=== PATIENT | male | born 1955 | race Caucasian/White ===

== ENCOUNTER → 2022-03-25 07:00 | Outpatient (CLI) | payer MEDICARE, OTHER, SELFPAY ==
[2022-03-25 18:51] LABS: Hemoglobin A1C 8.5 % (4.0-6.0)
[2022-03-25 19:11] LABS: Prostate Specific Ag Screen 1.7 ng/ml (0.0-4.0)
== END ==
PROVIDERS: PCP Family Medicine; Visit Provider Family Medicine
DX: Z85.46 Personal history of malignant neoplasm of prostate (principal); E11.9 Type 2 diabetes mellitus without complications; Z79.84 Long term (current) use of oral hypoglycemic drugs; Z12.5 Encounter for screening for malignant neoplasm of prostate
CPT/HCPCS: 83036; G0103

== ENCOUNTER → 2022-05-29 21:40 | Outpatient (CLI) | payer MEDICARE, OTHER, SELFPAY ==
[2022-05-29 18:34] LABS: Prostate Specific Ag, Diagnost 0.711 ng/ml (0.0-4.0)
== END ==
PROVIDERS: PCP Family Medicine; Visit Provider Family Medicine
DX: C61 Malignant neoplasm of prostate (principal)
CPT/HCPCS: 84153

== ENCOUNTER → 2022-07-02 23:27 | Outpatient (CLI) | payer MEDICARE, OTHER, SELFPAY ==
[2022-07-02 17:11] LABS: Basophils # 0.1 K/mm3 (0-0.2); Basophils % 0.9 % (0.1-2.0); Eosinophils # 0.2 K/mm3 (0.0-0.4); Eosinophils % 2.8 % (0.1-12.0); Hemoglobin 16.5 g/dL (14.1-18.0); Lymphocytes # 1.7 K/mm3 (0.7-4.5); Mean Corpuscular HGB Conc 33.7 g/dL (31.8-35.4); Mean Corpuscular Hemoglobin 31.3 pg (27.0-31.2); Mean Corpuscular Volume 92.8 fl (80-94); Mean Platelet Volume 9.9 fl (7.4-10.4); Monocytes # 0.8 K/mm3 (0.1-1.0); Monocytes % 9.3 % (1.7-9.3); Neutrophils # 5.3 K/mm3 (1.8-7.8); Neutrophils % 66.1 % (37.0-80.0); Platelet Count 181 K/mm3 (142-424); Red Blood Count 5.28 M/mm3 (4.60-6.20); Red Cell Distribution Width 13.3 % (11.5-17.5); White Blood Count 8.1 K/mm3 (4.8-10.8)
[2022-07-02 17:12] LABS: Alanine Aminotransferase 39 U/L (12-78); Albumin Level 3.9 g/dl (3.5-5.0); Albumin/Globulin Ratio 1.6 (1.1-1.8); Alkaline Phosphatase 78 U/L (38-126); Anion Gap 13.4 mEq/L (5-15); Aspartate Amino Transferase 36 U/L (17-59); Blood Urea Nitrogen 23 mg/dl (9-20); Calcium 9.1 mg/dl (8.4-10.2); Carbon Dioxide 28 mmol/L (22.0-30.0); Chloride 96 mmol/L (98-107); Chol/HDL Ratio 6.4 (1-3.5); Cholesterol 179 mg/dl (140-200); Estimated Glomerular Filt Rate 67 ml/min (>60); GFR (African American) 81 ML/MIN (>60); Globulin 2.4 g/dL (1.3-3.2); Glucose 203 mg/dl (74-100); HDL Cholesterol 28 mg/dl (40-60); Potassium 4.4 mmoL/L (3.5-5.1); Sodium 133 mmol/L (136-145); Total Protein,Serum 6.3 g/dl (6.3-8.2); Triglycerides 279 mg/dl (30-150); VLDL Cholesterol 56 mg/dL (0-40)
[2022-07-02 17:29] LABS: Creatinine,Urine Random 114 mg/dL (Not Estab.); Hemoglobin A1C 8.7 % (4.0-6.0)
[2022-07-02 17:30] LABS: Microalbumin/Creatinine Ratio 9.8
[2022-07-02 17:35] LABS: Direct LDL Cholesterol 110.43 mg/dL (100-129)
[2022-07-02 17:43] LABS: Prostate Specific Ag, Diagnost 0.566 ng/ml (0.0-4.0); Thyroid Stimulating Hormone 1.91 uIU/mL (0.465-4.68)
== END ==
PROVIDERS: PCP Family Medicine; Visit Provider Family Medicine
DX: C61 Malignant neoplasm of prostate (principal); E11.9 Type 2 diabetes mellitus without complications; E78.5 Hyperlipidemia, unspecified; I10 Essential (primary) hypertension; K21.9 Gastro-esophageal reflux disease without esophagitis; Z79.4 Long term (current) use of insulin
CPT/HCPCS: 80053; 80061; 82043; 82570; 83036; 84153; 84443; 85025

== ENCOUNTER → 2022-09-04 19:12 | Outpatient (CLI) | payer MEDICARE, OTHER, SELFPAY ==
[2022-09-04 20:59] LABS: Prostate Specific Ag, Diagnost 0.281 ng/ml (0.0-4.0)
== END ==
PROVIDERS: PCP Urology; Visit Provider Urology
DX: C61 Malignant neoplasm of prostate (principal)
CPT/HCPCS: 84153

== ENCOUNTER → 2022-11-26 23:00 | Outpatient (CLI) | payer MEDICARE, OTHER, SELFPAY ==
[2022-11-26 17:30] LABS: Prostate Specific Ag, Diagnost 0.202 ng/ml (0.0-4.0)
[2022-11-26 19:12] LABS: Hemoglobin A1C 8.6 % (4.0-6.0)
== END ==
PROVIDERS: PCP Family Medicine; Visit Provider Family Medicine
DX: C61 Malignant neoplasm of prostate (principal); E11.9 Type 2 diabetes mellitus without complications; Z79.84 Long term (current) use of oral hypoglycemic drugs
CPT/HCPCS: 83036; 84153

== ENCOUNTER → 2023-02-15 21:42 | Outpatient (CLI) | payer MEDICARE, OTHER, SELFPAY ==
[2023-02-17 11:13] LABS: Prostate Specific Ag, Diagnost 0.095 ng/ml (0.0-4.0)
== END ==
PROVIDERS: PCP Urology; Visit Provider Urology
DX: C61 Malignant neoplasm of prostate (principal)
CPT/HCPCS: 84153

== ENCOUNTER 2023-06-21 17:52 | Outpatient (CLI) | payer MEDICARE, OTHER, SELFPAY ==
[2023-06-21 16:16] LABS: Basophils # 0.1 K/mm3 (0-0.2); Basophils % 0.9 % (0.1-2.0); Eosinophils # 0.2 K/mm3 (0.0-0.4); Eosinophils % 2.7 % (0.1-12.0); Hematocrit 49.6 % (42.0-52.0); Hemoglobin 15.9 g/dL (14.1-18.0); Lymphocytes # 1.7 K/mm3 (0.7-4.5); Lymphocytes % 24.1 % (10-50); Mean Corpuscular HGB Conc 32.1 g/dL (31.8-35.4); Mean Corpuscular Hemoglobin 32.1 pg (27.0-31.2); Mean Corpuscular Volume 100.2 fl (80-94); Mean Platelet Volume 9.8 fl (7.4-10.4); Monocytes # 0.6 K/mm3 (0.1-1.0); Neutrophils # 4.4 K/mm3 (1.8-7.8); Neutrophils % 64.3 % (37.0-80.0); Platelet Count 140 K/mm3 (142-424); Red Blood Count 4.96 M/mm3 (4.60-6.20); Red Cell Distribution Width 13.4 % (11.5-17.5); White Blood Count 6.9 K/mm3 (4.8-10.8)
[2023-06-21 16:58] LABS: Alanine Aminotransferase 32 U/L (12-78); Albumin Level 3.9 g/dl (3.5-5.0); Albumin/Globulin Ratio 1.6 (1.1-1.8); Alkaline Phosphatase 91 U/L (38-126); Anion Gap 9.7 mEq/L (5-15); Aspartate Amino Transferase 29 U/L (17-59); Bilirubin,Total 0.9 mg/dl (0.2-1.3); Blood Urea Nitrogen 27 mg/dl (9-20); Calcium 9.6 mg/dl (8.4-10.2); Carbon Dioxide 30 mmol/L (22.0-30.0); Chloride 101 mmol/L (98-107); Cholesterol 182 mg/dl (140-200); Estimated Glomerular Filt Rate 67 ml/min (>60); GFR (African American) 81 ML/MIN (>60); Globulin 2.5 g/dL (1.3-3.2); Glucose 243 mg/dl (74-100); HDL Cholesterol 26 mg/dl (40-60); Potassium 4.7 mmoL/L (3.5-5.1); Sodium 136 mmol/L (136-145); Total Protein,Serum 6.4 g/dl (6.3-8.2); Triglycerides 273 mg/dl (30-150); VLDL Cholesterol 55 mg/dL (0-40)
[2023-06-21 17:09] LABS: Direct LDL Cholesterol 104.92 mg/dL (100-129)
[2023-06-21 17:14] LABS: Microalbumin/Creatinine Ratio 9.2
[2023-06-21 17:19] LABS: Creatinine,Urine Random 98 mg/dL (Not Estab.)
[2023-06-21 17:28] LABS: Prostate Specific Ag, Diagnost 0.083 ng/ml (0.0-4.0)
[2023-06-21 17:51] LABS: Hemoglobin A1C 9.6 % (4.0-6.0)
== END 2023-06-21 23:59 ==
LOC: LAB.DROPOF 17:52
PROVIDERS: PCP Family Medicine; Visit Provider Family Medicine
DX: E11.9 Type 2 diabetes mellitus without complications (principal); I10 Essential (primary) hypertension; C61 Malignant neoplasm of prostate; Z79.4 Long term (current) use of insulin; Z79.84 Long term (current) use of oral hypoglycemic drugs
CPT/HCPCS: 80053; 80061; 82043; 82570; 83036; 84153; 85025

== ENCOUNTER 2023-08-29 21:20 | Inpatient (IN) | payer MEDICARE, OTHER, SELFPAY ==
--- NOTE | 2023-08-29 21:59 | [facility].EDGENADL ---
Discharge Plan Disposition Patient Disposition: Admitted Prescriptions Prescriptions: No Action (DME) Accu-Chek Ashly Plus test strp Strip See Rx Instructions .Route Qty: 100 5RF Rx Instructions: Use to check blood sugar BID times daily prn atorvastatin 40 mg tablet 40 mg PO DAILY Qty: 90 3RF bisoprolol fumarate 5 mg tablet 5 mg PO DAILY Qty: 90 3RF fenofibrate 160 mg tablet 160 mg PO DAILY Qty: 90 3RF lisinopril-hydrochlorothiazide 10-12.5 mg tablet See Rx Instructions .ROUTE .COMPLEX Qty: 90 3RF Dose Instruction: TAKE 1 TABLET EVERY DAY Rx Instructions: TAKE 1 TABLET EVERY DAY metformin 500 mg tablet 500 mg PO BID 90 Days Qty: 180 3RF omeprazole 20 mg capsule,delayed release(DR/EC) 20 mg PO DAILY 90 Days Qty: 90 3RF codeine-guaifenesin 10-100 mg/5 mL liquid 10 ml PO Q6H PRN (Reason: cough) Qty: 120 2RF (DME) pen needle, diabetic [BD Ultra-Fine Short Pen Needle] 31 gauge x 5/16 needle See Rx Instructions .Route Qty: 100 6RF Rx Instructions: As directed Novolin 70-30 FlexPen U-100 100 unit/mL (70-30) insulin pen 50 unit SQ BID 90 Days Qty: 90 3RF Rx Instructions: 60 units in the morning and 50 units QHS (DME) pen needle, diabetic [Droplet Pen Needle] 32 gauge x 5/32 needle See Rx Instructions .ROUTE .MEDSUPPLY Qty: 100 3RF Rx Instructions: As directed Referrals Follow up/Referrals: Saskia Vora APRN [Primary Care Provider] - See instructions Clinical Impressions Clinical Impression: Pulmonary embolism with acute cor pulmonale Qualifiers: Pulmonary embolism type: other Chronicity: acute Qualified Code(s): I26.09 - Other pulmonary embolism with acute cor pulmonale Discharge ED Provider: Andriy Ruiz General Adult HPI <DEBORA Joel - Last Filed: 08/29/23 22:54> General Chief complaint: Shortness of Breath/Dyspnea Stated complaint: SOA, cough Time Seen by Provider: 08/29/23 21:45 History of Present Illness HPI narrative: Patient presents with 30 days of progressive dyspnea and bilateral lower extremity swelling. Patient initially was diagnosed what was thought to be an upper respiratory tract infection prescribed antibiotics however his dyspnea on exertion did not improve. He was then diagnosed with bronchitis and prescribed another round of antibiotics however his dyspnea has continued to worsen. Patient is now reported that he is dyspneic even with light exertion and sometimes even at rest. Patient however denies chest pain fever chills hemoptysis hematochezia melena nausea vomit diarrhea or productive cough. Patient denies a history of known CHF however he does have risk factors including hyperlipidemia hypertension and insulin-dependent type 2 diabetes mellitus.. Related Data Previous Rx's Medication Instructions Recorded pen needle, diabetic 31 gauge x #100 ea 05/04/2208/25 (BD Ultra-Fine Short Pen Needle) blood sugar diagnostic (Accu-Chek #100 ea 07/02/22 Ashly Plus test strips) atorvastatin 40 mg tablet 40 mg PO DAILY #90 tabs 11/26/22 bisoprolol fumarate 5 mg tablet 5 mg PO DAILY #90 tabs 11/26/22 fenofibrate 160 mg tablet 160 mg PO DAILY #90 tabs 11/26/22 lisinopril 10 See Rx Instructions .Route 11/26/22 mg-hydrochlorothiazide 12.5 mg .COMPLEX #90 tabs tablet metformin 500 mg tablet 500 mg PO BID 90 days #180 tabs 11/26/22 omeprazole 20 mg capsule,delayed 20 mg PO DAILY 90 days #90 caps 11/26/22 release insulin NPH-regular 70-30 U-100 50 unit (0.5 mL) SQ BID 90 days 11/27/22 insulin 100 unit/mL subcutaneous #90 mL pen (Novolin 70-30 FlexPen U-100 Insulin) pen needle, diabetic 32 gauge x #100 ea 05/24/23 (Droplet Pen Needle) codeine 10 mg-guaifenesin 100 mg/5 10 ml PO Q6H PRN cough #120 mL 08/27/23 mL oral liquid Allergies Allergy/AdvReac Type Severity Reaction Status Date / Time acetaminophen [From Lortab] Allergy Verified 08/27/23 09:00 hydrocodone [From Lortab] Allergy Verified 08/27/23 09:00 [facility] <DEBORA Joel - Last Filed: 08/29/23 22:54> [facility] Disclaimer: The information contained in this section may have been updated after the patient was seen, as this information can be updated by other users. Medical History History of prostate cancer Cataract FH: cholecystectomy Prostate cancer Hyperlipidemia Hypertension Diabetes mellitus Surgical History H/O circumcision History of appendectomy H/O knee surgery Family History Mother Stroke Father Stroke Social History Smoking Status: Unknown if ever smoked second hand exposure: No alcohol intake: never current occupational status: retired Travel in the last 8 weeks: None household members: spouse housing: house marital status: <DEBORA Joel - Last Filed: 08/29/23 22:54> ROS Obtained: Yes Systems reviewed as appropriate & no additional complaints except as documented Physical Exam <DEBORA Joel - Last Filed: 08/29/23 22:54> General General appearance: alert and in no apparent distress Head Head exam: atraumatic and normal inspection Eye Eye exam: Present normal appearance, PERRL and EOMI ENT ENT exam: Present normal exam, normal oropharynx and mucous membranes moist Neck Neck exam: Present normal inspection and full ROM; Absent lymphadenopathy Chest Chest inspection: Present normal inspection and symmetric chest wall rise Respiratory Respiratory exam: Present normal lung sounds bilaterally and respiratory distress; Absent wheezes, stridor or accessory muscle use Cardiovascular Cardiovascular exam: Present regular rate, normal rhythm, normal heart sounds, +S1 and +S2 Abdominal Exam Abdominal exam: Present soft (Central obesity) and normal bowel sounds; Absent tenderness, guarding or rebound Extremities Exam Extremities exam: Present normal inspection, full ROM and edema (3+ bilateral pitting edema); Absent tenderness Back Exam Back exam: Present normal inspection and full ROM; Absent tenderness, CVA tenderness (R) or CVA tenderness (L) Neurological Exam Neurological exam: Present alert, oriented X3 and CN II-XII intact Psychiatric Psychiatric exam: Present normal affect and normal mood Skin Skin exam: Present warm, dry and normal color Medical Decision Making <DEBORA Joel - Last Filed: 08/29/23 22:54> Medical Records Medical records reviewed: Yes I reviewed the patient's medical records. Kuldip Inquiry Pt receiving controlled substance: No Vital Signs: 08/29/23 22:18 08/29/23 23:01 08/29/23 23:15 Temperature 98.2 F Temperature Source Oral Pulse Rate 98 H 98 H Pulse Rate [Right Brachial] 101 H Respiratory Rate 16 24 Blood Pressure 118/69 124/83 Blood Pressure [Right Arm] 124/81 Blood Pressure Mean 85 Blood Pressure Mean [Right Arm] 95 Blood Pressure Source [Right Arm] Automatic Cuff Blood Pressure Position [Right Arm] Sitting 02 Sat by Pulse Oximetry 93 L 91 L 91 L Oxygen Delivery Method Room Air 08/29/23 23:30 08/30/23 00:10 Temperature Temperature Source Pulse Rate 97 H 111 H Pulse Rate [Right Brachial] Respiratory Rate 23 Blood Pressure 98/72 L Blood Pressure [Right Arm] Blood Pressure Mean Blood Pressure Mean [Right Arm] Blood Pressure Source [Right Arm] Blood Pressure Position [Right Arm] 02 Sat by Pulse Oximetry 89 L 89 L Oxygen Delivery Method Lab Data Lab results reviewed: Yes I reviewed the patient's lab results. Lab Results 08/29/23 22:34: WBC 10.7, RBC 4.50 L, Hgb 16.0, Hct 43.2, MCV 96.0 H, MCH 35.5 H, MCHC 36.9 H, RDW 14.0, Plt Count 113 L, MPV 9.0, Neut % (Auto) 72.4, Lymph % (Auto) 18.0, Graves % (Auto) 7.3, Eos % (Auto) 1.6, Baso % (Auto) 0.7, Neut # (Auto) 7.7, Lymph # (Auto) 1.9, Graves # (Auto) 0.8, Eos # (Auto) 0.2, Baso # (Auto) 0.1, PT 11.8, INR 1.10, D-Dimer 6.43 H, Sodium 135 L, Potassium 4.1, Chloride 99, Carbon Dioxide 26, Anion Gap 14.1, BUN 26 H, Creatinine 1.20, Estimated Creat Clear 59, Estimated GFR 60, Est GFR ( Amer) 73, Glucose 372 H, Calcium 9.6, Magnesium 1.5 L, Total Bilirubin 0.7, AST 99 H, ALT 162 H, Alkaline Phosphatase 105, Troponin I 0.12 H, NT-Pro-B Natriuret Pep 4530 H, Total Protein 6.7, Albumin 3.9, Globulin 2.8, Albumin/Globulin Ratio 1.4 08/30/23 00:00: Urine Color Yellow, Urine Appearance Clear, Urine pH 5.5, Ur Specific Vina 1.015, Urine Protein Negative, Urine Glucose (UA) 3+, Urine Ketones Negative, Urine Blood Trace-i, Urine Nitrate Negative, Urine Bilirubin Negative, Urine Urobilinogen 0.2, Ur Leukocyte Esterase Negative, Urine RBC Occasional, Urine WBC None, Ur Squamous Epith Cells Occasional, Urine Bacteria None 08/29/23 22:34 08/29/23 22:34 Orders (Tests/Meds): ED MEDICATIONS Generic Name Dose Route Start Last Admin Trade Name Freq PRN Reason Stop Dose Admin Enoxaparin Sodium 135 mg 08/30/23 00:15 Enoxaparin 100mg/Ml Syringe 1 mg/kg (135 mg) 09/29/23 00:14 SQ Q12H SHAWN Nicotine 21 mg 08/30/23 00:20 Nicotine 21mg/24hr Patch TD 09/29/23 00:19 DAILYP PRN Nicotine Cravings Ondansetron HCl 4 mg 08/30/23 00:20 Ondansetron 4mg/2ml Vial IV 09/29/23 00:19 Q8HP PRN Nausea Pantoprazole Sodium 40 mg 08/30/23 09:00 Pantoprazole 40mg Tablet PO 09/29/23 08:59 DAILY SHAWN Sodium Chloride 10 ml 08/30/23 00:12 08/30/23 00:13 Sodium Chloride 0.9% 10ml Syr (Rad Only) IV 09/29/23 00:11 10 ml NEEDED PRN Administration Maintain IV Site Discontinued Medications Generic Name Dose Route Start Last Admin Trade Name Freq PRN Reason Stop Dose Admin Furosemide 40 mg 08/29/23 22:12 08/29/23 23:16 Furosemide 40mg/4ml Vial IV 08/29/23 22:13 40 mg ONCE ONE Administration Sodium Chloride 1,000 mls @ 75 mls/hr 08/30/23 00:30 Sod Chlor 0.9% 1000ml Bag IV 09/29/23 00:29 .[id number] SHAWN Iopamidol 70 ml 08/30/23 00:12 08/30/23 00:13 Iopamidol-370 (76%);100ml Bottle IV 08/30/23 00:13 70 ml ONCE ONE Administration Sodium Chloride 50 ml 08/30/23 00:12 08/30/23 00:13 0.9 % Sodium Chloride 50 Ml Vial IV 08/30/23 00:13 50 ml ONCE ONE Administration ORDERS Category Date Time Status CT angio chest PE protocol Stat Cat Scan 08/29/23 23:09 Completed Cardiology Consult [Consult to Cardiology] [CONS] Cons 08/30/23 00:20 Active Routine Consult to Cardiology [CONS] Routine Cons 08/30/23 00:21 Active Chest XR 2 view (NOT portable) [XR chest 2V] Stat Exams 08/29/23 22:12 Completed POCUS Point of Care (ER Only) Stat Exams 08/29/23 22:15 Completed BNP [NT Pro Brain Natriuretic Pep.] Stat Lab 08/29/23 22:34 Completed CBC w/Auto Diff [Complete Blood Count Auto Diff] Stat Lab 08/29/23 22:34 Completed CMP [Comprehensive Metabolic Panel] Stat Lab 08/29/23 22:34 Completed Complete Blood Count Auto Diff AMLAB Lab 08/30/23 06:00 Ordered Comprehensive Metabolic Panel AMLAB Lab 08/30/23 06:00 Ordered D-Dimer Stat Lab 08/29/23 22:34 Completed INR [Prothrombin Time INR] Stat Lab 08/29/23 22:34 Completed Magnesium AMLAB Lab 08/30/23 06:00 Ordered Magnesium Stat Lab 08/29/23 22:34 Completed Trop I [Troponin I] Stat Lab 08/29/23 22:34 Completed Troponin I Q3H Lab 08/30/23 01:30 Ordered Troponin I Q3H Lab 08/30/23 04:30 Ordered UA [Urinalysis and Microscopic] Stat Lab 08/30/23 00:00 Completed Medical Decision Narrative: In summary patient is a 68-year-old male who presents to the emergency department for evaluation of dyspnea. Patient is normotensive slightly elevated heart rate but afebrile satting at greater than 94% on room air currently upon arrival, and afebrile. Physical exam is remarkable for 3+ bilateral dependent edema but breath sounds are clear and equal bilaterally may be slightly diminished at the right base with no adventitious sounds. Differential diagnosis includes CHF versus anasarca versus venous insufficiency versus ACS etc. Initial workup will be conducted with hematologic labs 2 view x-ray of the chest urinalysis twelve-lead EKG. Initial interventions include Lasix 40 mg IV push initially pending lab workup. Initial workup pending at the time of handoff to Dr. Ruiz at 2300 hrs. <Carter Hall MD - Last Filed: 08/29/23 23:10> Vital Signs: 08/29/23 22:18 08/29/23 23:01 08/29/23 23:15 Temperature 98.2 F Temperature Source Oral Pulse Rate 98 H 98 H Pulse Rate [Right Brachial] 101 H Respiratory Rate 16 24 Blood Pressure 118/69 124/83 Blood Pressure [Right Arm] 124/81 Blood Pressure Mean 85 Blood Pressure Mean [Right Arm] 95 Blood Pressure Source [Right Arm] Automatic Cuff Blood Pressure Position [Right Arm] Sitting 02 Sat by Pulse Oximetry 93 L 91 L 91 L Oxygen Delivery Method Room Air 08/29/23 23:30 08/30/23 00:10 Temperature Temperature Source Pulse Rate 97 H 111 H Pulse Rate [Right Brachial] Respiratory Rate 23 Blood Pressure 98/72 L Blood Pressure [Right Arm] Blood Pressure Mean Blood Pressure Mean [Right Arm] Blood Pressure Source [Right Arm] Blood Pressure Position [Right Arm] 02 Sat by Pulse Oximetry 89 L 89 L Oxygen Delivery Method Lab Data Lab Results 08/29/23 22:34: WBC 10.7, RBC 4.50 L, Hgb 16.0, Hct 43.2, MCV 96.0 H, MCH 35.5 H, MCHC 36.9 H, RDW 14.0, Plt Count 113 L, MPV 9.0, Neut % (Auto) 72.4, Lymph % (Auto) 18.0, Graves % (Auto) 7.3, Eos % (Auto) 1.6, Baso % (Auto) 0.7, Neut # (Auto) 7.7, Lymph # (Auto) 1.9, Graves # (Auto) 0.8, Eos # (Auto) 0.2, Baso # (Auto) 0.1, PT 11.8, INR 1.10, D-Dimer 6.43 H, Sodium 135 L, Potassium 4.1, Chloride 99, Carbon Dioxide 26, Anion Gap 14.1, BUN 26 H, Creatinine 1.20, Estimated Creat Clear 59, Estimated GFR 60, Est GFR ( Amer) 73, Glucose 372 H, Calcium 9.6, Magnesium 1.5 L, Total Bilirubin 0.7, AST 99 H, ALT 162 H, Alkaline Phosphatase 105, Troponin I 0.12 H, NT-Pro-B Natriuret Pep 4530 H, Total Protein 6.7, Albumin 3.9, Globulin 2.8, Albumin/Globulin Ratio 1.4 08/30/23 00:00: Urine Color Yellow, Urine Appearance Clear, Urine pH 5.5, Ur Specific Vina 1.015, Urine Protein Negative, Urine Glucose (UA) 3+, Urine Ketones Negative, Urine Blood Trace-i, Urine Nitrate Negative, Urine Bilirubin Negative, Urine Urobilinogen 0.2, Ur Leukocyte Esterase Negative, Urine RBC Occasional, Urine WBC None, Ur Squamous Epith Cells Occasional, Urine Bacteria None Orders (Tests/Meds): ED MEDICATIONS Generic Name Dose Route Start Last Admin Trade Name Freq PRN Reason Stop Dose Admin Enoxaparin Sodium 135 mg 08/30/23 00:15 Enoxaparin 100mg/Ml Syringe 1 mg/kg (135 mg) 09/29/23 00:14 SQ Q12H SHAWN Nicotine 21 mg 08/30/23 00:20 Nicotine 21mg/24hr Patch TD 09/29/23 00:19 DAILYP PRN Nicotine Cravings Ondansetron HCl 4 mg 08/30/23 00:20 Ondansetron 4mg/2ml Vial IV 09/29/23 00:19 Q8HP PRN Nausea Pantoprazole Sodium 40 mg 08/30/23 09:00 Pantoprazole 40mg Tablet PO 09/29/23 08:59 DAILY SHAWN Sodium Chloride 10 ml 08/30/23 00:12 08/30/23 00:13 Sodium Chloride 0.9% 10ml Syr (Rad Only) IV 09/29/23 00:11 10 ml NEEDED PRN Administration Maintain IV Site Discontinued Medications Generic Name Dose Route Start Last Admin Trade Name Freq PRN Reason Stop Dose Admin Furosemide 40 mg 08/29/23 22:12 08/29/23 23:16 Furosemide 40mg/4ml Vial IV 08/29/23 22:13 40 mg ONCE ONE Administration Sodium Chloride 1,000 mls @ 75 mls/hr 08/30/23 00:30 Sod Chlor 0.9% 1000ml Bag IV 09/29/23 00:29 .[id number] SHAWN Iopamidol 70 ml 08/30/23 00:12 08/30/23 00:13 Iopamidol-370 (76%);100ml Bottle IV 08/30/23 00:13 70 ml ONCE ONE Administration Sodium Chloride 50 ml 08/30/23 00:12 08/30/23 00:13 0.9 % Sodium Chloride 50 Ml Vial IV 08/30/23 00:13 50 ml ONCE ONE Administration ORDERS Category Date Time Status CT angio chest PE protocol Stat Cat Scan 08/29/23 23:09 Completed Cardiology Consult [Consult to Cardiology] [CONS] Cons 08/30/23 00:20 Active Routine Consult to Cardiology [CONS] Routine Cons 08/30/23 00:21 Active Chest XR 2 view (NOT portable) [XR chest 2V] Stat Exams 08/29/23 22:12 Completed POCUS Point of Care (ER Only) Stat Exams 08/29/23 22:15 Completed BNP [NT Pro Brain Natriuretic Pep.] Stat Lab 08/29/23 22:34 Completed CBC w/Auto Diff [Complete Blood Count Auto Diff] Stat Lab 08/29/23 22:34 Completed CMP [Comprehensive Metabolic Panel] Stat Lab 08/29/23 22:34 Completed Complete Blood Count Auto Diff AMLAB Lab 08/30/23 06:00 Ordered Comprehensive Metabolic Panel AMLAB Lab 08/30/23 06:00 Ordered D-Dimer Stat Lab 08/29/23 22:34 Completed INR [Prothrombin Time INR] Stat Lab 08/29/23 22:34 Completed Magnesium AMLAB Lab 08/30/23 06:00 Ordered Magnesium Stat Lab 08/29/23 22:34 Completed Trop I [Troponin I] Stat Lab 08/29/23 22:34 Completed Troponin I Q3H Lab 08/30/23 01:30 Ordered Troponin I Q3H Lab 08/30/23 04:30 Ordered UA [Urinalysis and Microscopic] Stat Lab 08/30/23 00:00 Completed ECG Data Tracing #1: Independently interpreted by me, rate is 101, rhythm is regular, axis is borderline leftward deviated, no ST elevation in anatomical contiguous leads, diffuse T wave inversions. QTc 464 <Andriy Ruiz MD - Last Filed: 08/30/23 00:29> Vital Signs: 08/29/23 22:18 08/29/23 23:01 08/29/23 23:15 Temperature 98.2 F Temperature Source Oral Pulse Rate 98 H 98 H Pulse Rate [Right Brachial] 101 H Respiratory Rate 16 24 Blood Pressure 118/69 124/83 Blood Pressure [Right Arm] 124/81 Blood Pressure Mean 85 Blood Pressure Mean [Right Arm] 95 Blood Pressure Source [Right Arm] Automatic Cuff Blood Pressure Position [Right Arm] Sitting 02 Sat by Pulse Oximetry 93 L 91 L 91 L Oxygen Delivery Method Room Air 08/29/23 23:30 08/30/23 00:10 Temperature Temperature Source Pulse Rate 97 H 111 H Pulse Rate [Right Brachial] Respiratory Rate 23 Blood Pressure 98/72 L Blood Pressure [Right Arm] Blood Pressure Mean Blood Pressure Mean [Right Arm] Blood Pressure Source [Right Arm] Blood Pressure Position [Right Arm] 02 Sat by Pulse Oximetry 89 L 89 L Oxygen Delivery Method Lab Data Lab Results 08/29/23 22:34: WBC 10.7, RBC 4.50 L, Hgb 16.0, Hct 43.2, MCV 96.0 H, MCH 35.5 H, MCHC 36.9 H, RDW 14.0, Plt Count 113 L, MPV 9.0, Neut % (Auto) 72.4, Lymph % (Auto) 18.0, Graves % (Auto) 7.3, Eos % (Auto) 1.6, Baso % (Auto) 0.7, Neut # (Auto) 7.7, Lymph # (Auto) 1.9, Graves # (Auto) 0.8, Eos # (Auto) 0.2, Baso # (Auto) 0.1, PT 11.8, INR 1.10, D-Dimer 6.43 H, Sodium 135 L, Potassium 4.1, Chloride 99, Carbon Dioxide 26, Anion Gap 14.1, BUN 26 H, Creatinine 1.20, Estimated Creat Clear 59, Estimated GFR 60, Est GFR ( Amer) 73, Glucose 372 H, Calcium 9.6, Magnesium 1.5 L, Total Bilirubin 0.7, AST 99 H, ALT 162 H, Alkaline Phosphatase 105, Troponin I 0.12 H, NT-Pro-B Natriuret Pep 4530 H, Total Protein 6.7, Albumin 3.9, Globulin 2.8, Albumin/Globulin Ratio 1.4 08/30/23 00:00: Urine Color Yellow, Urine Appearance Clear, Urine pH 5.5, Ur Specific Vina 1.015, Urine Protein Negative, Urine Glucose (UA) 3+, Urine Ketones Negative, Urine Blood Trace-i, Urine Nitrate Negative, Urine Bilirubin Negative, Urine Urobilinogen 0.2, Ur Leukocyte Esterase Negative, Urine RBC Occasional, Urine WBC None, Ur Squamous Epith Cells Occasional, Urine Bacteria None Orders (Tests/Meds): ED MEDICATIONS Generic Name Dose Route Start Last Admin Trade Name Alexandra PRN Reason Stop Dose Admin Enoxaparin Sodium 135 mg 08/30/23 00:15 Enoxaparin 100mg/Ml Syringe 1 mg/kg (135 mg) 09/29/23 00:14 SQ Q12H SHAWN Nicotine 21 mg 08/30/23 00:20 Nicotine 21mg/24hr Patch TD 09/29/23 00:19 DAILYP PRN Nicotine Cravings Ondansetron HCl 4 mg 08/30/23 00:20 Ondansetron 4mg/2ml Vial IV 09/29/23 00:19 Q8HP PRN Nausea Pantoprazole Sodium 40 mg 08/30/23 09:00 Pantoprazole 40mg Tablet PO 09/29/23 08:59 DAILY SHAWN Sodium Chloride 10 ml 08/30/23 00:12 08/30/23 00:13 Sodium Chloride 0.9% 10ml Syr (Rad Only) IV 09/29/23 00:11 10 ml NEEDED PRN Administration Maintain IV Site Discontinued Medications Generic Name Dose Route Start Last Admin Trade Name Alexandra PRN Reason Stop Dose Admin Furosemide 40 mg 08/29/23 22:12 08/29/23 23:16 Furosemide 40mg/4ml Vial IV 08/29/23 22:13 40 mg ONCE ONE Administration Sodium Chloride 1,000 mls @ 75 mls/hr 08/30/23 00:30 Sod Chlor 0.9% 1000ml Bag IV 09/29/23 00:29 .[id number] SHAWN Iopamidol 70 ml 08/30/23 00:12 08/30/23 00:13 Iopamidol-370 (76%);100ml Bottle IV 08/30/23 00:13 70 ml ONCE ONE Administration Sodium Chloride 50 ml 08/30/23 00:12 08/30/23 00:13 0.9 % Sodium Chloride 50 Ml Vial IV 08/30/23 00:13 50 ml ONCE ONE Administration ORDERS Category Date Time Status CT angio chest PE protocol Stat Cat Scan 08/29/23 23:09 Completed Cardiology Consult [Consult to Cardiology] [CONS] Cons 08/30/23 00:20 Active Routine Consult to Cardiology [CONS] Routine Cons 08/30/23 00:21 Active Chest XR 2 view (NOT portable) [XR chest 2V] Stat Exams 08/29/23 22:12 Completed POCUS Point of Care (ER Only) Stat Exams 08/29/23 22:15 Completed BNP [NT Pro Brain Natriuretic Pep.] Stat Lab 08/29/23 22:34 Completed CBC w/Auto Diff [Complete Blood Count Auto Diff] Stat Lab 08/29/23 22:34 Completed CMP [Comprehensive Metabolic Panel] Stat Lab 08/29/23 22:34 Completed Complete Blood Count Auto Diff AMLAB Lab 08/30/23 06:00 Ordered Comprehensive Metabolic Panel AMLAB Lab 08/30/23 06:00 Ordered D-Dimer Stat Lab 08/29/23 22:34 Completed INR [Prothrombin Time INR] Stat Lab 08/29/23 22:34 Completed Magnesium AMLAB Lab 08/30/23 06:00 Ordered Magnesium Stat Lab 08/29/23 22:34 Completed Trop I [Troponin I] Stat Lab 08/29/23 22:34 Completed Troponin I Q3H Lab 08/30/23 01:30 Ordered Troponin I Q3H Lab 08/30/23 04:30 Ordered UA [Urinalysis and Microscopic] Stat Lab 08/30/23 00:00 Completed HEART Score History (anamnesis): Slightly suspicious ECG: Non-specific disturbance Age: >65 years Risk factors: 3 or more risk factors Troponin: > 3x normal limit HEART Score: 7 Medical Decision Narrative: In summary patient is a 68-year-old male who presents to the emergency department for evaluation of dyspnea. Patient is normotensive slightly elevated heart rate but afebrile satting at greater than 94% on room air currently upon arrival, and afebrile. Physical exam is remarkable for 3+ bilateral dependent edema but breath sounds are clear and equal bilaterally may be slightly diminished at the right base with no adventitious sounds. Differential diagnosis includes CHF versus anasarca versus venous insufficiency versus ACS etc. Initial workup will be conducted with hematologic labs 2 view x-ray of the chest urinalysis twelve-lead EKG. Initial interventions include Lasix 40 mg IV push initially pending lab workup. Initial workup pending at the time of handoff to Dr. Ruiz at 2300 hrs. Joseph MERCADO: I assumed care of the patient at the time of handoff from the prior provider. On reassessment patient remains hemodynamically stable. D-dimer returns markedly elevated. Initial troponin elevated at 0.12. CT PE ordered and independently interpreted by me which shows extensive right-sided and some left-sided pulmonary embolism including the right upper right middle and right lower lobe segmental PE. CT also shows considerable right heart strain. Patient was initiated on 1 mg/kg of Lovenox. Interactive discussion was had with cardiology on-call who recommends admission and reevaluation in the morning for possible thrombectomy. Interactive discussion was had with the hospitalist on-call for admission. I was consulted by the KATLYN, and we discussed the complexity of the problems being addressed. I approved the treatment and management plan for this patient?s care in the Emergency Department, thus performing a substantive portion of the medical decision making. Andriy Ruiz MD Critical Care <DEBORA Joel - Last Filed: 08/29/23 22:54> Critical Care Time Critical Care Time: No <Andriy Ruiz MD - Last Filed: 08/30/23 00:29> Critical Care Time Critical Care Time: Yes Attestation: On 08/29/23, the high probability of a clinically significant, sudden or life threatening deterioration of the following system(s) cardiac required my full and direct attention, intervention and personal management. The time I documented below is in addition to time spent performing reported procedures but includes the following listed in this critical care notation. Total Time Total Critical Care Time: 40
--- NOTE | 2023-08-29 22:12 | XR_ITS ---
PROCEDURE INFORMATION: Exam: XR Chest Exam date and time: 08/29/2023 10:13 PM Age: 68 years old Clinical indication: Dyspnea; Additional info: Dyspnea on exertion TECHNIQUE: Imaging protocol: Radiologic exam of the chest. Views: 2 views. COMPARISON: No relevant prior studies available. FINDINGS: Lungs: There are multifocal parenchymal opacities which could reflect infection or edema. Pleural spaces: No large effusion or pneumothorax. Heart/Mediastinum: No evidence of mediastinal widening or cardiac silhouette enlargement; the mediastinum and heart appear within normal limits for contour and size. Bones/joints: No evidence of acute osseous abnormalities within the visualized portions of the thoracic spine and ribs. Osseous structures appear appropriate for patient age. IMPRESSION: There are multifocal parenchymal opacities which could reflect infection or edema.
[2023-08-29 22:18] VITALS: BP 124/81; PULSE 101; RESP 16; TEMP 36.8; O2SAT 93; BMI 43.4
[2023-08-29 22:47] LABS: Basophils # 0.1 K/mm3 (0-0.2); Basophils % 0.7 % (0.1-2.0); Eosinophils # 0.2 K/mm3 (0.0-0.4); Eosinophils % 1.6 % (0.1-12.0); Hematocrit 43.2 % (42.0-52.0); Lymphocytes # 1.9 K/mm3 (0.7-4.5); Mean Corpuscular HGB Conc 36.9 g/dL (31.8-35.4); Mean Corpuscular Hemoglobin 35.5 pg (27.0-31.2); Monocytes # 0.8 K/mm3 (0.1-1.0); Monocytes % 7.3 % (1.7-9.3); Neutrophils # 7.7 K/mm3 (1.8-7.8); Neutrophils % 72.4 % (37.0-80.0); Platelet Count 113 K/mm3 (142-424); White Blood Count 10.7 K/mm3 (4.8-10.8)
[2023-08-29 22:53] LABS: Prothrombin Time 11.8 seconds (10.1-12.5)
[2023-08-29 22:54] LABS: Alanine Aminotransferase 162 U/L (12-78); Albumin Level 3.9 g/dl (3.5-5.0); Albumin/Globulin Ratio 1.4 (1.1-1.8); Alkaline Phosphatase 105 U/L (38-126); Anion Gap 14.1 mEq/L (5-15); Aspartate Amino Transferase 99 U/L (17-59); Bilirubin,Total 0.7 mg/dl (0.2-1.3); Blood Urea Nitrogen 26 mg/dl (9-20); Calcium 9.6 mg/dl (8.4-10.2); Carbon Dioxide 26 mmol/L (22.0-30.0); Chloride 99 mmol/L (98-107); Creatinine Clearance Estimated 59 mL/min (50-200); Estimated Glomerular Filt Rate 60 ml/min (>60); GFR (African American) 73 ML/MIN (>60); Globulin 2.8 g/dL (1.3-3.2); Glucose 372 mg/dl (74-100); Magnesium 1.5 mg/dl (1.6-2.3); Potassium 4.1 mmoL/L (3.5-5.1); Sodium 135 mmol/L (136-145); Total Protein,Serum 6.7 g/dl (6.3-8.2)
[2023-08-29 23:01] VITALS: BP 118/69; PULSE 98; O2SAT 91
[2023-08-29 23:03] LABS: D-Dimer 6.43 ug/mL (0.0-0.5)
[2023-08-29 23:06] LABS: NT Pro Brain Natriuretic Pep. 4530 pg/mL (0-125); Troponin I 0.12 ng/ml (0.00-0.034)
--- NOTE | 2023-08-29 23:09 | CT_ITS ---
PROCEDURE INFORMATION: Exam: CTA Chest With Contrast Exam date and time: 08/29/2023 11:59 PM Age: 68 years old Clinical indication: Shortness of breath; Additional info: SOA, positive dimer TECHNIQUE: Imaging protocol: Computed tomographic angiography of the chest with contrast. Exam focused on the arteries. 3D rendering (Not supervised by radiologist): MIP and/or 3D reconstructed images were created by the technologist. Radiation optimization: All CT scans at this facility use at least one of these dose optimization techniques: automated exposure control; mA and/or kV adjustment per patient size (includes targeted exams where dose is matched to clinical indication); or iterative reconstruction. Contrast material: ISOUVE 370; Contrast volume: 70 ml; Contrast route: INTRAVENOUS (IV); COMPARISON: CR XR CHEST 2V 08/29/2023 10:13 PM FINDINGS: Pulmonary arteries: There are extensive bilateral pulmonary emboli including lobar right upper, middle, and lower lobe pulmonary emboli in segmental left upper lobe pulmonary emboli. Aorta: Unremarkable. No aortic aneurysm. No aortic dissection. Lungs: Extensive areas of ground-glass may reflect air trapping or inflammation. Pleural spaces: Unremarkable. No pneumothorax. No pleural effusion. Heart: The heart is enlarged. Heart RV/LV ratio: RV to LV ratio is mildly increased at 1.3. Coronary arteries: There is mild coronary atherosclerotic disease/calcification although evaluation is limited secondary to the non gated nature of the study. Lymph nodes: There are mildly prominent mediastinal lymph nodes which are nonenlarged. Gallbladder and bile ducts: The patient is status post cholecystectomy. Bones/joints: Unremarkable. No acute fracture. Soft tissues: There is bilateral gynecomastia. IMPRESSION: Extensive bilateral pulmonary emboli with elevated RV to LV ratio, correlate for right heart strain.
[2023-08-29 23:15] VITALS: BP 124/83; PULSE 98; RESP 24; O2SAT 91
[2023-08-29] MEDS: FUROSEMIDE 40MG/4ML VIAL 40 MG IV (23:16)
[2023-08-29 23:30] VITALS: BP 98/72; PULSE 97; RESP 23; O2SAT 89
[2023-08-30] VITALS (38 sets, daily range): BP systolic 96–168; BP diastolic 52–95; PULSE 70–111; RESP 14–24; TEMP 36.6–37.1; O2SAT 89–100
[2023-08-30 00:07] LABS: Microscopic, Urine URINE MICROSCOPIC (MICROSCOPIC)
[2023-08-30 00:09] LABS: Appearance,Urine CLEAR (Clear); Bilirubin,Urine Negative (Negative); Blood, Urine TRACE-I (Negative); Color,Urine YELLOW (Yellow); Glucose,Urine (UA) 3+ (Negative); Ketones,Urine Negative (Negative); Leukocyte Esterase,Urine Negative (Negative); Nitrate,Urine Negative (Negative); PH,Urine 5.5 (5.0-8.5); Protein,Urine Negative (Negative); Specific Gravity, Urine 1.015 (1.005-1.030); Urobilinogen,Urine 0.2 EU/dl (0.2)
--- NOTE | 2023-08-30 00:10 | PC.NURSE ---
paged dr ravi for dr nguyễn
[2023-08-30] MEDS: IOPAMIDOL-370 (76%);100ML BOTTLE 70 ML IV (00:13)
[2023-08-30] MEDS: SODIUM CHLORIDE 0.9% 10ML SYR (RAD ONLY) 10 ML IV (00:13)
[2023-08-30] MEDS: 0.9 % SODIUM CHLORIDE 50 ML VIAL IV (00:13)
--- NOTE | 2023-08-30 00:16 | PC.NURSE ---
500 ml of urine out per bhupendra tech
[2023-08-30 00:19] LABS: RBC,Urine Occasional #/hpf (0-3); Squamous Epithelial Cell,Urine Occasional #/hpf (0-5)
--- NOTE | 2023-08-30 00:24 | EXP.HP ---
History of Present Illness *Admission Date: 08/30/23 *Reason for visit:: SOB and cough *History of present illness: This is a 68 Yo M PMHx of IDDM, HTN, HLD, CHF presented to ED for evaluation of 30 days of progressive dyspnea and bilateral lower extremity swelling. Patient initially went to PCP and was diagnosed with an upper respiratory tract infection prescribed antibiotics however his dyspnea on exertion did not improve and continued to worsen. Patient is now reported that he is dyspneic even with light exertion and sometimes even at rest. Patient however denies chest pain fever chills hemoptysis hematochezia melena nausea vomit diarrhea or productive cough. Admitted for treatment and management. [facility] Disclaimer: The information contained in this section may have been updated after the patient was seen, as this information can be updated by other users. Medical History (Updated 08/30/23 @ 06:49 by Reji Chun APRN) History of prostate cancer Cataract FH: cholecystectomy Prostate cancer Hyperlipidemia Hypertension Diabetes mellitus Surgical History H/O circumcision History of appendectomy H/O knee surgery Family History Mother Stroke Father Stroke Social History Smoking Status: Unknown if ever smoked second hand exposure: No alcohol intake: never current occupational status: retired Travel in the last 8 weeks: None household members: spouse housing: house marital status: Review of Systems Review of Systems Review of systems:: pertinent systems reviewed and negative unless documented below Meds Home Medications and Allergies Home Medications Medication Instructions Recorded Confirmed Type pen needle, diabetic 31 gauge x #100 ea 05/04/22 08/27/23 Rx 5/16 (BD Ultra-Fine Short Pen Needle) blood sugar diagnostic (Accu-Chek #100 ea 07/02/22 08/27/23 Rx Ashly Plus test strips) atorvastatin 40 mg tablet 40 mg PO DAILY #90 tabs 11/26/22 08/27/23 Rx bisoprolol fumarate 5 mg tablet 5 mg PO DAILY #90 tabs 11/26/22 08/27/23 Rx fenofibrate 160 mg tablet 160 mg PO DAILY #90 tabs 11/26/22 08/27/23 Rx lisinopril 10 See Rx Instructions .Route 11/26/22 08/27/23 Rx mg-hydrochlorothiazide 12.5 mg .COMPLEX #90 tabs tablet metformin 500 mg tablet 500 mg PO BID 90 days #180 tabs 11/26/22 08/27/23 Rx omeprazole 20 mg capsule,delayed 20 mg PO DAILY 90 days #90 caps 11/26/22 08/27/23 Rx release insulin NPH-regular 70-30 U-100 50 unit (0.5 mL) SQ BID 90 days 11/27/22 08/27/23 Rx insulin 100 unit/mL subcutaneous #90 mL pen (Novolin 70-30 FlexPen U-100 Insulin) pen needle, diabetic 32 gauge x #100 ea 05/24/23 08/27/23 Rx / (Droplet Pen Needle) codeine 10 mg-guaifenesin 100 mg/5 10 ml PO Q6H PRN cough #120 mL 08/27/23 08/27/23 Rx mL oral liquid New Prescriptions to Start Prescriptions: Allergies Allergy/AdvReac Type Severity Reaction Status Date / Time acetaminophen [From Lortab] Allergy Verified 08/27/23 09:00 hydrocodone [From Lortab] Allergy Verified 08/27/23 09:00 Exam Data for Last 24 hours Vital signs and Labs for Last 24 Hours: Temp Pulse Resp BP Pulse Ox O2 Del Method 98.2 F 111 H 23 98/72 L 89 L Room Air 08/29/23 22:18 08/30/23 00:10 08/29/23 23:30 08/29/23 23:30 08/30/23 00:10 08/29/23 22:18 Laboratory Results - last 24 hr 08/29/23 22:34: WBC 10.7, RBC 4.50 L, Hgb 16.0, Hct 43.2, MCV 96.0 H, MCH 35.5 H, MCHC 36.9 H, RDW 14.0, Plt Count 113 L, MPV 9.0, Neut % (Auto) 72.4, Lymph % (Auto) 18.0, [place] % (Auto) 7.3, Eos % (Auto) 1.6, Baso % (Auto) 0.7, Neut # (Auto) 7.7, Lymph # (Auto) 1.9, [place] # (Auto) 0.8, Eos # (Auto) 0.2, Baso # (Auto) 0.1, PT 11.8, INR 1.10, D-Dimer 6.43 H, Sodium 135 L, Potassium 4.1, Chloride 99, Carbon Dioxide 26, Anion Gap 14.1, BUN 26 H, Creatinine 1.20, Estimated Creat Clear 59, Estimated GFR 60, Est GFR ( Amer) 73, Glucose 372 H, Calcium 9.6, Magnesium 1.5 L, Total Bilirubin 0.7, AST 99 H, ALT 162 H, Alkaline Phosphatase 105, Troponin I 0.12 H, NT-Pro-B Natriuret Pep 4530 H, Total Protein 6.7, Albumin 3.9, Globulin 2.8, Albumin/Globulin Ratio 1.4 08/30/23 00:00: Urine Color Yellow, Urine Appearance Clear, Urine pH 5.5, Ur Specific [place] 1.015, Urine Protein Negative, Urine Glucose (UA) 3+, Urine Ketones Negative, Urine Blood Trace-i, Urine Nitrate Negative, Urine Bilirubin Negative, Urine Urobilinogen 0.2, Ur Leukocyte Esterase Negative, Urine RBC Occasional, Urine WBC None, Ur Squamous Epith Cells Occasional, Urine Bacteria None I & O for Last 24 hours: Intake & Output 08/27/23 08/28/23 08/29/23 08/30/23 23:59 23:59 23:59 23:59 Output Total 1000 / 1000 Balance -1000 / -1000 Weight 133.356 kg Constitutional Constitutional: mild distress, morbidly obese and chronically ill appearing *Routine HEENT Exam Head: Present normocephalic Eye: Present EOMI and PERRL ENT: Present mucous membranes moist *Routine Neck Exam Neck: Present supple; Absent lymphadenopathy *Routine Respiratory Exam Respiratory: Present CTA bilaterally, distant breath sounds and diminished air movement; Absent respiratory distress *Routine Cardiovascular Exam Cardiovascular: Present RRR *Routine Abdominal Exam Abdominal: Present soft and normoactive bowel sounds; Absent tenderness *Routine Rectal Exam Rectal:: deferred *Routine Genitalia Exam Genitalia:: deferred *Routine Extremities Exam Extremities: Absent cyanosis, clubbing or edema *Routine Skin Exam Skin: Present warm; Absent rash *Routine Neurological Exam Neurological: Present alert and oriented X3 Assessment and Plan *Assessment and plan (1) Pulmonary embolism with acute cor pulmonale: Status: Acute Qualifiers: Chronicity: acute Pulmonary embolism type: other Qualified Code(s): I26.09 - Other pulmonary embolism with acute cor pulmonale Category: Medical Code(s): I26.09 - Other pulmonary embolism with acute cor pulmonale (2) Hypertension: Status: Acute Qualifiers: Hypertension type: unspecified Qualified Code(s): I10 - Essential (primary) hypertension Category: Medical Code(s): I10 - Essential (primary) hypertension (3) DM2 (diabetes mellitus, type 2): Status: Acute Qualifiers: Diabetes mellitus terminal system operator insulin use: with correction use Diabetes mellitus complication status: with other specified complication Qualified Code(s): E11.69 - Type 2 diabetes mellitus with other specified complication; Z79.4 - terminal press operator (current) use of insulin Category: Medical Code(s): E11.9 - Type 2 diabetes mellitus without complications (4) Hyperlipidemia: Status: Acute Qualifiers: Hyperlipidemia type: unspecified Qualified Code(s): E78.5 - Hyperlipidemia, unspecified Category: Medical Code(s): E78.5 - Hyperlipidemia, unspecified (5) GERD (gastroesophageal reflux disease): Status: Acute Qualifiers: Esophagitis presence: esophagitis presence not specified Qualified Code(s): K21.9 - Gastro-esophageal reflux disease without esophagitis Category: Medical Code(s): K21.9 - Gastro-esophageal reflux disease without esophagitis Plan 68 Yo M PMHx of IDDM, HTN, HLD, CHF presented to ED for evaluation of 30 days of progressive dyspnea and bilateral lower extremity swelling. Patient is normotensive slightly elevated heart rate but afebrile satting at greater than 94% on room air currently upon arrival, Physical exam is remarkable for 3+ bilateral dependent edema. Breath sounds are clear and equal bilaterally may be slightly diminished at the right base with no adventitious sounds. D-dimer returns markedly elevated. Initial troponin elevated at 0.12. CT PE showed extensive right-sided and some left-sided pulmonary embolism including the right upper right middle and right lower lobe segmental PE with considerable right heart strain. Patient was initiated on 1 mg/kg of Lovenox. Interactive discussion was had with cardiology on-call who recommends admission and reevaluation in the morning for possible thrombectoInitial interventions include Lasix 40 mg IV push. Medicine agreed for admission. Plan as follow: - Acute PE with cor pulmonale: admit patient for medical services. hemodinamically stable. on 2L NC Cardiology consult started on full dose lovenox IVP lasix given. further diuresis optimization deferred to cardiology monitor for low sat. and VS per unit on continues cardiac monitoring strict i/Os repeat ;lab -IDDM with hyperglycemi. suspected no well controlled resume home insulin on SSL accucheck -HTN/HLD nursing to resume home meds Hold BP meds if hypotensive. on Protonix for GERD full code
[2023-08-30] MEDS: ENOXAPARIN 100MG/ML SYRINGE 135 MG SQ (00:28)
--- NOTE | 2023-08-30 00:45 | PC.NURSE ---
BOARDING IN ED AT THIS TIME. OBTAINED BED FROM 2ND FLOOR FOR EVENING FOR PATIENT. VSS.
[2023-08-30 02:20] LABS: Troponin I 0.12 ng/ml (0.00-0.034)
--- NOTE | 2023-08-30 03:01 | PC.NURSE ---
rounded on pt and pt voices no needs
--- NOTE | 2023-08-30 04:13 | PC.NURSE ---
rounded on pt at this time. Pt asleep in bed. VS BP-99/65, HR-85 O2-94% on 2L NC, RR20
--- NOTE | 2023-08-30 05:50 | PC.NURSE ---
rounded on patient, patient sleeping call light within reach
[2023-08-30] MEDS: humaLOG 100 UNITS/ML 3ML VIAL (SSI) SQ ×2 (06:01→20:33)
--- NOTE | 2023-08-30 06:13 | PC.NURSE ---
bed available on 2nd floor. report called to juani haas rn
[2023-08-30 07:29] LABS: Basophils # 0.1 K/mm3 (0-0.2); Basophils % 0.7 % (0.1-2.0); Eosinophils # 0.1 K/mm3 (0.0-0.4); Eosinophils % 1.6 % (0.1-12.0); Hematocrit 47.3 % (42.0-52.0); Hemoglobin 15.7 g/dL (14.1-18.0); Lymphocytes # 2.1 K/mm3 (0.7-4.5); Lymphocytes % 23.9 % (10-50); Mean Corpuscular HGB Conc 33.1 g/dL (31.8-35.4); Mean Corpuscular Hemoglobin 31.4 pg (27.0-31.2); Mean Corpuscular Volume 94.7 fl (80-94); Mean Platelet Volume 9.3 fl (7.4-10.4); Monocytes # 0.8 K/mm3 (0.1-1.0); Monocytes % 9.2 % (1.7-9.3); Neutrophils # 5.6 K/mm3 (1.8-7.8); Neutrophils % 64.6 % (37.0-80.0); Platelet Count 132 K/mm3 (142-424); White Blood Count 8.6 K/mm3 (4.8-10.8)
[2023-08-30 07:40] LABS: Alanine Aminotransferase 134 U/L (12-78); Albumin Level 3.7 g/dl (3.5-5.0); Albumin/Globulin Ratio 1.3 (1.1-1.8); Alkaline Phosphatase 92 U/L (38-126); Aspartate Amino Transferase 59 U/L (17-59); Bilirubin,Total 0.9 mg/dl (0.2-1.3); Calcium 9.5 mg/dl (8.4-10.2); Chloride 100 mmol/L (98-107); Globulin 2.9 g/dL (1.3-3.2); Glucose 257 mg/dl (74-100); Magnesium 1.5 mg/dl (1.6-2.3); Potassium 3.9 mmoL/L (3.5-5.1); Sodium 137 mmol/L (136-145); Total Protein,Serum 6.6 g/dl (6.3-8.2)
[2023-08-30 07:41] LABS: Anion Gap 12.9 mEq/L (5-15); Blood Urea Nitrogen 23 mg/dl (9-20); Carbon Dioxide 28 mmol/L (22.0-30.0); Creatinine Clearance Estimated 64 mL/min (50-200); Estimated Glomerular Filt Rate 67 ml/min (>60); GFR (African American) 81 ML/MIN (>60)
--- NOTE | 2023-08-30 07:47 | CA_ITS ---
APPROVED REPORT EXAM: Comprehensive 2D, Doppler, and color-flow Echocardiogram Chute Loader: Ayah Stark RDCS Ht: 5 ft 9 in Wt: 294lbs BSA: 2.43 BP: 98/72 mmHg Indications: KIESHA PE,PEPPER,MARLYS,HTN,HLP,DM M-Mode Dimensions RVDd 3.48 cm (0.9-2.6) LA Diam 2.47 cm (1.9-4.0) LVDd 4.53 cm (3.5-5.7) LVDs 3.65 cm (3.5-5.7) IVSd 1.08 cm (0.6-1.1) PWd 1.08 cm (0.6-1.1) EF (Teich) 40.00% FS 19.40% EDV (Teich) 93.90 mL TAPSE 1.79 (<1.7) ESV (Teich) 56.30 mL LV Diastology E Decel Time 250 (160-240 msec) E/A Ratio 0.6 Mitral Valve MV E Max Daryn. 50.0 (40-130 cm/s) MV A Velocity 79.0 (40-130 cm/s) E/A Ratio 0.64 MV PHT 73.0 ms Left Ventricle The left ventricle is normal size. The left ventricular systolic function is normal. The left ventricular ejection fraction is within the normal range. There is increased LV wall thickness. There is normal LV segmental wall motion. The left ventricular diastolic function is normal. LVEF is 60%. Right Ventricle The right ventricle is severely dilated. Right ventricular systolic function is moderately to severely reduced. Atria The left atrium size is normal. Right atrium is moderately dilated. There is no Doppler evidence of interatrial shunt. Aortic Valve The aortic valve is mildly thickened. There is no aortic valvular stenosis. Trace aortic regurgitation. Mitral Valve The mitral valve leaflets are mildly thickened. No evidence of mitral valve stenosis. Trace mitral regurgitation. Tricuspid Valve The tricuspid valve leaflets are thin and pliable. Trace tricuspid regurgitation. RVSP is 27 mmHg + RA pressure. Pulmonic Valve The pulmonary valve is grossly normal in structure. Trace pulmonic regurgitation. Great Vessels The aortic root is normal in size. The ascending aorta is not well-visualized. The IVC is not well-visualized. Pericardium There is no pericardial effusion. Other Information Study Quality: Fair Conclusion Normal LV systolic function. Severely dilated RV with moderate to severe reduction in RV function. No significant valvular stenosis or regurgitation. RVSP is 27 mmHg + RA pressure. Electronically signed by : Esha Remy MD 08/30/2023 13:06:18
--- OUTSIDE RECORDS SUMMARY | 2023-08-30 07:53 | XMS_ITS ---
Author Name Dorian Lizarraga Address [address] [place] [id number] Organization Unknown Address [address] [place] [id number] ALLERGIES AND ADVERSE REACTIONS No information ASSESSMENT No information CHIEF COMPLAINT No information MEDICATIONS No information OBJECTIVE DATA No information PHYSICAL EXAMINATION No information TREATMENT PLAN Planned Care Start Date Provider Encounter for Check-up [phone] [facility] PROBLEMS No information RESULTS No information REVIEW OF SYSTEMS No information SUBJECTIVE DATA No information VITAL SIGNS No information
[2023-08-30] MEDS: PANTOPRAZOLE 40MG TABLET 40 MG PO (09:34)
--- NOTE | 2023-08-30 10:18 | PC.NURSE ---
c/o sweating, notified nurse
--- NOTE | 2023-08-30 10:48 | EXP.CARD.CON ---
History of Present Illness History of Present Illness Consult date: 08/30/23 Requesting physician: Lul Huynh Consult reason: shortness of breath Chief complaint: Pulmonary emboli Additional Medical History:: 1. Obesity 2. Hypertension 3. Hyperlipidemia 4. History of prostate cancer status post radiation therapy 6. Diabetes mellitus, treated for at least 10 years 7. Bilateral pulmonary emboli, 08/2023 History of present illness: This is a 68 Yo M PMHx of IDDM, HTN, HLD, CHF presented to ED for evaluation of 30 days of progressive dyspnea and bilateral lower extremity swelling. Patient initially went to PCP and was diagnosed with an upper respiratory tract infection prescribed antibiotics however his dyspnea on exertion did not improve and continued to worsen. Patient is now reported that he is dyspneic even with light exertion and sometimes even at rest. Patient however denies chest pain fever chills hemoptysis hematochezia melena nausea vomit diarrhea or productive cough. Admitted for treatment and management. The above per Reji Chun APRN for the hospitalist service. Events as noted above confirmed with the patient. No recent history of trauma or prolonged inactivity. He does have a history of prostate cancer that was treated with radiation therapy in the last 2 years. CTA of the chest this admission shows an RV/LV index of 1.3 with echocardiogram showing evidence of RV strain with reduced RV function. Patient has received Lovenox overnight. He continues to have exertional shortness of breath up to the time of admission. [facility] Disclaimer: The information contained in this section may have been updated after the patient was seen, as this information can be updated by other users. Medical History (Updated 08/30/23 @ 06:49 by Reji Chun APRN) History of prostate cancer Cataract FH: cholecystectomy Prostate cancer Hyperlipidemia Hypertension Diabetes mellitus Surgical History H/O circumcision History of appendectomy H/O knee surgery Family History Mother Stroke Father Stroke Social History (Updated 08/30/23 @ 06:53 by Ligia Swenson RN) Smoking Status: Unknown if ever smoked second hand exposure: No alcohol intake: never current occupational status: retired Travel in the last 8 weeks: None household members: spouse housing: house marital status: Review of Systems Review of Systems Review of systems:: pertinent systems reviewed and negative unless documented below *Cardiovascular Cardiovascular: Denies chest pain, Reports dyspnea and Reports dyspnea on exertion *Respiratory Respiratory: Reports cough, Reports dyspnea and Reports dyspnea on exertion Exam Data for Last 24 hours Vital signs and Labs for Last 24 Hours: Temp Pulse Resp BP Pulse Ox O2 Del Method O2 Flow Rate 98.8 F 90 22 117/81 91 L Room Air 2 08/30/23 07:45 08/30/23 07:45 08/30/23 07:45 08/30/23 07:45 08/30/23 07:45 08/30/23 07:45 08/30/23 06:36 Laboratory Results - last 24 hr 08/29/23 22:34: WBC 10.7, RBC 4.50 L, Hgb 16.0, Hct 43.2, MCV 96.0 H, MCH 35.5 H, MCHC 36.9 H, RDW 14.0, Plt Count 113 L, MPV 9.0, Neut % (Auto) 72.4, Lymph % (Auto) 18.0, [place] % (Auto) 7.3, Eos % (Auto) 1.6, Baso % (Auto) 0.7, Neut # (Auto) 7.7, Lymph # (Auto) 1.9, [place] # (Auto) 0.8, Eos # (Auto) 0.2, Baso # (Auto) 0.1, PT 11.8, INR 1.10, D-Dimer 6.43 H, Sodium 135 L, Potassium 4.1, Chloride 99, Carbon Dioxide 26, Anion Gap 14.1, BUN 26 H, Creatinine 1.20, Estimated Creat Clear 59, Estimated GFR 60, Est GFR ( Amer) 73, Glucose 372 H, Calcium 9.6, Magnesium 1.5 L, Total Bilirubin 0.7, AST 99 H, ALT 162 H, Alkaline Phosphatase 105, Troponin I 0.12 H, NT-Pro-B Natriuret Pep 4530 H, Total Protein 6.7, Albumin 3.9, Globulin 2.8, Albumin/Globulin Ratio 1.4 08/30/23 00:00: Urine Color Yellow, Urine Appearance Clear, Urine pH 5.5, Ur Specific [place] 1.015, Urine Protein Negative, Urine Glucose (UA) 3+, Urine Ketones Negative, Urine Blood Trace-i, Urine Nitrate Negative, Urine Bilirubin Negative, Urine Urobilinogen 0.2, Ur Leukocyte Esterase Negative, Urine RBC Occasional, Urine WBC None, Ur Squamous Epith Cells Occasional, Urine Bacteria None 08/30/23 00:50: Troponin I 0.12 H 08/30/23 07:06: WBC 8.6, RBC 5.00, Hgb 15.7, Hct 47.3, MCV 94.7 H, MCH 31.4 H, MCHC 33.1, RDW 14.0, Plt Count 132 L, MPV 9.3, Neut % (Auto) 64.6, Lymph % (Auto) 23.9, [place] % (Auto) 9.2, Eos % (Auto) 1.6, Baso % (Auto) 0.7, Neut # (Auto) 5.6, Lymph # (Auto) 2.1, [place] # (Auto) 0.8, Eos # (Auto) 0.1, Baso # (Auto) 0.1, Sodium 137, Potassium 3.9, Chloride 100, Carbon Dioxide 28, Anion Gap 12.9, BUN 23 H, Creatinine 1.10, Estimated Creat Clear 64, Estimated GFR 67, Est GFR ( Amer) 81, Glucose 257 H D, Calcium 9.5, Magnesium 1.5 L, Total Bilirubin 0.9, AST 59 D, ALT 134 H, Alkaline Phosphatase 92, Total Protein 6.6, Albumin 3.7, Globulin 2.9, Albumin/Globulin Ratio 1.3 I & O for Last 24 hours: Intake & Output 08/27/23 08/28/23 08/29/23 08/30/23 11:59 11:59 11:59 11:59 Intake Total 0 / 0 Output Total 2650 / 2650 Balance -2650 / -2650 Weight 294 lb Constitutional Constitutional: no acute distress *Routine Respiratory Exam Respiratory: Present diminished air movement; Absent wheezes *Routine Cardiovascular Exam Cardiovascular: Present RRR and murmur; Absent gallop or rubs *Routine Extremities Exam Extremities: Present edema *Routine Neurological Exam Neurological: Present alert, oriented X3 and CN II-XII intact Meds Home Medications and Allergies Home Medications Medication Instructions Recorded Confirmed Type pen needle, diabetic 31 gauge x #100 ea 05/04/22 08/30/23 Rx 5/16 (BD Ultra-Fine Short Pen Needle) blood sugar diagnostic (Accu-Chek #100 ea 07/02/22 08/30/23 Rx Ashly Plus test strips) atorvastatin 40 mg tablet 40 mg PO DAILY #90 tabs 11/26/22 08/30/23 Rx bisoprolol fumarate 5 mg tablet 5 mg PO DAILY #90 tabs 11/26/22 08/30/23 Rx fenofibrate 160 mg tablet 160 mg PO DAILY #90 tabs 11/26/22 08/30/23 Rx metformin 500 mg tablet 500 mg PO BID 90 days #180 tabs 11/26/22 08/30/23 Rx omeprazole 20 mg capsule,delayed 20 mg PO DAILY 90 days #90 caps 11/26/22 08/30/23 Rx release pen needle, diabetic 32 gauge x #100 ea 05/24/23 08/30/23 Rx (Droplet Pen Needle) codeine 10 mg-guaifenesin 100 mg/5 10 ml PO Q6HP PRN Cough 08/30/23 08/30/23 History mL oral liquid insulin NPH-regular 70-30 U-100 50 unit SQ BID 08/30/23 08/30/23 History insulin 100 unit/mL subcutaneous pen (Novolin 70-30 FlexPen U-100 Insulin) lisinopril 10 1 tab PO DAILY 08/30/23 08/30/23 History mg-hydrochlorothiazide 12.5 mg tablet New Prescriptions to Start Prescriptions: Allergies Allergy/AdvReac Type Severity Reaction Status Date / Time acetaminophen [From Lortab] Allergy Verified 08/27/23 09:00 hydrocodone [From Lortab] Allergy Verified 08/27/23 09:00 Assessment and Plan *Assessment and plan (1) Pulmonary embolism with acute cor pulmonale: Status: Acute Qualifiers: Chronicity: acute Pulmonary embolism type: other Qualified Code(s): I26.09 - Other pulmonary embolism with acute cor pulmonale Category: Medical Code(s): I26.09 - Other pulmonary embolism with acute cor pulmonale (2) DM2 (diabetes mellitus, type 2): Status: Acute Qualifiers: Diabetes mellitus complication status: with other specified complication Diabetes mellitus [facility] insulin use: with medical terminologist use Qualified Code(s): E11.69 - Type 2 diabetes mellitus with other specified complication; Z79.4 - FDC (current) use of insulin Category: Medical Code(s): E11.9 - Type 2 diabetes mellitus without complications (3) Hypertension: Status: Acute Qualifiers: Hypertension type: unspecified Qualified Code(s): I10 - Essential (primary) hypertension Category: Medical Code(s): I10 - Essential (primary) hypertension (4) Hyperlipidemia: Status: Acute Qualifiers: Hyperlipidemia type: unspecified Qualified Code(s): E78.5 - Hyperlipidemia, unspecified Category: Medical Code(s): E78.5 - Hyperlipidemia, unspecified (5) History of prostate cancer: Status: Acute Category: Medical Code(s): Z85.46 - Personal history of malignant neoplasm of prostate Plan 1. Bilateral pulmonary emboli -On Lovenox -Due to RV strain and reduced RV function along with significant symptoms, recommend pulmonary embolectomy 2. Diabetes mellitus -Hemoglobin A1c 9.6 3. Elevated troponins likely secondary to RV strain from pulmonary embolus 4. Hyperlipidemia 5. Hypertension 6. History of prostate cancer status post radiation therapy Right heart catheterization with pulmonary embolectomy today Consider outpatient Heme/Onc evaluation with history of prostate cancer.
--- NOTE | 2023-08-30 10:52 | IR_ITS ---
APPROVED REPORT Patient Location: Inpatient Paradichlorobenzene Tender: JIM Camargo RT (R) PROCEDURES Right femoral vein access Catheter placed in the right main pulmonary artery Right main pulmonary artery selective angiogram Catheter placement in the left main pulmonary artery Left main pulmonary artery selective angiogram Mechanical thrombectomy to the right main pulmonary artery, right upper, right middle lobe, and right lower lobe segmental branches Right heart catheterization INDICATION Submassive pulmonary embolism, Acute right heart failure Informed consent was obtained prior to the procedure. COMPLICATIONS NONE Estimated Blood Loss: LESS THAN 10 ML TECHNIQUE 1% lidocaine used anesthetize right groin the right femoral vein was accessed via the center technique and a 6 Setswana sheath was placed in right femoral vein. This was upsized to an 811 and then 16 femoral sheath. An angled pigtail catheter was used to cannulate the right main pulmonary artery and selective angiography was performed. This demonstrated large distal thrombus burden. The same catheter was placed into the left pulmonary artery and repeat angiography was performed. This demonstrated clot distally in the left lower lobe. At this point therapeutic heparin was administered and the flash 2.0 catheter was advanced into the right main pulmonary artery with large thrombus being extracted. The catheter was placed into the lower middle and superior segmental branches also aspirating large thrombus. Initial pulmonary artery systolic pressure measured at 55 mmHg. After achieving excellent angiographic results repeat angiography was performed the apparatus was removed the sheath was removed and hemostasis was achieved using manual pressure and the stitching patient was transferred to postop putting in stable condition ANGIOGRAPHIC RESULTS Main pulmonary artery widely patent Distal right pulmonary artery is heavily thrombosed with extensive thrombus in the upper middle and lower lobe segmental branches Left pulmonary artery is proximally patent with thrombus identified in the lower distal segmental branch IMPRESSION Bilateral pulmonary emboli as described above Successful mechanical thrombectomy to the right upper middle and lower segmental branches removing large thrombus burden PLAN 1. Continue Lovenox for now and then convert to Xarelto 15 mg twice daily for 3 weeks then 20 mg a day thereafter 2. Workup for etiology of PE 3. Supportive care Electronically signed by : Andrey Owens MD 08/31/2023 13:36:05
--- NOTE | 2023-08-30 11:04 | HMH.PHAINT1 ---
Pharmacy Intervention Comments: MEDICATION RECONCILIATION COMPLETED ON PATIENT USING EXTERNAL FILL HISTORY FROM PHARMACY AND LIST FROM PCP OFFICE. -LINDSAY MACIAS, BRITTNEYD
[2023-08-30 12:05] LABS: Troponin I 0.11 ng/ml (0.00-0.034)
[2023-08-30] MEDS: diphenhydrAMINE 50MG/ML VIAL 50 MG IV (13:37)
[2023-08-30] MEDS: LIDOCAINE 1% 10ML MDV 20 ML IJ (13:38)
[2023-08-30] MEDS: MIDAZOLAM HCL 1MG/1ML 5ML VIAL 1 MG IV (13:42)
[2023-08-30] MEDS: FENTANYL 100MCG/2ML VIAL 25 MCG IV (13:43)
[2023-08-30] MEDS: HEPARIN 1,000 UNITS/ML 10ML VIAL (CATH LAB) 10000 UNIT IV (13:56)
--- NOTE | 2023-08-30 13:57 | PC.NURSE ---
1313: pt off floor to clinical laboratory manager for scheduled heart cath and embolectomy
--- NOTE | 2023-08-30 15:24 | PC.NURSE ---
Report received from Charlie DHILLON in feed mill lab technician. Pt had emboli removed from right lung with a 16f venous sheath. There is a z stitch in place that can be removed at 5pm. Vital signs are as follows 134/83, hr 80, 97% o2 on 2L NC, NSR on tele.
[2023-08-30] MEDS: IOPAMIDOL-370 (76%);100ML BOTTLE 250 ML IV (15:44)
--- NOTE | 2023-08-30 17:27 | PC.NURSE ---
Pt returned from his heart cath and embolectomy at 1540 this afternoon. Upon arrival his groin site was noted to be actively bleeding. Pressure was applied to the right groin by Kj DHILLON, linen room houseperson for 15min. The site was redressed and a sandbag applied. All subsequent frequent checks have been unremarkable. Site remains cdi with sandbag in place. Pt arrived with a z stitch and this is to be removed at 1800. He is currently lying flat in bed. Vital signs remain stable as charted.
[2023-08-30] MEDS: RIVAROXABAN 15MG TABLET 15 MG PO (18:03)
--- NOTE | 2023-08-30 18:03 | P.PN_ITS ---
Subjective *Date: 08/30/23 *Time: 18:03 Interval history: patient is seen at bedside, cydneyd CP,SOB, N/V Exam Data for Last 24 hours Vital signs and Labs for Last 24 Hours: Temp Pulse Resp BP Pulse Ox O2 Del Method O2 Flow Rate 97.9 F 88 18 118/78 97 Nasal Cannula 2 08/30/23 15:55 08/30/23 17:25 08/30/23 17:25 08/30/23 17:25 08/30/23 17:25 08/30/23 17:25 08/30/23 17:25 Laboratory Results - last 24 hr 08/29/23 22:34: WBC 10.7, RBC 4.50 L, Hgb 16.0, Hct 43.2, MCV 96.0 H, MCH 35.5 H , MCHC 36.9 H, RDW 14.0, Plt Count 113 L, MPV 9.0, Neut % (Auto) 72.4, Lymph % (Auto) 18.0, [place] % (Auto) 7.3, Eos % (Auto) 1.6, Baso % (Auto) 0.7, Neut # (Auto) 7.7, Lymph # (Auto) 1.9, [place] # (Auto) 0.8, Eos # (Auto) 0.2, Baso # (Auto) 0.1, PT 11.8, INR 1.10, D-Dimer 6.43 H, Sodium 135 L, Potassium 4.1, Chloride 99, Carbon Dioxide 26, Anion Gap 14.1, BUN 26 H, Creatinine 1.20, Estimated Creat Clear 59, Estimated GFR 60, Est GFR ( Amer) 73, Glucose 372 H, Calcium 9.6, Magnesium 1.5 L, Total Bilirubin 0.7, AST 99 H, ALT 162 H, Alkaline Phosphatase 105, Troponin I 0.12 H, NT-Pro-B Natriuret Pep 4530 H, Total Protein 6.7, Albumin 3.9, Globulin 2.8, Albumin/Globulin Ratio 1.4 08/30/23 00:00: Urine Color Yellow, Urine Appearance Clear, Urine pH 5.5, Ur Specific [place] 1.015, Urine Protein Negative, Urine Glucose (UA) 3+, Urine Ketones Negative, Urine Blood Trace-i, Urine Nitrate Negative, Urine Bilirubin Negative, Urine Urobilinogen 0.2, Ur Leukocyte Esterase Negative, Urine RBC Occasional, Urine WBC None, Ur Squamous Epith Cells Occasional, Urine Bacteria None 08/30/23 00:50: Troponin I 0.12 H 08/30/23 07:06: WBC 8.6, RBC 5.00, Hgb 15.7, Hct 47.3, MCV 94.7 H, MCH 31.4 H, MCHC 33.1, RDW 14.0, Plt Count 132 L, MPV 9.3, Neut % (Auto) 64.6, Lymph % (Auto) 23.9, [place] % (Auto) 9.2, Eos % (Auto) 1.6, Baso % (Auto) 0.7, Neut # (Auto) 5.6, Lymph # (Auto) 2.1, [place] # (Auto) 0.8, Eos # (Auto) 0.1, Baso # (Auto) 0.1, Sodium 137, Potassium 3.9, Chloride 100, Carbon Dioxide 28, Anion Gap 12.9, BUN 23 H, Creatinine 1.10, Estimated Creat Clear 64, Estimated GFR 67, Est GFR ( Amer) 81, Glucose 257 H D, Calcium 9.5, Magnesium 1.5 L, Total Bilirubin 0.9, AST 59 D, ALT 134 H, Alkaline Phosphatase 92, Troponin I 0.11 H, Total Protein 6.6, Albumin 3.7, Globulin 2.9, Albumin/Globulin Ratio 1.3 I & O for Last 24 hours: Intake & Output 08/27/23 08/28/23 08/29/23 08/30/23 23:59 23:59 23:59 23:59 Intake Total 0 / 0 Output Total 3450 / 3450 Balance -3450 / -3450 Weight 133.356 kg Constitutional Constitutional: no acute distress *Routine HEENT Exam Head: Present normocephalic Eye: Present EOMI and PERRL ENT: Present mucous membranes moist *Routine Neck Exam Neck: Present supple; Absent lymphadenopathy *Routine Respiratory Exam Respiratory: Present CTA bilaterally *Routine Cardiovascular Exam Cardiovascular: Present RRR *Routine Abdominal Exam Abdominal: Present soft and normoactive bowel sounds; Absent tenderness *Routine Extremities Exam Extremities: Absent cyanosis, clubbing or edema *Routine Skin Exam Skin: Present warm; Absent rash *Routine Neurological Exam Neurological: Present alert and oriented X3 Assessment and Plan *Assessment and plan (1) Pulmonary embolism with acute cor pulmonale: Status: Acute Qualifiers: Chronicity: acute Pulmonary embolism type: other Qualified Code(s): I26.09 - Other pulmonary embolism with acute cor pulmonale Category: Medical Code(s): I26.09 - Other pulmonary embolism with acute cor pulmonale (2) Hypertension: Status: Acute Qualifiers: Hypertension type: unspecified Qualified Code(s): I10 - Essential (primary) hypertension Category: Medical Code(s): I10 - Essential (primary) hypertension (3) DM2 (diabetes mellitus, type 2): Status: Acute Qualifiers: Diabetes mellitus assisted insulin use: with assisted use Diabetes mellitus complication status: with other specified complication Qualified Code(s): E11.69 - Type 2 diabetes mellitus with other specified complication; Z79.4 - bed bug exterminator (current) use of insulin Category: Medical Code(s): E11.9 - Type 2 diabetes mellitus without complications (4) Hyperlipidemia: Status: Acute Qualifiers: Hyperlipidemia type: unspecified Qualified Code(s): E78.5 - Hyperlipidemia, unspecified Category: Medical Code(s): E78.5 - Hyperlipidemia, unspecified (5) GERD (gastroesophageal reflux disease): Status: Acute Qualifiers: Esophagitis presence: esophagitis presence not specified Qualified Code(s): K21.9 - Gastro-esophageal reflux disease without esophagitis Category: Medical Code(s): K21.9 - Gastro-esophageal reflux disease without esophagitis Plan 68 Yo M PMHx of IDDM, HTN, HLD, CHF presented to ED for evaluation of 30 days of progressive dyspnea and bilateral lower extremity swelling. Patient is normotensive slightly elevated heart rate but afebrile satting at greater than 94% on room air currently upon arrival, Physical exam is remarkable for 3+ bilateral dependent edema. Breath sounds are clear and equal bilaterally may be slightly diminished at the right base with no adventitious sounds. D-dimer returns markedly elevated. Initial troponin elevated at 0.12. CT PE showed extensive right-sided and some left-sided pulmonary embolism including the right upper right middle and right lower lobe segmental PE with considerable right heart strain. Patient was initiated on 1 mg/kg of Lovenox. Interactive discussion was had with cardiology on-call who recommends admission and reevaluation in the morning for possible thrombectoInitial interventions include Lasix 40 mg IV push. Medicine agreed for admission. Plan as follow: - Acute PE with cor pulmonale: started on full dose lovenox plan for pulmonary embolectomy, per cardiology likely tomorrow -IDDM with hyperglycemi. suspected no well controlled resume home insulin on SSL accucheck -HTN/HLD nursing to resume home meds Hold BP meds if hypotensive. on Protonix for GERD full code likely DC 1-2 days pending cardiology work up, will benefit from oncology f/u as OP given history of prostate cancer
--- NOTE | 2023-08-30 18:57 | PC.NURSE ---
18:00- Z stitch removed. No oozing noted. Small pencil eraser amount of blood noted to old dressing. New dressing with 4x4 and tegaderm applied. Sand bag reapplied. 18:15- Site remains cdi 18:30- Site remains cdi
[2023-08-30 20:15] LABS: POC Glucose,Bedside 244 (70-110)
[2023-08-31] VITALS (10 sets, daily range): BP systolic 99–124; BP diastolic 65–87; PULSE 84–100; RESP 16–21; TEMP 36.8–37.2; O2SAT 91–98; BMI 42.0
--- NOTE | 2023-08-31 04:48 | PC.NURSE ---
DENIES PAIN/SOA. O2 AT 2LNC. VITAL SIGNS STABLE. AFEBRILE. DRSG TO RIGHT GROIN C/D/I. NO SIGN OF BLEEDING AT CARDIAC CATH SITE. NSR ON TELEMETRY.
[2023-08-31 05:47] LABS: POC Glucose,Bedside 270 (70-110)
[2023-08-31] MEDS: humaLOG 100 UNITS/ML 3ML VIAL (SSI) SQ ×4 (05:49→21:02)
[2023-08-31 07:25] LABS: Eosinophils # 0.2 K/mm3 (0.0-0.4); Lymphocytes # 1.6 K/mm3 (0.7-4.5)
[2023-08-31 07:36] LABS: Basophils # 0.1 K/mm3 (0-0.2); Basophils % 0.5 % (0.1-2.0); Eosinophils % 1.9 % (0.1-12.0); Hematocrit 43.2 % (42.0-52.0); Lymphocytes % 19.1 % (10-50); Mean Corpuscular HGB Conc 32.2 g/dL (31.8-35.4); Mean Corpuscular Volume 96.3 fl (80-94); Mean Platelet Volume 9.3 fl (7.4-10.4); Monocytes # 0.8 K/mm3 (0.1-1.0); Monocytes % 8.9 % (1.7-9.3); Neutrophils # 5.9 K/mm3 (1.8-7.8); Neutrophils % 69.6 % (37.0-80.0); Platelet Count 131 K/mm3 (142-424); Red Blood Count 4.49 M/mm3 (4.60-6.20); Red Cell Distribution Width 14.2 % (11.5-17.5); White Blood Count 8.4 K/mm3 (4.8-10.8)
[2023-08-31 07:37] LABS: Hemoglobin 13.9 g/dL (14.1-18.0)
[2023-08-31 07:41] LABS: Alanine Aminotransferase 84 U/L (12-78); Albumin Level 3.3 g/dl (3.5-5.0); Albumin/Globulin Ratio 1.3 (1.1-1.8); Alkaline Phosphatase 70 U/L (38-126); Anion Gap 12.4 mEq/L (5-15); Aspartate Amino Transferase 37 U/L (17-59); Blood Urea Nitrogen 20 mg/dl (9-20); Calcium 9.1 mg/dl (8.4-10.2); Carbon Dioxide 29 mmol/L (22.0-30.0); Chloride 98 mmol/L (98-107); Creatinine Clearance Estimated 62 mL/min (50-200); Estimated Glomerular Filt Rate 67 ml/min (>60); GFR (African American) 81 ML/MIN (>60); Globulin 2.6 g/dL (1.3-3.2); Glucose 286 mg/dl (74-100); Magnesium 1.7 mg/dl (1.6-2.3); Potassium 4.4 mmoL/L (3.5-5.1); Sodium 135 mmol/L (136-145); Total Protein,Serum 5.9 g/dl (6.3-8.2)
--- NOTE | 2023-08-31 08:00 | CA_ITS ---
FINAL REPORT TECHNIQUE: Bilateral lower extremity venous duplex was performed with augmentation and compression. CLINICAL HISTORY: PE, chronic Leg swelling, pt had a pulmonary embolectomy COMPARISON: None FINDINGS: Proper flow is seen throughout the deep venous systems bilaterally from the popliteal veins through the superficial femoral vein. The right lower extremity common femoral vein was not imaged secondary to bandaging from a heart cath performed 08/30/2023. There is thrombus present in the left leg below the knee in superficial varicosities. There is no evidence of deep venous thrombosis. IMPRESSION: No evidence of deep venous thrombosis. Common femoral vein on the right was not imaged secondary to a recent heart cath as described. There are small venous varicosities in the left lower extremity below the knee that are noncompressible, consistent with superficial venous thrombosis. Reviewed, Interpreted and Dictated by Nikolay Ashley MD Transcribed by Alma Piper Authenticated and [facility]
--- NOTE | 2023-08-31 08:42 | P.PN_ITS ---
Subjective Subjective Date: 08/31/23 Time: 08:43 Principal diagnosis: PE Interval history: 68-year-old white male in bed in no acute distress. Still with exertional shortness of breath just walking across the room. He is still on oxygen by nasal cannula 2 L/min with O2 saturation in the 94% range. Exam Data for Last 24 hours Vital signs and Labs for Last 24 Hours: Temp Pulse Resp BP Pulse Ox O2 Del Method O2 Flow Rate 98.2 F 100 H 16 111/81 94 L Nasal Cannula 2 08/31/23 04:00 08/31/23 08:00 08/31/23 04:00 08/31/23 04:00 08/31/23 04:00 08/31/23 06:28 08/31/23 06:28 Laboratory Results - last 24 hr 08/30/23 07:06: Troponin I 0.11 H 08/30/23 20:04: POC Glucose 244 H 08/31/23 05:35: POC Glucose 270 H 08/31/23 07:00: WBC 8.4, RBC 4.49 L, Hgb 13.9 L D, Hct 43.2, MCV 96.3 H, MCH 31.0, MCHC 32.2, RDW 14.2, Plt Count 131 L, MPV 9.3, Neut % (Auto) 69.6, Lymph % (Auto) 19.1, [place] % (Auto) 8.9, Eos % (Auto) 1.9, Baso % (Auto) 0.5, Neut # (Auto) 5.9, Lymph # (Auto) 1.6, [place] # (Auto) 0.8, Eos # (Auto) 0.2, Baso # (Auto) 0.1, Sodium 135 L, Potassium 4.4, Chloride 98, Carbon Dioxide 29, Anion Gap 12.4, BUN 20, Creatinine 1.10, Estimated Creat Clear 62, Estimated GFR 67, Est GFR ( Amer) 81, Glucose 286 H, Calcium 9.1, Magnesium 1.7 D, Total Bilirubin 1.0, AST 37 D, ALT 84 H D, Alkaline Phosphatase 70, Total Protein 5.9 L, Albumin 3.3 L D, Globulin 2.6, Albumin/Globulin Ratio 1.3 I & O for Last 24 hours: Intake & Output 08/28/23 08/29/23 08/30/23 05/21/24 11:59 11:59 11:59 11:59 Intake Total 0 / 0 460 / 460 Output Total 2650 / 2650 802 / 802 Balance -2650 / -2650 -342 / -342 Weight 294 lb 284 lb Constitutional Constitutional: no acute distress *Routine Respiratory Exam Respiratory: Present CTA bilaterally *Routine Cardiovascular Exam Cardiovascular: Present RRR *Routine Extremities Exam Extremities: Present edema *Routine Neurological Exam Neurological: Present alert, oriented X3 and CN II-XII intact Progress Note: A&P Assessment and plan (1) Pulmonary embolism with acute cor pulmonale: Status: Acute (2) Hypertension: Status: Acute (3) DM2 (diabetes mellitus, type 2): Status: Acute (4) Hyperlipidemia: Status: Acute (5) GERD (gastroesophageal reflux disease): Status: Acute Assessment and Plan Assessment and Plan for All Diagnoses:: 1. Bilateral pulmonary emboli -On Xarelto 15 mg twice daily -Status post pulmonary embolectomy yesterday 2. Diabetes mellitus -Hemoglobin A1c 9.6 3. Elevated troponins likely secondary to RV strain from pulmonary embolus -Echo LVEF 60% with severe RV dilatation and moderately to severely reduced EF. 4. Hyperlipidemia -LDL 105, 06/21/2023 -Resume atorvastatin but increase to 80 mg daily 5. Hypertension -Resume bisoprolol and lisinopril but at reduced doses as vitals allow. 6. History of prostate cancer status post radiation therapy 7. Borderline tachycardia related to PE Recommend additional 24 hours in the hospital with limited echocardiogram in the morning to assess RV function. Continue to try to wean down supplemental oxygen as able. Resume blood pressure medicines but at reduced doses due to tachycardia and reduced RV function. One time dose of IV lasix 20 mg to help with elevated RVSP.
[2023-08-31] MEDS: BISOPROLOL 5MG TABLET 2.5 MG PO (09:18)
[2023-08-31] MEDS: LISINOPRIL 2.5MG TABLET 2.5 MG PO (09:19)
[2023-08-31] MEDS: RIVAROXABAN 15MG TABLET 15 MG PO ×2 (09:19→16:13)
[2023-08-31] MEDS: PANTOPRAZOLE 40MG TABLET 40 MG PO (09:19)
[2023-08-31 10:27] LABS: POC Glucose,Bedside 369 (70-110)
[2023-08-31] MEDS: FUROSEMIDE 20 MG/2 ML VIAL IV (10:34)
--- NOTE | 2023-08-31 15:35 | PC.NURSE ---
Pt. is 90-93% on 2L nc, 20g L ac sl, up stand by assist, right groin dressing c/d/i, pt. to be d/c tomorrow.
[2023-08-31 16:13] LABS: POC Glucose,Bedside 333 (70-110)
--- NOTE | 2023-08-31 19:56 | EXP.ACUTE.PN ---
Subjective *Date: 08/31/23 *Time: 19:56 Interval history: Patient somewhat better, on 2 L nasal cannula oxygen. Doppler obtained today showing superficial DVT. White cell count normal 8.4, hemoglobin stable. Platelets at 130. Diuresing well. Cardiology assisting with care. Denies any chest pain. No nausea or vomiting. States shortness of breath is worse with exertion. grey tender in right groin from insertion site during thrombectomy. No active bleeding however. Medical Exam Vital signs and Labs for Last 24 Hours: Vital Signs Temp Pulse Pulse Resp BP Pulse Ox O2 Del Method 08/31/23 17:33 Nasal Cannula 08/31/23 16:00 90 08/31/23 16:00 Nasal Cannula 08/31/23 15:52 98.7 F 88 21 110/66 96 Nasal Cannula 08/31/23 13:46 Nasal Cannula 08/31/23 12:27 100 H 08/31/23 12:05 Nasal Cannula 08/31/23 12:00 98.9 F 84 18 124/71 94 L Room Air 08/31/23 08:00 98.6 F 95 H 18 120/82 97 Room Air 08/31/23 08:00 Nasal Cannula 08/31/23 08:00 100 H 08/31/23 06:28 Nasal Cannula 08/31/23 05:00 Nasal Cannula 08/31/23 04:00 98.2 F 88 16 111/81 94 L 08/31/23 04:00 88 08/31/23 03:00 Nasal Cannula 08/31/23 01:00 Nasal Cannula 08/31/23 00:00 98.3 F 96 H 18 108/87 L 96 08/31/23 00:00 94 H 08/30/23 22:46 Nasal Cannula 08/30/23 22:25 97.8 F 93 H 18 100/68 L 100 Nasal Cannula 08/30/23 21:25 98.8 F 102 H 18 116/68 94 L Nasal Cannula 08/30/23 21:00 Nasal Cannula 08/30/23 20:25 97.8 F 102 H 18 131/72 95 Nasal Cannula 08/30/23 20:00 94 L Nasal Cannula 08/30/23 20:00 100 H O2 Flow Rate 08/31/23 17:33 2 08/31/23 16:00 08/31/23 16:00 2 08/31/23 15:52 08/31/23 13:46 2 08/31/23 12:27 08/31/23 12:05 2 08/31/23 12:00 08/31/23 08:00 08/31/23 08:00 4 08/31/23 08:00 08/31/23 06:28 2 08/31/23 05:00 2 08/31/23 04:00 08/31/23 04:00 08/31/23 03:00 2 08/31/23 01:00 2 08/31/23 00:00 08/31/23 00:00 08/30/23 22:46 2 08/30/23 22:25 2 08/30/23 21:25 2 08/30/23 21:00 2 08/30/23 20:25 2 08/30/23 20:00 2 08/30/23 20:00 Intake and Output 08/31/23 08/31/23 08/31/23 07:59 15:59 23:59 Intake Total 900 / 1140 240 / 1140 Output Total 0 / 0 0 / 0 Balance 0 / 1140 900 / 1140 240 / 1140 Intake: Intake, Oral Amount 900 / 1140 240 / 1140 Output: Output, Urine Amount 0 / 0 0 / 0 Other: Number of Unmeasured Voids 1 1 Number of Bowel Movements 1 1 Weight 128.82 kg Patient Weight 08/31/23 23:59 Weight 128.82 kg Laboratory Results - last 24 hr 08/30/23 20:04: POC Glucose 244 H 08/31/23 05:35: POC Glucose 270 H 08/31/23 07:00: WBC 8.4, RBC 4.49 L, Hgb 13.9 L D, Hct 43.2, MCV 96.3 H, MCH 31.0, MCHC 32.2, RDW 14.2, Plt Count 131 L, MPV 9.3, Neut % (Auto) 69.6, Lymph % (Auto) 19.1, [place] % (Auto) 8.9, Eos % (Auto) 1.9, Baso % (Auto) 0.5, Neut # (Auto) 5.9, Lymph # (Auto) 1.6, [place] # (Auto) 0.8, Eos # (Auto) 0.2, Baso # (Auto) 0.1, Sodium 135 L, Potassium 4.4, Chloride 98, Carbon Dioxide 29, Anion Gap 12.4, BUN 20, Creatinine 1.10, Estimated Creat Clear 62, Estimated GFR 67, Est GFR ( Amer) 81, Glucose 286 H, Calcium 9.1, Magnesium 1.7 D, Total Bilirubin 1.0, AST 37 D, ALT 84 H D, Alkaline Phosphatase 70, Total Protein 5.9 L, Albumin 3.3 L D, Globulin 2.6, Albumin/Globulin Ratio 1.3 08/31/23 10:19: POC Glucose 369 H* 08/31/23 16:06: POC Glucose 333 H* I & O for Labs for Last 24 Hours: Intake & Output 08/28/23 08/29/23 08/30/23 08/31/23 23:59 23:59 23:59 23:59 Intake Total 460 / 460 1140 / 1140 Output Total 3452 / 3452 0 / 0 Balance -2992 / -2992 1140 / 1140 Weight 133.356 kg 128.82 kg Constitutional: Present mild distress, morbidly obese and cooperative Head: Present atraumatic and normocephalic ENT: Present normal exam Respiratory: Present normal respiratory effort; Absent rhonchi, wheezes or crackles Cardiac: Present Reg Rate and Rhythm GI: Present normal bowel sounds; Absent tenderness Comment:: Right groin with hematoma, no palpable thrill. Mild tenderness to palpation. Extremities: Present normal inspection and full ROM Skin: Present intact; Absent erythema Neuro: Present Grossly Intact, alert, awake, oriented x 3 and moves all extremities Assessment and Plan *Assessment and plan (1) Pulmonary embolism with acute cor pulmonale: Status: Acute Qualifiers: Chronicity: acute Pulmonary embolism type: other Qualified Code(s): I26.09 - Other pulmonary embolism with acute cor pulmonale Category: Medical Code(s): I26.09 - Other pulmonary embolism with acute cor pulmonale (2) Hypertension: Status: Acute Qualifiers: Hypertension type: unspecified Qualified Code(s): I10 - Essential (primary) hypertension Category: Medical Code(s): I10 - Essential (primary) hypertension (3) DM2 (diabetes mellitus, type 2): Status: Acute Qualifiers: Diabetes mellitus computer terminal operator insulin use: with computer terminal operator use Diabetes mellitus complication status: with other specified complication Qualified Code(s): E11.69 - Type 2 diabetes mellitus with other specified complication; Z79.4 - intermediate (current) use of insulin Category: Medical Code(s): E11.9 - Type 2 diabetes mellitus without complications (4) Hyperlipidemia: Status: Acute Qualifiers: Hyperlipidemia type: unspecified Qualified Code(s): E78.5 - Hyperlipidemia, unspecified Category: Medical Code(s): E78.5 - Hyperlipidemia, unspecified (5) GERD (gastroesophageal reflux disease): Status: Acute Qualifiers: Esophagitis presence: esophagitis presence not specified Qualified Code(s): K21.9 - Gastro-esophageal reflux disease without esophagitis Category: Medical Code(s): K21.9 - Gastro-esophageal reflux disease without esophagitis Plan 68 Yo M PMHx of IDDM, HTN, HLD, CHF presented to ED for evaluation of 30 days of progressive dyspnea and bilateral lower extremity swelling. Patient is normotensive slightly elevated heart rate but afebrile satting at greater than 94% on room air currently upon arrival, Physical exam is remarkable for 3+ bilateral dependent edema. Breath sounds are clear and equal bilaterally may be slightly diminished at the right base with no adventitious sounds. D-dimer returns markedly elevated. Initial troponin elevated at 0.12. CT PE showed extensive right-sided and some left-sided pulmonary embolism including the right upper right middle and right lower lobe segmental PE with considerable right heart strain. Patient was initiated on 1 mg/kg of Lovenox. Patient was taken for thrombectomy. Cardiology continues to follow along. Showing improvement. Will monitor overnight with repeat echo in the morning. Problems addressed as follows: Acute PE with cor pulmonale Bilateral PE - showing clinical improvement. Transitioned to Xarelto 15 mg twice daily yesterday. Tolerating well. -Status post embolectomy yesterday. -Continue supplemental oxygen, goal sats greater than 90%. -Repeat echo pending for the morning due to right heart strain on initial echo. Diabetes: A1c 9.6. Continue sliding scale insulin with fingersticks ACHS Hyperlipidemia: Continue Lipitor 80 mg daily Hypertension: Resume bisoprolol and lisinopril Class III obesity complicates all aspects of his care History of prostate cancer status post radiation therapy -Recommend referral to hematology/oncology (Dr. Bland) after discharge for further workup of coagulopathy as well as evaluation and further management of his prostate cancer on Protonix for GERD full code Diabetic diet
[2023-08-31 20:32] LABS: POC Glucose,Bedside 336 (70-110)
[2023-08-31] MEDS: ATORVASTATIN 40MG TABLET 80 MG PO (21:03)
[2023-09-01] VITALS: BP 122/64; PULSE 86; PULSE 90; RESP 18; TEMP 37.1; O2SAT 95
[2023-09-01 04:00] VITALS: BP 113/57; PULSE 79; PULSE 84; RESP 18; TEMP 36.8; O2SAT 94; BMI 43.0
[2023-09-01 05:49] LABS: POC Glucose,Bedside 264 (70-110)
[2023-09-01] MEDS: humaLOG 100 UNITS/ML 3ML VIAL (SSI) SQ ×2 (06:26→10:49)
--- NOTE | 2023-09-01 07:00 | CA_ITS ---
APPROVED REPORT EXAM: Comprehensive 2D, Doppler, and color-flow Echocardiogram Early Childhood Associate: Fatou Blily CRT Ht: 5 ft 8 in Wt: 284lbs BSA: 2.37 BP: 131/72 mmHg Indications: PE, Shortness of Breath, Diabetes, Hyperlipidemia, Hypertension/HDD M-Mode Dimensions RVDd 3.58 cm (0.9-2.6) LVDd 4.02 cm (3.5-5.7) LVDs 2.50 cm (3.5-5.7) IVSd 1.69 cm (0.6-1.1) PWd 1.17 cm (0.6-1.1) EF (Teich) 68.50% FS 37.80% EDV (Teich) 70.80 mL ESV (Teich) 22.30 mL Tricuspid Valve TR P. Velocity 229.00 cm/s RAP Estimate 10.00 mmHg RVSP 31.00 mmHg Other Information Study Quality: Fair Conclusion This is a limited TTE to evaluate for RV size and function following embolectomy. Limited windows were obtained. The right ventricle appears moderately dilated with moderate reduction in RV function. RVSP is 20 mmHg + RA pressure. Compared to prior study from 08/30/2023, the RV is less dilated, but overall function appears unchanged. The RVSP is now improved. Electronically signed by : Esha Remy MD 09/01/2023 12:14:10
[2023-09-01 07:41] LABS: Basophils # 0.1 K/mm3 (0-0.2); Basophils % 0.6 % (0.1-2.0); Eosinophils # 0.3 K/mm3 (0.0-0.4); Eosinophils % 3.3 % (0.1-12.0); Hematocrit 37.5 % (42.0-52.0); Lymphocytes # 1.5 K/mm3 (0.7-4.5); Lymphocytes % 19.5 % (10-50); Mean Corpuscular HGB Conc 33.2 g/dL (31.8-35.4); Mean Corpuscular Hemoglobin 31.5 pg (27.0-31.2); Mean Corpuscular Volume 94.7 fl (80-94); Mean Platelet Volume 9.3 fl (7.4-10.4); Monocytes # 0.6 K/mm3 (0.1-1.0); Monocytes % 8.2 % (1.7-9.3); Neutrophils # 5.2 K/mm3 (1.8-7.8); Neutrophils % 68.4 % (37.0-80.0); Platelet Count 133 K/mm3 (142-424); Red Blood Count 3.96 M/mm3 (4.60-6.20); Red Cell Distribution Width 14.1 % (11.5-17.5); White Blood Count 7.7 K/mm3 (4.8-10.8)
[2023-09-01 07:47] LABS: Alanine Aminotransferase 54 U/L (12-78); Albumin Level 3.2 g/dl (3.5-5.0); Albumin/Globulin Ratio 1.2 (1.1-1.8); Alkaline Phosphatase 72 U/L (38-126); Anion Gap 8.8 mEq/L (5-15); Aspartate Amino Transferase 29 U/L (17-59); Bilirubin,Total 0.8 mg/dl (0.2-1.3); Blood Urea Nitrogen 19 mg/dl (9-20); Calcium 8.8 mg/dl (8.4-10.2); Carbon Dioxide 30 mmol/L (22.0-30.0); Chloride 97 mmol/L (98-107); Creatinine Clearance Estimated 68 mL/min (50-200); Estimated Glomerular Filt Rate 84 ml/min (>60); GFR (African American) 102 ML/MIN (>60); Globulin 2.6 g/dL (1.3-3.2); Glucose 267 mg/dl (74-100); Potassium 3.8 mmoL/L (3.5-5.1); Sodium 132 mmol/L (136-145); Total Protein,Serum 5.8 g/dl (6.3-8.2)
[2023-09-01 07:54] LABS: Magnesium 1.7 mg/dl (1.6-2.3)
--- NOTE | 2023-09-01 07:57 | P.DS_ITS ---
General Admission date:: 08/30/23 Discharge date: 09/01/23 HPI HPI HPI: This is a 68 Yo M PMHx of IDDM, HTN, HLD, CHF presented to ED for evaluation of 30 days of progressive dyspnea and bilateral lower extremity swelling. Patient initially went to PCP and was diagnosed with an upper respiratory tract infection prescribed antibiotics however his dyspnea on exertion did not improve and continued to worsen. Patient is now reported that he is dyspneic even with light exertion and sometimes even at rest. Patient however denies chest pain fever chills hemoptysis hematochezia melena nausea vomit diarrhea or productive cough. Admitted for treatment and management. Hospital Course Hospital Course Hospital Course: 68 Yo M PMHx of IDDM, HTN, HLD, CHF presented to ED for evaluation of 30 days of progressive dyspnea and bilateral lower extremity swelling. Patient is normotensive slightly elevated heart rate but afebrile satting at greater than 94% on room air currently upon arrival, Physical exam is remarkable for 3+ bilateral dependent edema. Breath sounds are clear and equal bilaterally may be slightly diminished at the right base with no adventitious sounds. D-dimer returns markedly elevated. Initial troponin elevated at 0.12. CT PE showed extensive right-sided and some left-sided pulmonary embolism including the right upper right middle and right lower lobe segmental PE with considerable right heart strain. Patient was initiated on 1 mg/kg of Lovenox. Patient was taken f or thrombectomy. Cardiology continues to follow along. Showing improvement. Will monitor overnight with repeat echo in the morning. Problems addressed as follows: Acute PE with cor pulmonale Bilateral PE - showing clinical improvement. Transitioned to Xarelto 15 mg twice daily yesterday. Tolerating well. -Status post embolectomy yesterday. -Continue supplemental oxygen, goal sats greater than 90%. -Repeat echo pending for the morning due to right heart strain on initial echo. 1. Bilateral pulmonary emboli -On Xarelto 15 mg twice daily -Status post pulmonary embolectomy 2. Diabetes mellitus -Hemoglobin A1c 9.6 3. Elevated troponins likely secondary to RV strain from pulmonary embolus -Echo LVEF 60% with severe RV dilatation and moderately to severely reduced EF. -Limited echo today pending 4. Hyperlipidemia -LDL 105, 06/21/2023 -Resume atorvastatin but increase to 80 mg daily 5. Hypertension -Resume bisoprolol and lisinopril but at reduced doses as vitals allow. 6. History of prostate cancer status post radiation therapy 7. Borderline tachycardia related to PE Stable from a cardiac standpoint for discharge home. Home medication recommendations: Lisinopril 2.5 mg daily Bisoprolol 2.5 mg daily Atorvastatin 80 mg daily Lasix 20 mg daily Xarelto 15 mg twice daily with meals for 21 days then changed to 20 mg daily with meal Protonix 40 mg daily Fenofibrate 160 mg daily Diabetes: A1c 9.3. Treated with sliding scale insulin during admission. Recommend resuming his 70/30 combo twice daily upon discharge increase morning dose to 60 units, evening dose of 50 units. Continue metformin for abnormal grams twice daily. Needs close follow-up for further adjustment. Hyperlipidemia: Continue Lipitor 80 mg daily Hypertension: Resume bisoprolol and lisinopril Class III obesity complicates all aspects of his care History of prostate cancer status post radiation therapy -Recommend referral to hematology/oncology (Dr. Bland) after discharge for further workup of coagulopathy as well as evaluation and further management of his prostate cancer Exam Data for Last 24 hours Vital signs and Labs for Last 24 Hours: Temp Pulse Resp BP Pulse Ox O2 Del Method O2 Flow Rate 98.2 F 84 18 113/57 L 94 L Room Air 2 09/01/23 04:00 09/01/23 04:00 09/01/23 04:00 09/01/23 04:00 09/01/23 04:00 09/01/23 07:00 09/01/23 04:00 Laboratory Results - last 24 hr 08/31/23 10:19: POC Glucose 369 H* 08/31/23 16:06: POC Glucose 333 H* 08/31/23 20:18: POC Glucose 336 H* 09/01/23 05:39: POC Glucose 264 H 09/01/23 06:30: Sodium 132 L, Potassium 3.8, Chloride 97 L, Carbon Dioxide 30, Anion Gap 8.8, BUN 19, Creatinine 0.90, Estimated Creat Clear 68, Estimated GFR 84, Est GFR ( Amer) 102 D, Glucose 267 H, Calcium 8.8, Magnesium 1.7, Total Bilirubin 0.8, AST 29, ALT 54 D, Alkaline Phosphatase 72, Total Protein 5.8 L, Albumin 3.2 L, Globulin 2.6, Albumin/Globulin Ratio 1.2 I & O for Last 24 hours: Intake & Output 08/29/23 08/30/23 08/31/23 09/01/23 23:59 23:59 23:59 23:59 Intake Total 460 / 460 1140 / 1140 Output Total 3452 / 3452 0 / 0 Balance -2992 / -2992 1140 / 1140 Weight 133.356 kg 128.82 kg 131.723 kg Results Data Completed and Pending Labs on day of discharge: Labs from last 24 hours 09/01/23 09/01/23 08/31/23 06:30 05:39 20:18 Sodium 132 L Potassium 3.8 Chloride 97 L Carbon Dioxide 30 Anion Gap 8.8 BUN 19 Creatinine 0.90 Estimated Creat Clear 68 Estimated GFR 84 Est GFR ( Amer) 102 D Glucose 267 H POC Glucose 264 H 336 H* Calcium 8.8 Magnesium 1.7 Total Bilirubin 0.8 AST 29 ALT 54 D Alkaline Phosphatase 72 Total Protein 5.8 L Albumin 3.2 L Globulin 2.6 Albumin/Globulin Ratio 1.2 08/31/23 08/31/23 16:06 10:19 Sodium Potassium Chloride Carbon Dioxide Anion Gap BUN Creatinine Estimated Creat Clear Estimated GFR Est GFR ( Amer) Glucose POC Glucose 333 H* 369 H* Calcium Magnesium Total Bilirubin AST ALT Alkaline Phosphatase Total Protein Albumin Globulin Albumin/Globulin Ratio DS: Diagnosis Discharge Diagnosis (1) Pulmonary embolism with acute cor pulmonale: Status: Acute Code(s): I26.09 - Other pulmonary embolism with acute cor pulmonale Qualifiers: Chronicity: acute Pulmonary embolism type: other Qualified Code(s): I26.09 - Other pulmonary embolism with acute cor pulmonale (2) Hypertension: Status: Acute Code(s): I10 - Essential (primary) hypertension Qualifiers: Hypertension type: unspecified Qualified Code(s): I10 - Essential (primary) hypertension (3) DM2 (diabetes mellitus, type 2): Status: Acute Code(s): E11.9 - Type 2 diabetes mellitus without complications Qualifiers: Diabetes mellitus complication status: with other specified complication 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: with ad terminal makeup operator use Qualified Code(s): E11.69 - Type 2 diabetes mellitus with other specified complication; 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 (4) Hyperlipidemia: Status: Acute Code(s): E78.5 - Hyperlipidemia, unspecified Qualifiers: Hyperlipidemia type: unspecified Qualified Code(s): E78.5 - Hyperlipidemia, unspecified (5) GERD (gastroesophageal reflux disease): Status: Acute Code(s): K21.9 - Gastro-esophageal reflux disease without esophagitis Qualifiers: Esophagitis presence: esophagitis presence not specified Qualified Code(s): K21.9 - Gastro-esophageal reflux disease without esophagitis Meds Home Medications and Allergies Home Medications Medication Instructions Recorded Confirmed Type pen needle, diabetic 31 gauge x #100 ea 05/04/22 08/30/23 Rx 5/16 (BD Ultra-Fine Short Pen Needle) blood sugar diagnostic (Accu-Chek #100 ea 07/02/22 08/30/23 Rx Ashly Plus test strips) fenofibrate 160 mg tablet 160 mg PO DAILY #90 tabs 11/26/22 08/30/23 Rx metformin 500 mg tablet 500 mg PO BID 90 days #180 tabs 11/26/22 08/30/23 Rx omeprazole 20 mg capsule,delayed 20 mg PO DAILY 90 days #90 caps 11/26/22 08/30/23 Rx release pen needle, diabetic 32 gauge x #100 ea 05/24/23 08/30/23 Rx 5/32 (Droplet Pen Needle) codeine 10 mg-guaifenesin 100 mg/5 10 ml PO Q6HP PRN Cough 08/30/23 08/30/23 History mL oral liquid atorvastatin 80 mg tablet 80 mg PO DAILY 30 days #30 tabs 09/01/23 Rx bisoprolol fumarate 5 mg tablet 2.5 mg (1/2 x 5 mg) PO DAILY #90 09/01/23 08/30/23 Rx tabs furosemide 20 mg tablet (Lasix) 20 mg PO DAILY #30 tabs 09/01/23 Rx insulin NPH-regular 70-30 U-100 See Rx Instructions .Route 09/01/23 08/30/23 Rx insulin 100 unit/mL subcutaneous .COMPLEX #15 mL pen (Novolin 70-30 FlexPen U-100 Insulin) lisinopril 2.5 mg tablet 2.5 mg PO DAILY 30 days #30 tabs 09/01/23 Rx nicotine 21 mg/24 hr daily 21 mg transdermal DAILYP PRN 09/01/23 Rx transdermal patch Nicotine Cravings 30 days #30 ea pantoprazole 40 mg tablet,delayed 40 mg PO DAILY 30 days #30 tabs 09/01/23 Rx release rivaroxaban 15 mg tablet (Xarelto) 15 mg PO BIDWMEAL 19 days #38 tabs 09/01/23 Rx rivaroxaban 20 mg tablet (Xarelto) 20 mg PO DAILY #30 tabs 09/01/23 Rx New Prescriptions to Start Prescriptions: atorvastatin Memo,Balbir furosemide [Lasix] Memo,Balbir lisinopril Memo,Balbir nicotine Memo,Balbir pantoprazole Memo,Balbir rivaroxaban [Xarelto] Memo,Balbir rivaroxaban [Xarelto] Memo,Balbir Allergies Allergy/AdvReac Type Severity Reaction Status Date / Time acetaminophen [From Lortab] Allergy Verified 08/27/23 09:00 hydrocodone [From Lortab] Allergy Verified 08/27/23 09:00 Discharge Plan Disposition Patient Disposition: Home, Self-Care Condition: Fair Discharge Order Discharge Orders: Discharge Order (Routine); Ordered 09/01/23 Ordered By: Balbir Hampton Follow up Plan Follow up with: Saskia Vora APRN [Primary Care Provider] - 09/07/23 9:30 am Porfirio Bland MD [Staff Physician] - 09/02/23 2:00 pm Gaudencio Remy MD [Staff Physician] - 09/08/23 10:30 am Prescriptions/Medication Reconciliation: New atorvastatin 80 mg tablet 80 mg PO DAILY 30 Days Qty: 30 0RF nicotine 21 mg/24 hr Patch 24 Hour 21 mg transdermal DAILYP PRN (Reason: Nicotine Cravings) 30 Days Qty: 30 0RF lisinopril 2.5 mg Tablet 2.5 mg PO DAILY 30 Days Qty: 30 0RF Xarelto 15 mg Tablet 15 mg PO BIDWMEAL 19 Days Qty: 38 0RF Xarelto 20 mg tablet 20 mg PO DAILY Qty: 30 1RF Rx Instructions: must administer with evening meal pantoprazole 40 mg Tablet,Delayed Release (Dr/Ec) 40 mg PO DAILY 30 Days Qty: 30 0RF furosemide [Lasix] 20 mg tablet 20 mg PO DAILY Qty: 30 0RF Continued (DME) Accu-Chek Ashly Plus test strp Strip See Rx Instructions .Route Qty: 100 5RF Rx Instructions: Use to check blood sugar BID times daily prn fenofibrate 160 mg tablet 160 mg PO DAILY Qty: 90 3RF metformin 500 mg tablet 500 mg PO BID 90 Days Qty: 180 3RF omeprazole 20 mg capsule,delayed release(DR/EC) 20 mg PO DAILY 90 Days Qty: 90 3RF (DME) pen needle, diabetic [BD Ultra-Fine Short Pen Needle] 31 gauge x 5/16 needle See Rx Instructions .Route Qty: 100 6RF Rx Instructions: As directed (DME) pen needle, diabetic [Droplet Pen Needle] 32 gauge x 5/32 needle See Rx Instructions .ROUTE .MEDSUPPLY Qty: 100 3RF Rx Instructions: As directed codeine-guaifenesin 10-100 mg/5 mL liquid 10 ml PO Q6HP PRN (Reason: Cough) Patient Comments: 10 mL orally every 6 hours As Needed for cough Changed bisoprolol fumarate 5 mg tablet 2.5 mg PO DAILY Qty: 90 3RF Novolin 70-30 FlexPen U-100 100 unit/mL (70-30) insulin pen See Rx Instructions .ROUTE .COMPLEX Qty: 15 0RF Rx Instructions: 70 units with morning dose, 60 units with evening dose. Discontinued atorvastatin 40 mg tablet 40 mg PO DAILY Qty: 90 3RF lisinopril-hydrochlorothiazide 10-12.5 mg tablet 1 tab PO DAILY Problem Reconciliation Problems Reviewed?: Yes Patient Discharge Instructions ACTIVITY: Continue current activity DIET: diabetic diet Patient Instructions: DI for Pulmonary Embolism, DI for Cardiac Catheterization, DI for Surgical Site Infection Providers Primary Care Provider: Saskia Vora Admit Provider: Lul Huynh Attending Provider: Lul Huynh
[2023-09-01 08:00] VITALS: BP 127/77; PULSE 89; PULSE 90; RESP 18; TEMP 37; O2SAT 94
[2023-09-01] MEDS: BISOPROLOL 5MG TABLET 2.5 MG PO (08:28)
[2023-09-01] MEDS: RIVAROXABAN 15MG TABLET 15 MG PO (08:28)
[2023-09-01] MEDS: LISINOPRIL 2.5MG TABLET 2.5 MG PO (08:28)
[2023-09-01] MEDS: PANTOPRAZOLE 40MG TABLET 40 MG PO (08:28)
[2023-09-01 08:37] LABS: Hemoglobin 12.4 g/dL (14.1-18.0)
--- NOTE | 2023-09-01 09:07 | EXP.CARD.PN ---
Subjective Subjective Date: 09/01/23 Time: 09:08 Principal diagnosis: PE Interval history: 68-year-old white male sitting in bedside chair in no acute distress. Patient was able to ambulate in the hallway yesterday without oxygen. No evidence of bleeding on anticoagulation. Exam Data for Last 24 hours Vital signs and Labs for Last 24 Hours: Temp Pulse Resp BP Pulse Ox O2 Del Method O2 Flow Rate 98.2 F 84 18 113/57 L 94 L Room Air 2 09/01/23 04:00 09/01/23 04:00 09/01/23 04:00 09/01/23 04:00 09/01/23 04:00 09/01/23 07:00 09/01/23 04:00 Laboratory Results - last 24 hr 08/31/23 10:19: POC Glucose 369 H* 08/31/23 16:06: POC Glucose 333 H* 08/31/23 20:18: POC Glucose 336 H* 09/01/23 05:39: POC Glucose 264 H 09/01/23 06:30: WBC 7.7, RBC 3.96 L, Hgb 12.4 L D, Hct 37.5 L, MCV 94.7 H, MCH 31.5 H, MCHC 33.2, RDW 14.1, Plt Count 133 L, MPV 9.3, Neut % (Auto) 68.4, Lymph % (Auto) 19.5, [place] % (Auto) 8.2, Eos % (Auto) 3.3, Baso % (Auto) 0.6, Neut # (Auto) 5.2, Lymph # (Auto) 1.5, [place] # (Auto) 0.6, Eos # (Auto) 0.3, Baso # (Auto) 0.1, Sodium 132 L, Potassium 3.8, Chloride 97 L, Carbon Dioxide 30, Anion Gap 8.8, BUN 19, Creatinine 0.90, Estimated Creat Clear 68, Estimated GFR 84, Est GFR ( Amer) 102 D, Glucose 267 H, Calcium 8.8, Magnesium 1.7, Total Bilirubin 0.8, AST 29, ALT 54 D, Alkaline Phosphatase 72, Total Protein 5.8 L, Albumin 3.2 L, Globulin 2.6, Albumin/Globulin Ratio 1.2 I & O for Last 24 hours: Intake & Output 0508/30/23 08/31/23 09/01/23 11:59 11:59 11:59 11:59 Intake Total 0 / 0 820 / 820 780 / 780 Output Total 2650 / 2650 802 / 802 0 / 0 Balance -2650 / -2650 780 / 780 Weight 294 lb 284 lb 290 lb 6.4 oz Constitutional Constitutional: no acute distress *Routine Respiratory Exam Respiratory: Present CTA bilaterally *Routine Cardiovascular Exam Cardiovascular: Present RRR Progress Note: A&P Assessment and plan (1) Pulmonary embolism with acute cor pulmonale: Status: Acute (2) Hypertension: Status: Acute (3) DM2 (diabetes mellitus, type 2): Status: Acute (4) Hyperlipidemia: Status: Acute (5) GERD (gastroesophageal reflux disease): Status: Acute Assessment and Plan Assessment and Plan for All Diagnoses:: 1. Bilateral pulmonary emboli -On Xarelto 15 mg twice daily -Status post pulmonary embolectomy 2. Diabetes mellitus -Hemoglobin A1c 9.6 3. Elevated troponins likely secondary to RV strain from pulmonary embolus -Echo LVEF 60% with severe RV dilatation and moderately to severely reduced EF. -Limited echo today pending 4. Hyperlipidemia -LDL 105, 06/21/2023 -Resume atorvastatin but increase to 80 mg daily 5. Hypertension -Resume bisoprolol and lisinopril but at reduced doses as vitals allow. 6. History of prostate cancer status post radiation therapy 7. Borderline tachycardia related to PE Stable from a cardiac standpoint for discharge home. Home medication recommendations: Lisinopril 2.5 mg daily Bisoprolol 2.5 mg daily Atorvastatin 80 mg daily Lasix 20 mg daily Xarelto 15 mg twice daily with meals for 21 days then changed to 20 mg daily with meal Protonix 40 mg daily Fenofibrate 160 mg daily Follow-up in our office in 1 week. Plan to refer to hematology oncology for further evaluation of etiology of PE in light of patient's history of prostate cancer and no identifiable etiology for PE.
[2023-09-01 10:49] LABS: POC Glucose,Bedside 307 (70-110)
[2023-09-01 11:18] LABS: Hemoglobin A1C 9.3 % (4.0-6.0)
[2023-09-01 11:49] VITALS: BP 112/71; PULSE 79; RESP 18; TEMP 36.8; O2SAT 91
[2023-09-01 12:00] VITALS: PULSE 90
== END 2023-09-01 12:58 | disposition home or self-care (01) | DRG 164 ==
LOC: ER 08-30 00:25 → 2ND 08-30 07:52
PROVIDERS: Internal Medicine; Internal Medicine Adolescent Medicine; Nurse Practitioner Family; Physician Assistant; Admitting Provider Internal Medicine; Emergency Provider Emergency Medicine; PCP Nurse Practitioner Family; Visit Provider Internal Medicine
PROC: 02CQ3ZZ Extirpation of Matter from Right Pulmonary Artery, Percutaneous Approach (ICD-10-PCS; principal; 2023-08-30 12:15)
DX: I26.09 Other pulmonary embolism with acute cor pulmonale (principal); Z68.41 Body mass index [BMI] 40.0-44.9, adult; Z85.46 Personal history of malignant neoplasm of prostate; E78.5 Hyperlipidemia, unspecified; E11.65 Type 2 diabetes mellitus with hyperglycemia; I11.0 Hypertensive heart disease with heart failure; E66.9 Obesity, unspecified; Z79.4 Long term (current) use of insulin; Z79.84 Long term (current) use of oral hypoglycemic drugs; I50.810 Right heart failure, unspecified
CPT/HCPCS: 36415; 37184; 71046; 71275; 80053; 81001; 82962; 83036; 83735; 83880; 84484; 85025; 85378; 85610; 93005; 93306; 93308; 93451; 93970; 99152; 99153; 99291; C1757; C1769; C1894; J1644; Q9967

== ENCOUNTER 2023-09-02 14:48 | Outpatient (CLI) | payer MEDICARE, OTHER, SELFPAY ==
[2023-09-04 12:50] LABS: Immunoglobulin G, Qn 850 mg/dL (603-1613); Immunoglobulin M, Qn 54 mg/dL (20-172)
== END 2023-09-02 23:59 | disposition home or self-care (01) ==
LOC: LAB 14:51
PROVIDERS: PCP Family Medicine; Visit Provider Internal Medicine Medical Oncology
DX: C61 Malignant neoplasm of prostate (principal); I26.99 Other pulmonary embolism without acute cor pulmonale
CPT/HCPCS: 36415; 81240; 81241; 82784; 85301; 86146

== ENCOUNTER 2023-09-02 19:06 | Emergency (ER) | payer MEDICARE, OTHER, SELFPAY ==
[2023-09-02] VITALS (7 sets, daily range): BP systolic 126–145; BP diastolic 72–88; PULSE 85–99; RESP 18–22; TEMP 36.4; O2SAT 94–98; BMI 43.0
--- NOTE | 2023-09-02 19:19 | ECG_ITS ---
APPROVED REPORT Exam: Resting ECG HR:97 bpm ECG Measurements Heart Rate 97 AXES AZ 169 P 67 QRSd 98 QRS -15 QT 375 T 113 QTc [address] DEVIATION AND MODERATE T-WAVE ABNORMALITY, CONSIDER ANTEROLATERAL ISCHEMIA [-0.1+ mV T-WAVE IN V3-V6] ABNORMAL ECG UNCONFIRMED REPORT Electronically signed by : Balbir Neil, 09/02/2023 23:05:09
--- NOTE | 2023-09-02 20:24 | CT_ITS ---
PROCEDURE INFORMATION: Exam: CTA Chest With Contrast Exam date and time: 09/02/2023 8:53 PM Age: 68 years old Clinical indication: Shortness of breath; Additional info: Worsening SOB diaphoresis, recent submassive pte TECHNIQUE: Imaging protocol: Computed tomographic angiography of the chest with contrast. Exam focused on the arteries. 3D rendering (Not supervised by radiologist): MIP and/or 3D reconstructed images were created by the technologist. Radiation optimization: All CT scans at this facility use at least one of these dose optimization techniques: automated exposure control; mA and/or kV adjustment per patient size (includes targeted exams where dose is matched to clinical indication); or iterative reconstruction. Contrast material: ISOVUE; Contrast volume: 70 ml; Contrast route: INTRAVENOUS (IV); COMPARISON: CT ANGIO CHEST PE PROTOCOL 08/29/2023 11:59 PM FINDINGS: Pulmonary arteries: Improving large bilateral pulmonary emboli since comparison. Aorta: Unremarkable. No aortic aneurysm. No aortic dissection. Lungs: 2 cm left apical solid mass. Increase in size since comparison 08/30/2023. Consider pulmonary infarct versus nodule. Follow-up to resolution. Pleural spaces: Unremarkable. No pneumothorax. No pleural effusion. Heart: Unremarkable. No cardiomegaly. No pericardial effusion. Lymph nodes: Unremarkable. No enlarged lymph nodes. Liver: Fatty liver. Gallbladder and bile ducts: Cholecystectomy. Bones/joints: Unremarkable. No acute fracture. Soft tissues: Unremarkable. IMPRESSION: 1. 2 cm left apical solid mass. Increase in size since comparison 08/30/2023. Consider pulmonary infarct versus nodule. Follow-up to resolution. 2. Improving large bilateral pulmonary emboli since comparison.
--- NOTE | 2023-09-02 20:27 | ED_ITS ---
Discharge Plan Disposition Patient Disposition: Still a Patient Prescriptions Prescriptions: No Action (DME) Accu-Chek Ashly Plus test strp Strip See Rx Instructions .Route Qty: 100 5RF Rx Instructions: Use to check blood sugar BID times daily prn fenofibrate 160 mg tablet 160 mg PO DAILY Qty: 90 3RF metformin 500 mg tablet 500 mg PO BID 90 Days Qty: 180 3RF omeprazole 20 mg capsule,delayed release(DR/EC) 20 mg PO DAILY 90 Days Qty: 90 3RF (DME) pen needle, diabetic [Droplet Pen Needle] 32 gauge x 5/32 needle See Rx Instructions .ROUTE .MEDSUPPLY Qty: 100 3RF Rx Instructions: As directed atorvastatin 80 mg tablet 80 mg PO DAILY 30 Days Qty: 30 0RF bisoprolol fumarate 5 mg tablet 2.5 mg PO DAILY Qty: 90 3RF lisinopril 2.5 mg Tablet 2.5 mg PO DAILY 30 Days Qty: 30 0RF Xarelto 15 mg Tablet 15 mg PO BIDWMEAL 19 Days Qty: 38 0RF Xarelto 20 mg tablet 20 mg PO DAILY Qty: 30 1RF Rx Instructions: must administer with evening meal pantoprazole 40 mg Tablet,Delayed Release (Dr/Ec) 40 mg PO DAILY 30 Days Qty: 30 0RF Novolin 70-30 FlexPen U-100 100 unit/mL (70-30) insulin pen See Rx Instructions .ROUTE .COMPLEX Qty: 15 0RF Rx Instructions: 70 units with morning dose, 60 units with evening dose. furosemide [Lasix] 20 mg tablet 20 mg PO DAILY Qty: 30 0RF Referrals Follow up/Referrals: Dion Butts MD [Primary Care Provider] - See instructions Activity Restrictions/Add. Instructions Additional Instructions/Restrictions: Overall your bilateral pulmonary emboli are improving as are the secondary evidence of strain and stress on your heart but there still remains some heart strain as we discussed. Please follow-up with our learning operations specialist and our web content executive as discussed. There is a 2 cm left upper lobe mass/nodule which may be a pulmonary infarct but also needs to be followed to resolution. I recommend you follow-up with a web content executive to make sure that this resolves downstream. It is possible that this is cancer but unlikely. No emergent medical condition identified today. Clinical Impressions Clinical Impression: Dyspnea, Diaphoresis, Lung mass, Bilateral pulmonary embolism Discharge ED Provider: Bebo Neil HPI General Chief Complaint: Shortness of Breath/Dyspnea Stated Complaint: Physican referal sweating Time Seen by Provider: 09/02/23 20:03 Mode of Arrival: Ambulatory Source of Information: Patient Limitations: No Limitations Description of Symptoms (Recalled from ER Triage Doc. by RN): Pt presents to ER with increased SOA and diaphoresis after a recent discharge on Wednesday. Pt reported to ER on Wednesday to be dx with bilateral PE's, heart cath performed as well. Pt denies any chest pain, nausea or vomiting. History of Present Illness HPI narrative: Patient is a 68-year-old male presents today with dyspnea and diaphoresis. Patient was recently admitted in the hospital on Wednesday where he was diagnosed with submassive pulmonary embolisms with severe right heart strain acute myocardial injury and cor pulmonale requiring a mechanical thrombectomy with Dr. Owens subsequently being anticoagulated on Xarelto. He was discharged yesterday without any oxygen requirement and was able to ambulate without any significant hypoxemia. He went home and started to feel tight in his chest and felt as though something were wrong and felt very diaphoretic to the point where he had to have a fan on him. This has happened several times prompting his return visit to the emergency department after talking to his primary care doctor. His echo that was performed in the hospital did demonstrate severe right heart strain. Related Data Previous Rx's Medication Instructions Recorded blood sugar diagnostic (Accu-Chek #100 ea 07/02/22 Ashly Plus test strips) fenofibrate 160 mg tablet 160 mg PO DAILY #90 tabs 11/26/22 metformin 500 mg tablet 500 mg PO BID 90 days #180 tabs 11/26/22 omeprazole 20 mg capsule,delayed 20 mg PO DAILY 90 days #90 caps 11/26/22 release pen needle, diabetic 32 gauge x #100 ea 05/24/23 (Droplet Pen Needle) atorvastatin 80 mg tablet 80 mg PO DAILY 30 days #30 tabs 09/01/23 bisoprolol fumarate 5 mg tablet 2.5 mg (1/2 x 5 mg) PO DAILY #90 09/01/23 tabs furosemide 20 mg tablet (Lasix) 20 mg PO DAILY #30 tabs 09/01/23 insulin NPH-regular 70-30 U-100 See Rx Instructions .Route 09/01/23 insulin 100 unit/mL subcutaneous .COMPLEX #15 mL pen (Novolin 70-30 FlexPen U-100 Insulin) lisinopril 2.5 mg tablet 2.5 mg PO DAILY 30 days #30 tabs 09/01/23 pantoprazole 40 mg tablet,delayed 40 mg PO DAILY 30 days #30 tabs 09/01/23 release rivaroxaban 15 mg tablet (Xarelto) 15 mg PO BIDWMEAL 19 days #38 tabs 09/01/23 rivaroxaban 20 mg tablet (Xarelto) 20 mg PO DAILY #30 tabs 09/01/23 Allergies Allergy/AdvReac Type Severity Reaction Status Date / Time acetaminophen [From Lortab] Allergy Verified 09/02/23 14:21 hydrocodone [From Lortab] Allergy Verified 09/02/23 14:21 [facility] Disclaimer: The information contained in this section may have been updated after the patient was seen, as this information can be updated by other users. Medical History History of prostate cancer Cataract FH: cholecystectomy Prostate cancer Hyperlipidemia Hypertension Diabetes mellitus Surgical History H/O circumcision History of appendectomy H/O knee surgery Family History Mother Stroke Father Stroke Social History Smoking Status: Never smoker second hand exposure: No alcohol intake: never current occupational status: retired Travel in the last 8 weeks: None household members: spouse housing: house marital status: ROS Obtained: Yes All systems reviewed & no additional complaints except as documented Physical Exam General General appearance: alert and in no apparent distress Respiratory Respiratory exam: Present other (Oxygen saturation is 90% on room air corrected to 95% on 2 L no significant respiratory distress or focal adventitious lung sounds) Cardiovascular Cardiovascular exam: Present regular rate and normal rhythm Neurological Exam Neurological exam: Present alert and oriented X3 HEART Score HEART Score HEART Score assessment performed?: No History (anamnesis): Slightly suspicious ECG: Normal Age: >65 years Risk factors: 1-2 risk factors Troponin: </= normal limit HEART Score: 3 Procedures Miscellaneous Procedure Procedure Performed: Limited cardiac ultrasound Indication: Dyspnea Identified structures: The heart was visualized in the parasternal long axis, parastenal short axis, apical four chamber and subxyphiod views. The IVC was visualized in the short axis and long axis at its entry into the right atrium. Findings: LVEF appears normal no pericardial effusion there is severe right heart strain with Nuñez sign RV LV ratio 1:1 and septal bowing Impression: Severe right heart strain as noted above normal LVEF no pericardial effusion Images were saved to permanent archive The study was technically adequate CPT: 05278-12 This study was performed by me, and I personally interpreted all images/videos. Based on my clinical judgement, these images were adequate and did not necessitate further imaging. Critical Care Critical Care Time Critical Care Time: Yes Attestation: On 09/02/23, the high probability of a clinically significant, sudden or life threatening deterioration of the following system(s) required my full and direct attention, intervention and personal management. The time I documented below is in addition to time spent performing reported procedures but includes the following listed in this critical care notation. Total Time Total Critical Care Time: 35 Medical Decision Making Kuldip Inquiry Pt receiving controlled substance: No Vital Signs Vital Signs: 09/02/23 19:09 09/02/23 19:30 09/02/23 20:00 Temperature 97.5 F L Temperature Source Oral Pulse Rate 95 H 94 H Pulse Rate [Left] 99 H Respiratory Rate 22 Blood Pressure 131/76 127/72 Blood Pressure [Right Arm] 126/74 Blood Pressure Mean 89 90 Blood Pressure Mean [Right Arm] 91 Blood Pressure Source [Right Arm] Automatic Cuff Blood Pressure Position [Right Arm] Supine 02 Sat by Pulse Oximetry 95 94 L 98 Oxygen Delivery Method Nasal Cannula Room Air Oxygen Flow Rate (LPM) 2 09/02/23 20:30 09/02/23 21:13 09/02/23 21:30 Temperature Temperature Source Pulse Rate 91 H 94 H 93 H Pulse Rate [Left] Respiratory Rate Blood Pressure 145/88 H 140/78 134/76 Blood Pressure [Right Arm] Blood Pressure Mean 98 88 88 Blood Pressure Mean [Right Arm] Blood Pressure Source [Right Arm] Blood Pressure Position [Right Arm] 02 Sat by Pulse Oximetry 98 96 96 Oxygen Delivery Method Room Air Room Air Room Air Oxygen Flow Rate (LPM) Lab Data Lab results reviewed: Yes I reviewed the patient's lab results. Labs: Lab Results 09/02/23 19:30: WBC 10.9 H D, RBC 4.07 L, Hgb 13.1 L, Hct 39.4 L, MCV 96.8 H, M CH 32.3 H, MCHC 33.3, RDW 14.2, Plt Count 147, MPV 9.7, Neut % (Auto) 75.3, Lymph % (Auto) 15.5, [place] % (Auto) 6.8, Eos % (Auto) 2.0, Baso % (Auto) 0.4, N eut # (Auto) 8.2 H, Lymph # (Auto) 1.7, [place] # (Auto) 0.7, Eos # (Auto) 0.2, Baso # (Auto) 0.0, Sodium 131 L, Potassium 4.4, Chloride 97 L, Carbon Dioxide 26, Anion Gap 12.4, BUN 20, Creatinine 1.10 D, Estimated Creat Clear 64, Estimated GFR 67, Est GFR ( Amer) 81 D, Glucose 368 H, Calcium 9.6, Total Bilirubin 0.6, AST 39 D, ALT 55, Alkaline Phosphatase 129 H, Troponin I 0.02, NT-Pro-B Natriuret Pep 1850 H, Total Protein 6.7, Albumin 3.8, Globulin 2.9, Albumin/Globulin Ratio 1.3 09/02/23 20:25: VBG pH 7.35, VBG pCO2 43.9, VBG pO2 55.0 H, VBG HCO3 23.6, VBG Total CO2 25.0, VBG O2 Saturation 87.0 H, VBG Base Excess -2.0, VBG Lactic Acid 3.1 H 09/02/23 19:30 09/02/23 19:30 Response Orders (Tests/Meds): ED MEDICATIONS Discontinued Medications Generic Name Dose Route Start Last Admin Trade Name Freq PRN Reason Stop Dose Admin Lactated Ringer's 500 mls @ 999 mls/hr 09/02/23 20:30 09/02/23 21:11 Lactated Ringer's 1000 Ml Bag IV 09/02/23 21:00 999 mls/hr .Q31M SHAWN Administration Iopamidol 70 ml 09/02/23 21:04 09/02/23 21:04 Iopamidol-370 (76%);100ml Bottle IV 09/02/23 21:05 70 ml ONCE ONE Administration Sodium Chloride 50 ml 09/02/23 21:04 09/02/23 21:05 0.9 % Sodium Chloride 50 Ml Vial IV 09/02/23 21:05 50 ml ONCE ONE Administration Sodium Chloride 10 ml 09/02/23 21:04 09/02/23 21:05 Sodium Chloride 0.9% 10ml Syr (Rad Only) IV 09/02/23 21:05 10 ml ONCE ONE Administration ORDERS Category Date Time Status CT angio chest PE protocol Stat Cat Scan 09/02/23 20:24 Completed POCUS Point of Care (ER Only) Stat Exams 09/02/23 20:09 Taken BNP [NT Pro Brain Natriuretic Pep.] Stat Lab 09/02/23 19:30 Completed CBC w/Auto Diff [Complete Blood Count Auto Diff] Stat Lab 09/02/23 19:30 Completed CMP [Comprehensive Metabolic Panel] Stat Lab 09/02/23 19:30 Completed Trop I [Troponin I] Stat Lab 09/02/23 19:30 Completed Troponin I Q3H Lab 09/02/23 23:30 Ordered Troponin I Q3H Lab 09/03/23 02:30 Ordered Venous Blood Gas Stat RT 09/02/23 20:25 Completed ECG Data Tracing #1: Attestation: I reviewed this ECG and interpreted as documented below: ECG Narrative: Ventricular rate of 97 no acute ischemic changes noted there is a negative deflection in lead aVF with left axis deviation no significant conduction abnormalities MDM Narrative Medical Decision Narrative: Patient is a 68-year-old male presenting today with worsening shortness of breath and diaphoresis after recent mechanical thrombectomy and pulmonary embolism currently on Xarelto. Bedside echo demonstrates persistent severe right heart strain with Nuñez sign septal bowing RV LV ratio of 1:1. Will repeat a CT PE to make sure is not any reaccumulation or worsening of his clot burden. Alternative diagnoses include UT acute coronary syndrome pneumonia heart failure etc. He currently is stable not diaphoretic not any significant distress at the moment. Of note patient has ecchymosis throughout his suprapubic and right groin area no significant fluctuant areas or abnormalities that would be out of proportion to what would be expected after recent anticoagulation and mechanical intervention. Reassessment 10:38 PM which I first interpreted shows improving bilateral pulmonary emboli there is a left upper lobe mass 2 cm that compared to CT scan a few days ago significant increase in size. He did have pulmonary emboli in that region as possible and very likely that this is evidence of a pulmonary infarction. Less likely would be malignancy but I did discuss this with the patient make sure that this is followed up outpatient to resolution. He has been given a referral to our web content executive. Patient does still have ongoing right heart strain but he still has residual pulmonary emboli as well. This is not worse than it was in the past BNP has improved troponin which was elevated in the past is now back to normal patient also hemodynamically stable I took his oxygen off and he has oxygen saturations in the low to mid 90s. He is very comfortable on my reassessment do not believe there is any ongoing emergent medical condition. Patient will follow-up both with her learning operations specialist and her web content executive and return with any worsening symptoms.
[2023-09-02 20:33] LABS: Chloride 97 mmol/L (98-107); Potassium 4.4 mmoL/L (3.5-5.1); Sodium 131 mmol/L (136-145)
[2023-09-02 20:36] LABS: Alanine Aminotransferase 55 U/L (12-78); Albumin Level 3.8 g/dl (3.5-5.0); Albumin/Globulin Ratio 1.3 (1.1-1.8); Alkaline Phosphatase 129 U/L (38-126); Anion Gap 12.4 mEq/L (5-15); Aspartate Amino Transferase 39 U/L (17-59); Bilirubin,Total 0.6 mg/dl (0.2-1.3); Blood Urea Nitrogen 20 mg/dl (9-20); Carbon Dioxide 26 mmol/L (22.0-30.0); Creatinine Clearance Estimated 64 mL/min (50-200); Estimated Glomerular Filt Rate 67 ml/min (>60); GFR (African American) 81 ML/MIN (>60); Globulin 2.9 g/dL (1.3-3.2); Total Protein,Serum 6.7 g/dl (6.3-8.2)
[2023-09-02 20:37] LABS: Calcium 9.6 mg/dl (8.4-10.2); Glucose 368 mg/dl (74-100)
[2023-09-02 20:43] LABS: Basophils % 0.4 % (0.1-2.0); Eosinophils # 0.2 K/mm3 (0.0-0.4); Hematocrit 39.4 % (42.0-52.0); Hemoglobin 13.1 g/dL (14.1-18.0); Lymphocytes # 1.7 K/mm3 (0.7-4.5); Lymphocytes % 15.5 % (10-50); Mean Corpuscular HGB Conc 33.3 g/dL (31.8-35.4); Mean Corpuscular Hemoglobin 32.3 pg (27.0-31.2); Mean Corpuscular Volume 96.8 fl (80-94); Mean Platelet Volume 9.7 fl (7.4-10.4); Monocytes # 0.7 K/mm3 (0.1-1.0); Monocytes % 6.8 % (1.7-9.3); Neutrophils # 8.2 K/mm3 (1.8-7.8); Neutrophils % 75.3 % (37.0-80.0); Platelet Count 147 K/mm3 (142-424); Red Blood Count 4.07 M/mm3 (4.60-6.20); Red Cell Distribution Width 14.2 % (11.5-17.5); White Blood Count 10.9 K/mm3 (4.8-10.8)
[2023-09-02 20:46] LABS: NT Pro Brain Natriuretic Pep. 1850 pg/mL (0-125)
[2023-09-02 20:48] LABS: Troponin I 0.02 ng/ml (0.00-0.034)
--- NOTE | 2023-09-02 20:50 | PC.NURSE ---
Pt transported to CT
[2023-09-02] MEDS: IOPAMIDOL-370 (76%);100ML BOTTLE 70 ML IV (21:04)
[2023-09-02] MEDS: SODIUM CHLORIDE 0.9% 10ML SYR (RAD ONLY) 10 ML IV (21:05)
[2023-09-02] MEDS: 0.9 % SODIUM CHLORIDE 50 ML VIAL IV (21:05)
[2023-09-02] MEDS: LACTATED RINGERS 1000ML 500 ML 999 ML IV (21:11)
[2023-09-02 22:00] LABS: VBG HCO3 23.6 mmol/L (23-30); VBG PCO2 43.9 mmol/L (35-51); VBG PH 7.35 mmol/L (7.31-7.41)
[2023-09-02 22:01] LABS: Lactate Venous 3.1 mmol/L (0.4-2.0)
== END 2023-09-02 23:09 | disposition home or self-care (01) ==
PROVIDERS: Emergency Provider Student in an Organized Health Care Education/Training Program; PCP Family Medicine
DX: I26.99 Other pulmonary embolism without acute cor pulmonale; R91.8 Other nonspecific abnormal finding of lung field; R61 Generalized hyperhidrosis; R06.00 Dyspnea, unspecified; E11.65 Type 2 diabetes mellitus with hyperglycemia; E87.1 Hypo-osmolality and hyponatremia; Z79.4 Long term (current) use of insulin; Z79.84 Long term (current) use of oral hypoglycemic drugs; Z79.01 Long term (current) use of anticoagulants; E78.5 Hyperlipidemia, unspecified; I10 Essential (primary) hypertension
CPT/HCPCS: 36415; 71275; 80053; 81240; 81241; 82784; 82803; 83880; 84484; 85025; 85301; 86146; 93005; 99285; Q9967

== ENCOUNTER 2023-09-07 11:07 | Outpatient (CLI) | payer MEDICARE, OTHER, SELFPAY ==
[2023-09-07 12:06] LABS: Basophils # 0.1 K/mm3 (0-0.2); Basophils % 0.5 % (0.1-2.0); Eosinophils # 0.2 K/mm3 (0.0-0.4); Eosinophils % 1.5 % (0.1-12.0); Hematocrit 39.7 % (42.0-52.0); Hemoglobin 12.8 g/dL (14.1-18.0); Lymphocytes # 1.5 K/mm3 (0.7-4.5); Mean Corpuscular HGB Conc 32.3 g/dL (31.8-35.4); Mean Corpuscular Hemoglobin 31.6 pg (27.0-31.2); Mean Corpuscular Volume 97.8 fl (80-94); Mean Platelet Volume 8.8 fl (7.4-10.4); Monocytes # 0.7 K/mm3 (0.1-1.0); Monocytes % 6.3 % (1.7-9.3); Neutrophils # 8.2 K/mm3 (1.8-7.8); Neutrophils % 77.7 % (37.0-80.0); Platelet Count 245 K/mm3 (142-424); Red Blood Count 4.06 M/mm3 (4.60-6.20); Red Cell Distribution Width 14.6 % (11.5-17.5); White Blood Count 10.5 K/mm3 (4.8-10.8)
[2023-09-07 12:55] LABS: Prostate Specific Ag, Diagnost 0.065 ng/ml (0.0-4.0)
== END 2023-09-07 23:59 | disposition home or self-care (01) ==
LOC: LAB 11:08
PROVIDERS: Internal Medicine Medical Oncology; PCP Family Medicine; Visit Provider Family Medicine
DX: Z85.46 Personal history of malignant neoplasm of prostate (principal)
CPT/HCPCS: 36415; 84153; 85025

== ENCOUNTER 2023-12-06 09:30 | Outpatient (CLI) | payer MEDICARE, OTHER, SELFPAY ==
[2023-12-06 18:37] LABS: Basophils % 0.4 % (0.1-2.0); Eosinophils # 0.1 K/mm3 (0.0-0.4); Eosinophils % 1.7 % (0.1-12.0); Hematocrit 46.8 % (42.0-52.0); Hemoglobin 14.9 g/dL (14.1-18.0); Lymphocytes # 1.4 K/mm3 (0.7-4.5); Lymphocytes % 19.7 % (10-50); Mean Corpuscular HGB Conc 31.8 g/dL (31.8-35.4); Mean Corpuscular Hemoglobin 30.4 pg (27.0-31.2); Mean Corpuscular Volume 95.6 fl (80-94); Mean Platelet Volume 9.7 fl (7.4-10.4); Monocytes # 0.7 K/mm3 (0.1-1.0); Monocytes % 9.9 % (1.7-9.3); Neutrophils % 68.2 % (37.0-80.0); Platelet Count 202 K/mm3 (142-424); Red Cell Distribution Width 14.3 % (11.5-17.5); White Blood Count 7.4 K/mm3 (4.8-10.8)
[2023-12-06 19:40] LABS: Alanine Aminotransferase 27 U/L (12-78); Albumin Level 3.7 g/dl (3.5-5.0); Albumin/Globulin Ratio 1.2 (1.1-1.8); Alkaline Phosphatase 87 U/L (38-126); Anion Gap 11.8 mEq/L (5-15); Aspartate Amino Transferase 28 U/L (17-59); Bilirubin,Total 0.6 mg/dl (0.2-1.3); Blood Urea Nitrogen 23 mg/dl (9-20); Calcium 9.9 mg/dl (8.4-10.2); Carbon Dioxide 27 mmol/L (22.0-30.0); Chloride 106 mmol/L (98-107); Chol/HDL Ratio 5.1 (1-3.5); Cholesterol 174 mg/dl (140-200); Estimated Glomerular Filt Rate 67 ml/min (>60); GFR (African American) 81 ML/MIN (>60); Glucose 134 mg/dl (74-100); HDL Cholesterol 34 mg/dl (40-60); Potassium 4.8 mmoL/L (3.5-5.1); Sodium 140 mmol/L (136-145); Total Protein,Serum 6.7 g/dl (6.3-8.2); Triglycerides 155 mg/dl (30-150); VLDL Cholesterol 31 mg/dL (0-40)
[2023-12-06 19:51] LABS: Direct LDL Cholesterol 115.44 mg/dL (100-129)
[2023-12-06 20:52] LABS: Prostate Specific Ag, Diagnost < 0.064 ng/ml (0.0-4.0)
[2023-12-07 01:38] LABS: Hemoglobin A1C 7.3 % (4.0-6.0)
[2023-12-07 08:54] LABS: Creatinine,Urine Random 24 mg/dL (Not Estab.); Microalbumin/Creatinine Ratio 26.2
== END 2023-12-06 23:59 | disposition home or self-care (01) ==
LOC: LAB.DROPOF 12-07 12:17
PROVIDERS: PCP Family Medicine; Visit Provider Family Medicine
DX: E11.9 Type 2 diabetes mellitus without complications (principal); Z79.4 Long term (current) use of insulin; Z85.46 Personal history of malignant neoplasm of prostate; Z79.84 Long term (current) use of oral hypoglycemic drugs
CPT/HCPCS: 80053; 80061; 82043; 82570; 83036; 84153; 85025

== ENCOUNTER 2023-12-07 12:20 | Outpatient (CLI) | payer MEDICARE, OTHER, SELFPAY ==
--- NOTE | 2023-12-07 12:20 | CT_ITS ---
FINAL REPORT TECHNIQUE: The patient was injected with IV contrast. Axial images were obtained through the chest in a PE protocol. 3-D reconstruction images were also performed. Individualized dose reduction techniques using automated exposure control or adjustment of the MA and/or KV according to patient's size were employed. CLINICAL HISTORY: RUL lesion HX PE COMPARISON: 09/02/2023 FINDINGS: Mediastinal vasculature is adequately opacified. No pulmonary artery filling defects are identified to suggest PE. There is no aortic dissection. There is a densely calcified subcarinal lymph node. There is no significant mediastinal mass or adenopathy. The heart size is normal. There is no pericardial or pleural effusion. The previously noted solid lesion in the medial left apex is no longer seen. The lungs are clear. Limited images of the upper abdomen demonstrate diffuse fatty infiltration of the liver. The gallbladder is absent. IMPRESSION: No pulmonary embolus or dissection. Resolution of previously noted medial left apical density. Fatty liver. Reviewed, Interpreted and Dictated by Nikolay Ashley MD Transcribed by Nichelle Maki Authenticated and [facility]
[2023-12-07] MEDS: 0.9 % SODIUM CHLORIDE 50 ML VIAL IV (13:05)
[2023-12-07] MEDS: IOPAMIDOL-370 (76%);100ML BOTTLE 75 ML IV (13:05)
[2023-12-07] MEDS: SODIUM CHLORIDE 0.9% 10ML SYR (RAD ONLY) 10 ML IV (13:05)
== END 2023-12-07 23:59 | disposition home or self-care (01) ==
LOC: RAD 12:20
PROVIDERS: PCP Family Medicine; Visit Provider Internal Medicine Pulmonary Disease
DX: I28.1 Aneurysm of pulmonary artery (principal)
CPT/HCPCS: 71275; Q9967

== ENCOUNTER 2024-02-01 13:33 | Outpatient (CLI) | payer MEDICARE, OTHER, SELFPAY ==
--- NOTE | 2024-02-01 13:33 | US_ITS ---
PROCEDURE INFORMATION: Exam: US Right Limited Joint or Other Non-Vascular Extremity Structure Exam date and time: 02/01/2024 1:54 PM Age: 68 years old Clinical indication: Mass or lump; Upper leg; Right; Additional info: Mass at upper right leg medial TECHNIQUE: Imaging protocol: US right limited joint or other nonvascular extremity structure. Real-time ultrasound with image documentation. Exam focused on the area of clinical interest. COMPARISON: No relevant prior studies available. FINDINGS: Soft tissues: Unremarkable. No loculated collections. Other findings: Ultrasonographic images of the soft tissues in questions/area of concern/palpable abnormality right upper late medially. Tiny hypoechoic structure in the soft tissues with adjacent mild edema measuring approximately 0.8 x 0.9 x 0.3 cm. Possible small focus of infection versus hematoma and less likely lymph node. Sebaceous cyst within the differential diagnosis although felt less likely. IMPRESSION: Ultrasonographic images of the soft tissues in questions/area of concern/palpable abnormality right upper late medially. Tiny hypoechoic structure in the soft tissues with adjacent mild edema measuring approximately 0.8 x 0.9 x 0.3 cm. Possible small focus of infection versus hematoma and less likely lymph node. Sebaceous cyst within the differential diagnosis although felt less likely. Follow-up if indicated
== END 2024-02-01 23:59 | disposition home or self-care (01) ==
LOC: RAD 13:33
PROVIDERS: PCP Family Medicine; Visit Provider Family Medicine
DX: M79.89 Other specified soft tissue disorders (principal)
CPT/HCPCS: 76882

== ENCOUNTER 2024-02-25 12:35 | Outpatient (CLI) | payer MEDICARE, OTHER, SELFPAY ==
--- NOTE | 2024-02-25 12:36 | MR_ITS ---
FINAL REPORT CLINICAL HISTORY: knot on medial aspect of leg. put marker on knot FINDINGS: Multiplanar MR imaging of the right thigh was performed without contrast. There is motion on many of the images which decreases the sensitivity of the exam. There is no evidence of fracture or bone marrow edema. There are postoperative changes in the knee which obscures some of the detail. No bony mass is identified. Musculature is intact. A marker was placed on the medial thigh. There is prominent subcutaneous fat in this region. No mass or abnormal fluid collection is seen. IMPRESSION: Prominent subcutaneous fat in the medial thigh at the region of interest. No mass or abnormal fluid collection. Reviewed, Interpreted and Dictated by Abraham Raymundo III, MD Transcribed by Veronica Barr Authenticated and [facility]
--- NOTE | 2024-02-25 13:06 | XR_ITS ---
FINAL REPORT CLINICAL HISTORY: RULE OUT METALLIC FOREIGN BODY FOR MRI FINDINGS: ORBITS: Looking up and looking down [place] views of the orbits were obtained to rule out a radiopaque foreign body prior to MRI. There is no radiopaque foreign body visualized. The sinuses appear well aerated without evidence of air-fluid levels. No acute bony abnormality is identified. IMPRESSION: No radiopaque foreign body visualized. Reviewed, Interpreted and Dictated by Abraham Raymundo III, MD Transcribed by Alma Piper Authenticated and . [facility]
== END 2024-02-25 23:59 | disposition home or self-care (01) ==
LOC: RAD 12:36
PROVIDERS: PCP Family Medicine; Visit Provider Surgery
DX: R22.41 Localized swelling, mass and lump, right lower limb (principal)
CPT/HCPCS: 70200; 73718

== ENCOUNTER 2024-02-28 06:30 | Day surgery (SDC) | payer MEDICARE, OTHER, SELFPAY ==
[2024-02-24 14:52] VITALS: BMI 42.7
[2024-02-28 06:55] VITALS: BP 142/67; PULSE 69; RESP 18; TEMP 36.2; O2SAT 96
--- NOTE | 2024-02-28 07:10 | EXP.ANES.CKL ---
[facility] Disclaimer: The information contained in this section may have been updated after the patient was seen, as this information can be updated by other users. Medical History Chronic dysfunction of both eustachian tubes Chronic cough Dyspnea on exertion Lung nodule Pulmonary artery aneurysm History of prostate cancer Cataract FH: cholecystectomy Prostate cancer Hyperlipidemia Hypertension Diabetes mellitus Surgical History H/O circumcision History of appendectomy H/O knee surgery Family History Mother Stroke Father Stroke Social History Smoking Status: Never smoker second hand exposure: No alcohol intake: never substance use type: denies use current occupational status: retired Travel in the last 8 weeks: None household members: spouse housing: house marital status: caffeine: Yes [facility] Anesthesia Checklist Patient Identification Patient Identification: Arm Band and Verbal (Name & ) Structural Data Admitted From: Home Planned Operative Procedure/s: Colonoscopy Consent for Planned Operative Procedure(s) Verified: Yes Verified Documents: Surgical Consent, History and Physical and Cardiac Clearance NPO Status Verified Time NPO: 00:00 Additional verifications Anesthesia Reactions: No Airway Assessment Mallampati Score:: Class III C-Spine Mobility Assessed: Yes TMJ Mobility Assessed: Yes Dentition: Dentures-poor fitting (Removed) Neurological Assessment Level of Consciousness: Awake Hx Seizures: No Numbness or tingling in extremities: No Anesthesia Plan Anesthesia Risk discussed: Yes Anesthesia Plan: Verified ASA Class: III Anesthesia Type: MAC
[2024-02-28] MEDS: LACTATED RINGERS 1000ML 1,000 ML 25 ML IV (07:11)
[2024-02-28 07:14] LABS: POC Glucose,Bedside 117 (70-110)
[2024-02-28 07:31] VITALS: O2SAT 98
--- NOTE | 2024-02-28 07:32 | P.HP_ITS ---
History of Present Illness *Admission Date: 02/28/24 *Reason for visit:: Surveillance-personal history of adenomatous polyps *History of present illness: Mr. Zapata is a 68-year-old gentleman who is here for surveillance colonoscopy secondary to a personal history of adenomatous polyps. The examination is deemed medically necessary for colonoscopy. The patient has been seen, interviewed and examined prior to the procedure by both myself and the anesthesia provider. [facility] Disclaimer: The information contained in this section may have been updated after the patient was seen, as this information can be updated by other users. Medical History Chronic dysfunction of both eustachian tubes Chronic cough Dyspnea on exertion Lung nodule Pulmonary artery aneurysm History of prostate cancer Cataract FH: cholecystectomy Prostate cancer Hyperlipidemia Hypertension Diabetes mellitus Surgical History H/O circumcision History of appendectomy H/O knee surgery Family History Mother Stroke Father Stroke Social History (Updated 02/28/24 @ 07:12 by Deanne Alexander CRNA) Smoking Status: Never smoker second hand exposure: No alcohol intake: never substance use type: denies use current occupational status: retired Travel in the last 8 weeks: None household members: spouse housing: house marital status: caffeine: Yes Other Medical History Have you received the Flu Vaccine for this season: No Have you received the Pneumonia Vaccine: No Review of Systems Review of Systems Review of systems (narrative): Negative *Cardiovascular Comments: Negative *Gastrointestinal Comments: Negative *Genitourinary Comments: Negative *Musculoskeletal Comments: Negative *Neurologic Comments: Negative Meds Home Medications and Allergies Home Medications ?Medication ?Instructions ?Recorded ?Confirmed ?Type pen needle, diabetic 32 gauge x #100 ea 05/24/23 02/15/24 Rx (Droplet Pen Needle) atorvastatin 80 mg tablet 80 mg PO DAILY #90 tabs 10/07/23 02/28/24 Rx bisoprolol fumarate 5 mg tablet 2.5 mg (1/2 x 5 mg) PO DAILY #90 10/07/23 02/28/24 Rx tabs furosemide 20 mg tablet (Lasix) 20 mg PO DAILY #90 tabs 10/07/23 02/28/24 Rx rivaroxaban 20 mg tablet (Xarelto) 20 mg PO DAILY #90 tabs 10/07/23 02/28/24 Rx fenofibrate 160 mg tablet 160 mg PO DAILY 90 days #90 tabs 12/27/23 02/28/24 Rx insulin glargine U-300 conc 300 160 unit (0.5333 mL) SQ DAILY 12/27/23 02/15/24 Rx unit/mL (3 mL) subcutaneous pen Diabetes 90 days #47.997 mL (Toujeo Max U-300 SoloStar) omeprazole 20 mg capsule,delayed 20 mg PO DAILY 90 days #90 caps 12/27/23 02/28/24 Rx release metformin 500 mg tablet 500 mg PO BID 90 days #180 tabs 01/27/24 02/28/24 Rx famotidine 40 mg tablet 40 mg PO DAILY #30 tabs 02/01/24 02/28/24 Rx blood sugar diagnostic (Accu-Chek #100 ea 02/10/24 02/15/24 Rx Ashly Plus test strips) New Prescriptions to Start Prescriptions: Allergies Allergy/AdvReac Type Severity Reaction Status Date / Time acetaminophen (From Lortab) Allergy Irritable Verified 02/28/24 06:50 hydrocodone (From Lortab) Allergy Irritable Verified 02/28/24 06:50 Exam Data for Last 24 hours Vital signs and Labs for Last 24 Hours: Temp Pulse Resp BP Pulse Ox O2 Del Method O2 Flow Rate 97.1 F L 69 18 142/67 H 96 Nasal Cannula 5 02/28/24 06:55 02/28/24 06:55 02/28/24 06:55 02/28/24 06:55 02/28/24 06:55 02/28/24 07:31 02/28/24 07:31 Laboratory Results - last 24 hr 02/28/24 07:02: POC Glucose 117 H *Routine HEENT Exam Head: Present normocephalic Eye: Present EOMI and PERRL ENT: Present mucous membranes moist *Routine Neck Exam Neck: Present supple *Routine Respiratory Exam Respiratory: Present CTA bilaterally *Routine Cardiovascular Exam Cardiovascular: Present RRR *Routine Abdominal Exam Abdominal: Present soft and normoactive bowel sounds; Absent tenderness *Routine Rectal Exam Rectal:: deferred *Routine Genitalia Exam Genitalia:: deferred *Routine Extremities Exam Extremities: Absent cyanosis, clubbing or edema *Routine Skin Exam Skin: Present warm; Absent rash *Routine Neurological Exam Neurological: Present alert and oriented X3 Assessment and Plan *Assessment and plan (1) Personal history of adenomatous and serrated colon polyps: Status: Acute Category: Medical Code(s): Z86.0101 - Personal history of adenomatous and serrated colon polyps Plan A/P: 1. Personal history of adenomatous colon polyps is the preprocedural diagnosis. The patient will be anesthetized/sedated using MAC sedation. The patient has been seen and examined. Cardiac and lung assessment prior to the examination is stable. Proceed with planned colonoscopy
--- NOTE | 2024-02-28 07:34 | [facility]H.PROCNOTE ---
[facility] Procedure Note Date: 02/28/24 Time: 07:50 Procedure Note:: Colonoscopy Procedure Report: Colonoscopy with cold snare polypectomy Endoscopist: Kaushal Montoya II, MD Referring physician: Dion Butts MD Date of Procedure: February 28, 2024 Equipment: Olympus 190 variable stiffness pediatric colonoscope Sedation: MAC sedation Indication: Mr. Zapata is a 68-year-old gentleman who is here for follow-up surveillance colonoscopy secondary to a personal history of adenomatous polyps. He is uncertain when his last colonoscopy was but it was more than 5 years ago. He reports no abdominal pain, weight loss, change in his bowel habits or rectal bleeding. He will occasionally get a spot of blood from internal hemorrhoids. He reports no family history of colon cancer. He does have a personal history of prostate cancer diagnosed 2 years ago. Procedure: Prior to the procedure, a history and physical exam was performed, and patient's medications and allergies were reviewed. The risks, benefits and alternatives of the sedation and procedure were discussed with the patient. All questions were answered and informed consent was obtained. The patient was brought to the procedure room. Patient identification and proposed procedure were verified by the physician and the nurse. The patient was placed in a left lateral decubitus position and the scope was passed under direct vision. Throughout the procedure, the patient's blood pressure, pulse, and oxygen saturations were monitored continuously. The colonoscopy was accomplished without difficulty. The patient tolerated the procedure well. Findings: On digital rectal examination there was normal rectal tone. There were no external hemorrhoids. The colonoscope was introduced through the anal canal to the rectum and advanced to the cecum. The ileocecal valve and appendiceal orifice were identified. The scope was advanced a short distance into the ileum which appeared grossly normal. The scope was then withdrawn into the colon. The cecum, ascending and transverse colon were normal. There were 2 polyps (descending x 1 (6 mm) and rectosigmoid x 1 (3 mm)). These were removed via cold snare polypectomy. The remainder of the descending, sigmoid and rectum were normal. Upon retroflexion, there were grade 2 internal hemorrhoids. The preparation was excellent throughout with Cyril Preparation Score of 9. The cecal time was 11 minutes. Impression: 1. Colonic polyps x 2 2. Grade 2 internal hemorrhoids Plan: I will follow-up the polyp histology and recommend repeat surveillance colonoscopy again in 7 years if the polyps are adenomatous. I would encourage psyllium bulking fiber supplementation on a maintenance basis.
[2024-02-28 07:52] VITALS: BP 109/49; PULSE 74; RESP 16; TEMP 36.4; O2SAT 93
[2024-02-28 08:02] VITALS: BP 108/46; PULSE 77; RESP 16; O2SAT 94
[2024-02-28 08:12] VITALS: BP 124/65; PULSE 69; RESP 16; O2SAT 94
[2024-02-28 08:22] VITALS: BP 124/49; PULSE 71; RESP 16; O2SAT 95
== END 2024-02-28 08:41 | disposition home or self-care (01) ==
PROVIDERS: PCP Family Medicine; Visit Provider Internal Medicine Gastroenterology
PROC: (CPT 45385; principal; 2024-02-28 07:30)
DX: K63.5 Polyp of colon (principal); K64.1 Second degree hemorrhoids; Z86.0101 Personal history of adenomatous and serrated colon polyps; Z85.46 Personal history of malignant neoplasm of prostate; E11.8 Type 2 diabetes mellitus with unspecified complications; Z79.4 Long term (current) use of insulin; Z79.84 Long term (current) use of oral hypoglycemic drugs
CPT/HCPCS: 45385; 82962; 88305; J7120

== ENCOUNTER 2024-03-17 07:30 | Outpatient (CLI) | payer MEDICARE, OTHER, SELFPAY ==
[2024-03-17 08:15] VITALS: PULSE 67; PULSE 71
[2024-03-17] MEDS: ALBUTEROL 0.083% 2.5 MG/3 ML NEB IH (08:15)
== END 2024-03-17 23:59 | disposition home or self-care (01) ==
LOC: RT 07:31
PROVIDERS: PCP Family Medicine; Visit Provider Internal Medicine Pulmonary Disease
DX: R06.02 Shortness of breath (principal)
CPT/HCPCS: 94060; 94618; 94640; 94726; 94729; J7613

== ENCOUNTER 2024-03-17 10:52 | Outpatient (CLI) | payer MEDICARE, OTHER, SELFPAY ==
[2024-03-17 11:52] LABS: C-Reactive Protein 4.1 mg/L (0-4)
[2024-03-18 13:21] LABS: Anti-Cyclic Citrullinated Pept 7 units (0-19); Antinuclear Antibodies (ANA) Negative (Negative)
[2024-03-23 16:35] LABS: Rheumatoid Factor IGM < 7 U (<7)
== END 2024-03-17 23:59 | disposition home or self-care (01) ==
PROVIDERS: PCP Family Medicine; Visit Provider Internal Medicine Pulmonary Disease
DX: J84.9 Interstitial pulmonary disease, unspecified (principal); R06.09 Other forms of dyspnea; J98.4 Other disorders of lung
CPT/HCPCS: 36415; 86038; 86140; 86200; 86431; 94060; 94618; 94640; 94726; 94729; J7613

== ENCOUNTER 2024-03-20 07:18 | Outpatient (CLI) | payer MEDICARE, OTHER, SELFPAY ==
--- NOTE | 2024-03-20 | CA_ITS ---
APPROVED REPORT Exam: Pharmacologic Technologist: Jacki Potter Ht: 5 ft 9 in Wt: 295 lbs BSA: 2.44 m2 HR: 63 bpm BP: 127/75 mmHg Stress Test Details Test: Lexiscan HR Resting HR: 63 bpm Max Heart Rate (APMHR): 152.036393 bpm Max HR Achieved: 86 bpm Target HR (85% APMHR): 129.999071 bpm % of APMHR: 56.58 Recovery HR: 77 bpm BP Resting BP: 127.0/75.0 mmHg Max BP: 141.0/78.0 mmHg Recovery BP: 141.0/78.0 mmHg ECG Stress ECG Conclusion Symptoms: No chest pain. Shortness of breath with Lexiscan. Arrhythmias/Ectopy: - ST-T Changes: - Unremarkable with Lexiscan infusion. Electronically signed by : Esha Remy MD 03/21/2024 13:07:15
--- NOTE | 2024-03-20 07:26 | NM_ITS ---
APPROVED REPORT Exam: Nuclear Stress Test Indication: SOB, HTN, DM, High cholesterol Patient Location: Outpatient Stress Tech: Jacki Potter NM Tech:Christy Garcia, ARRT, RT (R)(N) Ht: 5 ft 9 in Wt: 290 lbs HR: 65 bpm BP: 127/75 mmHg BSA: 2.42 m2 TID: 1.34 BMI: 42.8 History: SOB, HTN, DM, High cholesterol Procedure: Patient received 0.4 mg of intravenous Lexiscan, resting heart rate 65 bpm, resting blood pressure 127/75 mmHg, with Lexiscan maximum heart rate achieved was 89 bpm which is % of the maximum predicted heart rate and blood pressure was 141/78 mmHg. With Lexiscan, patient denied any complaint of chest pain. Cardiac Stress and Resting SPECT Images: Cardiac Stress and Resting SPECT images were obtained using technetium 99m Myoview 32.4 mCi stress and 10.29 mCi at rest. Resting and stress imaging in supine and prone positions demonstrate no evidence of fixed or reversible perfusion defects. There is increase in transient ischemic dilatation ratio (TID 1.34), suggestive of possible multivessel disease or balanced ischemia. Gated imaging demonstrates normal global and regional LV systolic function. LVEF is calculated at 58%. Conclusion: No evidence of fixed or reversible perfusion defects. There is increase in transient ischemic dilatation ratio (TID 1.34), suggestive of possible multivessel disease or balanced ischemia. Gated imaging demonstrates normal global and regional LV systolic function. LVEF is calculated at 58%. Electronically signed by : Esha Remy MD 03/21/2024 13:08:30
[2024-03-20] MEDS: REGADENOSON 0.4MG/5ML SYRINGE 0.4 MG IV (08:57)
[2024-03-20] MEDS: ISOTOPE MYOVIEW (PER STUDY) 1 DOSE IV (08:57)
[2024-03-20] MEDS: SODIUM CHLORIDE 0.9% 10ML SYR (RAD ONLY) 10 ML IV ×2 (08:57)
--- NOTE | 2024-03-20 08:58 | CA_ITS ---
APPROVED REPORT EXAM: Comprehensive 2D, Doppler, and color-flow Echocardiogram [employer] Consultant: Fatou Billy CRT Ht: 5 ft 9 in Wt: 295lbs BSA: 2.44 BP: 138/80 mmHg Indications: Pre-Op assessment, diabetes, Obesity, Dyspnea, Hyperlipidemia, Hypertension/HDD 2D Dimensions LA Volume 38.20 mL LA Volume Index 15.30 mL/m2 (M/F) 16-34 M-Mode Dimensions RVDd 2.74 cm (0.9-2.6) LA Diam 3.08 cm (1.9-4.0) LVDd 4.96 cm (3.5-5.7) LVDs 3.27 cm (3.5-5.7) IVSd 1.57 cm (0.6-1.1) PWd 0.85 cm (0.6-1.1) EF (Teich) 62.80% FS 34.10% EDV (Teich) 116.10 mL TAPSE 2.26 (<1.7) ESV (Teich) 43.20 mL LV Diastology E Decel Time 207 (160-240 msec) E/A Ratio 0.81 MED A' 13.20 cm/s LAT A' 11.00 cm/s Aortic Valve AO Peak GR. 7.90 mmHg Mitral Valve MV A Velocity 95.0 (40-130 cm/s) E/A Ratio 0.81 Pulmonary Valve PV Peak Velocity 99.0 (50-150 cm/s) Tricuspid Valve TR P. Velocity 148.00 cm/s RAP Estimate 10.00 mmHg RVSP 18.80 mmHg Left Ventricle The left ventricle is normal size. The left ventricular systolic function is normal. The left ventricular ejection fraction is within the normal range. There is normal left ventricular wall thickness. There is normal LV segmental wall motion. The left ventricular diastolic function is normal. LVEF is 55%. Right Ventricle The right ventricle is normal size. The right ventricular systolic function is normal. Atria The left atrium size is normal. The right atrium size is normal. There is no Doppler evidence of interatrial shunt. Aortic Valve The aortic valve is mildly thickened. There is no aortic valvular stenosis. No aortic regurgitation is present. Mitral Valve The mitral valve is normal in structure. No evidence of mitral valve stenosis. Trace mitral regurgitation. Tricuspid Valve Tricuspid valve is grossly normal in structure and function. Trace tricuspid regurgitation. There is insufficient TR jet to estimate RVSP. Pulmonic Valve The pulmonary valve is normal in structure. Trace pulmonic regurgitation. Great Vessels The aortic root is normal in size. The ascending aorta is normal in size. IVC is normal in size and collapses >50% with inspiration. Pericardium There is no pericardial effusion. Other Information Study Quality: Fair Conclusion Normal biventricular systolic function. No significant valvular stenosis or regurgitation. Electronically signed by : Esha Remy MD 03/26/2024 20:30:03
== END 2024-03-20 23:59 | disposition home or self-care (01) ==
LOC: RAD 07:19
PROVIDERS: PCP Family Medicine; Visit Provider Physician Assistant
DX: R06.00 Dyspnea, unspecified (principal); R06.09 Other forms of dyspnea
CPT/HCPCS: 78452; 93017; 93018; 93306; A9502; J2785

== ENCOUNTER 2024-04-18 07:13 | Day surgery (SDC) | payer MEDICARE, OTHER, SELFPAY ==
[2024-04-18] VITALS (12 sets, daily range): BP systolic 115–157; BP diastolic 60–103; PULSE 61–78; RESP 14–20; TEMP 36.7; O2SAT 92–97; BMI 43.5
[2024-04-18 07:49] LABS: Basophils % 0.5 % (0.1-2.0); Eosinophils # 0.1 K/mm3 (0.0-0.4); Eosinophils % 1.4 % (0.1-12.0); Hematocrit 42.6 % (42.0-52.0); Hemoglobin 14.2 g/dL (14.1-18.0); Lymphocytes # 0.9 K/mm3 (0.7-4.5); Lymphocytes % 15.4 % (10-50); Mean Corpuscular HGB Conc 33.3 g/dL (31.8-35.4); Mean Corpuscular Hemoglobin 29.2 pg (27.0-31.2); Mean Corpuscular Volume 87.5 fl (80-94); Mean Platelet Volume 10.3 fl (7.4-10.4); Monocytes % 17.3 % (1.7-9.3); Neutrophils # 3.7 K/mm3 (1.8-7.8); Neutrophils % 64.7 % (37.0-80.0); Platelet Count 169 K/mm3 (142-424); Red Blood Count 4.87 M/mm3 (4.60-6.20); White Blood Count 5.7 K/mm3 (4.8-10.8)
--- NOTE | 2024-04-18 07:57 | IR_ITS ---
APPROVED REPORT Patient Location: Outpatient PROCEDURES Left heart catheterization Left ventriculogram Selective coronary angiogram INDICATION Abnormal Myoview, Angina pectoris Informed consent was obtained prior to the procedure. COMPLICATIONS None Estimated Blood Loss: Less than 10 mls TECHNIQUE One percent lidocaine used to anesthetize the right anterior aspect of the wrist. The right radial artery was accessed via the Seldinger technique. A 6 Welsh sheath was placed in the right radial artery. 2.5 mg of Verapamil, 800 mcg of nitroglycerin, 1mg Lidocaine and 5000 U Heparin were given through the arterial sheath. The 6 Welsh JL 3 was also used to perform left heart catheterization, left ventriculogram and selective coronary angiogram. At the end of the procedure the sheath was removed good hemostasis was achieved using Traclet band, patient was transferred to the postop holding area in stable condition. ANGIOGRAPHIC RESULTS The left main artery Normal The left anterior descending artery Has a proximal eccentric 20 to 30% stenosis. The entire vessel is accompanied by MICHEL II flow The circumflex artery Large nondominant with MICHEL II flow and otherwise angiographically normal The right coronary artery Dominant normal The YU ventriculogram reveals Normal 65% The left ventricular end-diastolic pressure Elevated at 25 to 30 mmHg IMPRESSION Mild proximal LAD disease as described above Elevated LVEDP accompanied by slow flow consistent with endothelial dysfunction possibly combined with diastolic dysfunction Normal ejection fraction PLAN 1. Risk factor modification 2. Treatment of diastolic dysfunction Electronically signed by : Andrey Owens MD 04/18/2024 10:19:57
[2024-04-18 08:12] LABS: Anion Gap 12.3 mEq/L (5-15); Blood Urea Nitrogen 20 mg/dl (9-20); Calcium 9.5 mg/dl (8.4-10.2); Carbon Dioxide 29 mmol/L (22.0-30.0); Chloride 101 mmol/L (98-107); Creatinine Clearance Estimated 58 mL/min (50-200); Estimated Glomerular Filt Rate 60 ml/min (>60); GFR (African American) 73 ML/MIN (>60); Glucose 164 mg/dl (74-100); Potassium 4.3 mmoL/L (3.5-5.1); Sodium 138 mmol/L (136-145)
[2024-04-18] MEDS: VERAPAMIL 2.5MG/ML 2ML VIAL 2.5 MG IV (09:44)
[2024-04-18] MEDS: LIDOCAINE 1% 10ML MDV 20 ML IJ (09:44)
[2024-04-18] MEDS: FENTANYL 100MCG/2ML VIAL 25 MCG IV (09:45)
[2024-04-18] MEDS: HEPARIN 1,000 UNITS/ML 10ML VIAL (CATH LAB) 10000 UNIT IV (09:45)
[2024-04-18] MEDS: MIDAZOLAM HCL 1MG/ML 5ML VIAL 1 MG IV (09:45)
[2024-04-18] MEDS: diphenhydrAMINE 50MG/ML VIAL 50 MG IV (09:46)
[2024-04-18] MEDS: 0.9 % SODIUM CHLORIDE 500 ML 25 ML IV (09:46)
[2024-04-18] MEDS: HEPARIN 1,000 UNITS/500ML NS (CATH LAB) 3000 UNIT IV (09:46)
[2024-04-18] MEDS: NITROGLYCERIN 800MCG/8ML SYR (CATH LAB) 800 MCG IA (09:46)
[2024-04-18] MEDS: IOPAMIDOL-370 (76%);100ML BOTTLE 50 ML IV (10:23)
== END 2024-04-18 12:52 | disposition home or self-care (01) ==
PROVIDERS: PCP Family Medicine; Visit Provider Internal Medicine
DX: I25.118 Atherosclerotic heart disease of native coronary artery with other forms of angina pectoris (principal); I26.99 Other pulmonary embolism without acute cor pulmonale; R06.09 Other forms of dyspnea; K21.9 Gastro-esophageal reflux disease without esophagitis; E78.5 Hyperlipidemia, unspecified; I10 Essential (primary) hypertension; E11.69 Type 2 diabetes mellitus with other specified complication; R94.39 Abnormal result of other cardiovascular function study; Z79.01 Long term (current) use of anticoagulants; Z79.4 Long term (current) use of insulin; Z79.899 Other long term (current) drug therapy
CPT/HCPCS: 36415; 80048; 85025; 93458; 99152; C1725; C1769; J1200; J1644; J2250; J3010; Q9967

== ENCOUNTER 2024-04-26 14:31 | Outpatient (CLI) | payer MEDICARE, OTHER, SELFPAY ==
[2024-04-26 15:19] LABS: Anion Gap 15.2 mEq/L (5-15); Blood Urea Nitrogen 37 mg/dl (9-20); Carbon Dioxide 30 mmol/L (22.0-30.0); Chloride 95 mmol/L (98-107); Estimated Glomerular Filt Rate 38 ml/min (>60); GFR (African American) 45 ML/MIN (>60); Glucose 197 mg/dl (74-100); Potassium 5.2 mmoL/L (3.5-5.1); Sodium 135 mmol/L (136-145)
== END 2024-04-26 23:59 | disposition home or self-care (01) ==
PROVIDERS: PCP Family Medicine; Visit Provider Nurse Practitioner Family
DX: I50.30 Unspecified diastolic (congestive) heart failure (principal); I26.99 Other pulmonary embolism without acute cor pulmonale; I10 Essential (primary) hypertension; R06.09 Other forms of dyspnea; K21.9 Gastro-esophageal reflux disease without esophagitis; E11.69 Type 2 diabetes mellitus with other specified complication; E78.5 Hyperlipidemia, unspecified; Z79.4 Long term (current) use of insulin; Z79.01 Long term (current) use of anticoagulants
CPT/HCPCS: 36415; 80048

== ENCOUNTER 2024-05-02 08:20 | Outpatient (CLI) | payer MEDICARE, OTHER, SELFPAY ==
[2024-05-02 13:46] LABS: Chloride 101 mmol/L (98-107); Potassium 5.1 mmoL/L (3.5-5.1); Sodium 134 mmol/L (136-145)
[2024-05-02 13:49] LABS: Anion Gap 14.1 mEq/L (5-15); Blood Urea Nitrogen 39 mg/dl (9-20); Calcium 9.8 mg/dl (8.4-10.2); Carbon Dioxide 24 mmol/L (22.0-30.0); Estimated Glomerular Filt Rate 50 ml/min (>60); GFR (African American) 61 ML/MIN (>60); Glucose 309 mg/dl (74-100)
== END 2024-05-02 23:59 | disposition home or self-care (01) ==
PROVIDERS: PCP Family Medicine; Visit Provider Physician Assistant
DX: I51.89 Other ill-defined heart diseases (principal); I50.31 Acute diastolic (congestive) heart failure; I25.10 Atherosclerotic heart disease of native coronary artery without angina pectoris; R06.09 Other forms of dyspnea; E78.5 Hyperlipidemia, unspecified; I10 Essential (primary) hypertension; E11.69 Type 2 diabetes mellitus with other specified complication; Z79.4 Long term (current) use of insulin
CPT/HCPCS: 36415; 80048

== ENCOUNTER 2024-05-10 08:10 | Outpatient (CLI) | payer MEDICARE, OTHER, SELFPAY ==
[2024-05-10 09:24] LABS: Collection Time,Urine 24 hours; Total Volume,Urine 6150 mL (250-2400)
[2024-05-10 09:25] LABS: Chloride 96 mmol/L (98-107)
[2024-05-10 09:26] LABS: Potassium 4.7 mmoL/L (3.5-5.1); Sodium 136 mmol/L (136-145)
[2024-05-10 09:26] LABS: Patient Height,Urine 68 inches
[2024-05-10 09:29] LABS: Anion Gap 21.7 mEq/L (5-15); Blood Urea Nitrogen 38 mg/dl (9-20); Calcium 10.1 mg/dl (8.4-10.2); Carbon Dioxide 23 mmol/L (22.0-30.0); Estimated Glomerular Filt Rate 50 ml/min (>60); GFR (African American) 61 ML/MIN (>60); Glucose 271 mg/dl (74-100)
[2024-05-10 09:34] LABS: NT Pro Brain Natriuretic Pep. 29.1 pg/mL (0-125)
[2024-05-10 09:42] LABS: Creatinine,Urine Random 11 mg/dL (Not Estab.)
[2024-05-10 09:43] LABS: Microalbumin < 6.000 mg/L (0-16.7)
[2024-05-10 10:15] LABS: Total Protein 24 Hour,Urine 369 mg/24 hr (40-90)
[2024-05-10 10:16] LABS: Creatinine 24 Hour,Urine 2214 mg/24hr (630-2500); Creatinine,Urine Random 36 mg/dL (Not Estab.)
[2024-05-10 10:45] LABS: Creatinine Clearance Urine 79.1 mL/min (85-125); Patient Weight,Urine 295 lbs
== END 2024-05-10 23:59 | disposition home or self-care (01) ==
LOC: LAB 08:11
PROVIDERS: PCP Family Medicine; Visit Provider Physician Assistant
DX: I25.10 Atherosclerotic heart disease of native coronary artery without angina pectoris (principal); I50.31 Acute diastolic (congestive) heart failure; I51.89 Other ill-defined heart diseases; Z79.01 Long term (current) use of anticoagulants; I26.99 Other pulmonary embolism without acute cor pulmonale; R06.09 Other forms of dyspnea; K21.9 Gastro-esophageal reflux disease without esophagitis; E78.5 Hyperlipidemia, unspecified; I10 Essential (primary) hypertension; E11.69 Type 2 diabetes mellitus with other specified complication; Z79.4 Long term (current) use of insulin; R39.89 Other symptoms and signs involving the genitourinary system; I50.30 Unspecified diastolic (congestive) heart failure
CPT/HCPCS: 36415; 80048; 82043; 82570; 82575; 83880; 84155

== ENCOUNTER 2024-05-16 09:26 | Outpatient (CLI) | payer MEDICARE, OTHER, SELFPAY ==
[2024-05-16 16:35] LABS: Basophils % 0.4 % (0.1-2.0); Eosinophils # 0.2 K/mm3 (0.0-0.4); Eosinophils % 1.9 % (0.1-12.0); Hematocrit 44.2 % (42.0-52.0); Hemoglobin 13.5 g/dL (14.1-18.0); Lymphocytes # 2.2 K/mm3 (0.7-4.5); Lymphocytes % 26.8 % (10-50); Mean Corpuscular HGB Conc 30.5 g/dL (31.8-35.4); Mean Corpuscular Volume 91.7 fl (80-94); Mean Platelet Volume 11.2 fl (7.4-10.4); Monocytes % 12.1 % (1.7-9.3); Neutrophils # 4.7 K/mm3 (1.8-7.8); Neutrophils % 58.4 % (37.0-80.0); Platelet Count 198 K/mm3 (142-424); Red Blood Count 4.82 M/mm3 (4.60-6.20); Red Cell Distribution Width 13.9 % (11.5-17.5); White Blood Count 8.1 K/mm3 (4.8-10.8)
[2024-05-16 17:54] LABS: Alanine Aminotransferase 31 U/L (12-78); Albumin Level 4.1 g/dl (3.5-5.0); Alkaline Phosphatase 86 U/L (38-126); Anion Gap 16.1 mEq/L (5-15); Aspartate Amino Transferase 34 U/L (17-59); Bilirubin,Total 0.4 mg/dl (0.2-1.3); Blood Urea Nitrogen 31 mg/dl (9-20); Calcium 9.6 mg/dl (8.4-10.2); Carbon Dioxide 24 mmol/L (22.0-30.0); Chloride 105 mmol/L (98-107); Chol/HDL Ratio 7.4 (1-3.5); Cholesterol 155 mg/dl (140-200); Estimated Glomerular Filt Rate 50 ml/min (>60); GFR (African American) 61 ML/MIN (>60); Globulin 2.1 g/dL (1.3-3.2); Glucose 115 mg/dl (74-100); HDL Cholesterol 21 mg/dl (40-60); Potassium 5.1 mmoL/L (3.5-5.1); Sodium 140 mmol/L (136-145); Total Protein,Serum 6.2 g/dl (6.3-8.2); Triglycerides 337 mg/dl (30-150); VLDL Cholesterol 67 mg/dL (0-40)
[2024-05-16 18:05] LABS: Direct LDL Cholesterol 78.12 mg/dL (100-129)
[2024-05-16 18:24] LABS: Prostate Specific Ag, Diagnost 0.065 ng/ml (0.0-4.0)
[2024-05-16 18:36] LABS: HIV Combo NEGATIVE (Negative)
[2024-05-16 18:45] LABS: Hepatitis C Ab Qual. W/ RFX NEGATIVE (Negative)
[2024-05-16 20:01] LABS: Hemoglobin A1C 8.4 % (4.0-6.0)
== END 2024-05-16 23:59 | disposition home or self-care (01) ==
LOC: LAB.DROPOF 05-17 09:27
PROVIDERS: PCP Family Medicine; Visit Provider Family Medicine
DX: Z11.4 Encounter for screening for human immunodeficiency virus [HIV] (principal); Z11.59 Encounter for screening for other viral diseases; E11.69 Type 2 diabetes mellitus with other specified complication; Z79.4 Long term (current) use of insulin; C61 Malignant neoplasm of prostate; I10 Essential (primary) hypertension
CPT/HCPCS: 80053; 80061; 83036; 84153; 85025; 86803; 87389

== ENCOUNTER 2024-05-19 10:37 | Outpatient (CLI) | payer MEDICARE, OTHER, SELFPAY ==
--- NOTE | 2024-05-19 10:38 | CT_ITS ---
FINAL REPORT TECHNIQUE: Axial CT imaging of the chest was performed without contrast. Coronal and sagittal reconstructed images were obtained and reviewed. Supine inspiration and expiration and prone inspiration hi-resolution images were obtained and reviewed. This study was performed with techniques to keep radiation doses as low as reasonably achievable, (ALARA). Individualized dose reduction techniques using automated exposure control or adjustment of mA and/or kV according to the patient's size were employed. CLINICAL HISTORY: Shortness of breath COMPARISON: CTA from 12/07/2023 FINDINGS: CT CHEST WITHOUT CONTRAST There is no axillary adenopathy. There is no hilar or mediastinal mass or adenopathy. Heart size is normal. There is no pericardial or pleural effusion. There is no suspicious pulmonary nodule or infiltrate identified. There is no evidence of bronchiectasis. Limited images of the upper abdomen show fatty infiltration of the liver. IMPRESSION: No evidence of diffuse interstitial lung disease. Reviewed, Interpreted and Dictated by Lucy Causey MD Transcribed by Deanna Shin Authenticated and . [facility]
== END 2024-05-19 23:59 | disposition home or self-care (01) ==
LOC: RAD 10:38
PROVIDERS: PCP Family Medicine; Visit Provider Internal Medicine Pulmonary Disease
DX: J84.9 Interstitial pulmonary disease, unspecified (principal)
CPT/HCPCS: 71250

== ENCOUNTER 2024-10-18 07:32 | Outpatient (CLI) | payer MEDICARE, OTHER, SELFPAY ==
--- OUTSIDE RECORDS SUMMARY | 2017-12-04 20:00 | XMS_ITS | Continuity of Care Document ---
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 [address], [place], [id number] , [place]. tel: [phone] Referring Provider: Evans Mays, [address] [facility] [place], [address]. tel:[phone] [facility], [address] [place], [id number], [place] tel:[phone] [facility] Inpatient No Information 8 Juan Duron. [address] [place], [place], [id number] , [place]. [phone] Referring Provider: Evans Mays, [address] [place], [address]. tel:[phone] Family History Family Member Type Diagnosis Age At Onset No Information Payers Payer name Insurance type Covered republican ID Authoriza tion(s) Medicare Part B [id number] Medicaid [id number] Social History Type Description Quantity Date Captured [...]
--- OUTSIDE RECORDS SUMMARY | 2024-10-18 07:35 | XMS_ITS | Data Portability ---
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 PSA continues to down trend. Monitor lower urinary symptoms. Medical management of erectile dysfunction with phosphodiesterase inhibitor, sildenafil and tadalafil. [email or web address] Not available 09/07/2022 08:50:30 02/11/2023 02/11/2023 PSA continues to down trend. Check PSA with order provided at appt to be performed at earliest convenience. Monitor lower urinary symptoms. Not available 02/14/2023 10:15:05 09/09/2023 09/09/2023 PSA continues to down trend. Monitor lower urinary symptoms. Follow-up in 6 months. [email or web address] Not available 09/12/2023 11:51:15 02/24/2024 02/24/2024 Continue to betty tor PSA trend and lower urinary symptoms. If the lesion of the penis fails to resolve or worsens we will consider biopsy. [email or web address] Not available 02/26/2024 11:52:48 05/25/2024 05/25/2024 Continue to betty tor PSA trend and lower urinary symptoms. If the lesion of the penis fails to resolve or worsens we will consider biopsy. [email or web address] Not available 06/04/2024 19:57:58 Plan of Treatment Reminders Order Date Submit Date Provider Last Modified By Organization Details Last Modified Time Details Appointments RECHECK 2024 01:30P M BRITT OHARA MD Not available Not available Not available RECHECK 2024 09:30A M ELIZA PADILLA MD Not available Not available Not available Lab urinalysi s panel, auto 2024 025 [email or web address] [facility] With [address] [place], [place], [address], 06/04/2024 19:58:50 urinalysi s panel, auto 2023 024 [email or web address] 4 [facility] With [address] [place], [place], [address], 09/12/2023 11:51:18 Referral None recorded. Procedures None recorded. Surgeries None recorded. Imaging None recorded. Medication Orders None recorded. Patient TargetsNo targets recorded. Patient Instructions Encounter Date Encounter Id Patient Instructions Last Modified By Organization Details Last Modified Time 09/03/2022 [id number] learning about healthy weight [email or web address] Not available 09/07/2022 08:50:31 02/11/2023 [id number] learning about healthy weight Not available 02/14/2023 10:15:05 09/09/2023 [id number] learning about healthy weight [email or web address] Not available 09/12/2023 11:51:16 02/24/2024 [id number] learning about healthy weight [email or web address] Not available 02/26/2024 11:52:48 05/25/2024 [id number] learning about healthy weight Not available 06/04/2024 19:58:50 Reason for Referral None Reported. Results Created Date Observation Date Name Description Value Unit Range Abnormal Flag Note LastModifiedBy Organization Detail LastModifiedTime 09/09/19 24 09/09/2023 urina lysis panel , auto Unknown Analyte Clean Catch Not Available [facility] With [address] [place], [address], 09/09/2023 13:59:30 09/09/19 24 09/09/2023 urina lysis panel , auto Unknown Analyte Yellow Not Available [facility] With [address], [place], [address], 09/09/2023 13:59:30 09/09/19 24 09/09/2023 urina lysis panel , auto Unknown Analyte Clear Not Available [facility] With [address], [place], [address], 09/09/2023 13:59:30 09/09/19 24 09/09/2023 urina lysis panel , auto Unknown Analyte 1.020 Not Available [facility] With [address], [place], [address], 09/09/2023 13:59:30 09/09/19 24 09/09/2023 urina lysis panel , auto Unknown Analyte 1.003- 1.035 Not Available [facility] With [address], [place], [address], 09/09/2023 13:59:30 09/09/19 24 09/09/2023 urina lysis panel , auto Unknown Analyte 5.0 Not Available [facility] With [address] [place], [place], [address], 09/09/2023 13:59:30 09/09/19 24 09/09/2023 urina lysis panel , auto Unknown Analyte 5.0-8. 0 Not Available [facility] With [address], [place], [address], 09/09/2023 13:59:30 09/09/19 24 09/09/2023 urina lysis panel , auto Unknown Analyte Negati ve Not Available [facility] With [address] [place], [place], [address], 09/09/2023 13:59:30 09/09/19 24 09/09/2023 urina lysis panel , auto Unknown Analyte Negati ve Not Available [facility] With [address] [place], [address], 09/09/2023 13:59:30 09/09/19 24 09/09/2023 urina lysis panel , auto Unknown Analyte Negati ve Not Available [facility] With [address] [place], [address], 09/09/2023 13:59:30 09/09/19 24 09/09/2023 urina lysis panel , auto Unknown Analyte Negati ve Not Available [facility] With [address] [place], [address], 09/09/2023 13:59:30 09/09/19 24 09/09/2023 urina lysis panel , auto Unknown Analyte Negati ve Not Available [facility] With [address] [place], [address], 09/09/2023 13:59:30 09/09/19 24 09/09/2023 urina lysis panel , auto Unknown Analyte Negati ve Not Available [facility] With [address] [place], [address], 09/09/2023 13:59:30 09/09/19 24 09/09/2023 urina lysis panel , auto Unknown Analyte Normal Not Available [facility] With [address] [place], [address], 09/09/2023 13:59:30 09/09/19 24 09/09/2023 urina lysis panel , auto Unknown Analyte Normal Not Available [facility] With [address] [place], [address], 09/09/2023 13:59:30 09/09/19 24 09/09/2023 urina lysis panel , auto Unknown Analyte Negati ve Not Available [facility] With [address] [place], [address], 09/09/2023 13:59:30 09/09/19 24 09/09/2023 urina lysis panel , auto Unknown Analyte Negati ve Not Available [facility] With [address] [place], [address], 09/09/2023 13:59:30 09/09/19 24 09/09/2023 urina lysis panel , auto Unknown Analyte Normal Not Available [facility] With [address] [place], [address], 09/09/2023 13:59:30 09/09/19 24 09/09/2023 urina lysis panel , auto Unknown Analyte Normal 1 mg/dl Not Available [facility] With [address] [place], [address], 09/09/2023 13:59:30 09/09/19 24 09/09/2023 urina lysis panel , auto Unknown Analyte Negati ve Not Available [facility] With [address] [place], [address], 09/09/2023 13:59:30 09/09/19 24 09/09/2023 urina lysis panel , auto Unknown Analyte Negati ve Not Available [facility] With [address] [place], [address], 09/09/2023 13:59:30 09/09/19 24 09/09/2023 urina lysis panel , auto Unknown Analyte Negati ve Not Available [facility] With [address] [place], [address], 09/09/2023 13:59:30 09/09/19 24 09/09/2023 urina lysis panel , auto Unknown Analyte Negati ve Not Available [facility] With [address] [place], [address], 09/09/2023 13:59:30 05/25/19 25 05/25/2024 urina lysis panel , auto Unknown Analyte Clean Catch Not Available [facility] With [address] [place], [address], 05/25/2024 15:07:14 05/25/19 25 05/25/2024 urina lysis panel , auto Unknown Analyte Yellow Not Available [facility] With [address], [place], [address], 05/25/2024 15:07:14 05/25/19 25 05/25/2024 urina lysis panel , auto Unknown Analyte Clear Not Available [facility] With [address], [place], [address], 05/25/2024 15:07:14 05/25/19 25 05/25/2024 urina lysis panel , auto Unknown Analyte 1.010 Not Available [facility] With [address] [place], [address], 05/25/2024 15:07:14 05/25/19 25 05/25/2024 urina lysis panel , auto Unknown Analyte 1.003- 1.035 Not Available [facility] With [address] [place], [place], [address], 05/25/2024 15:07:14 05/25/19 25 05/25/2024 urina lysis panel , auto Unknown Analyte 5.0 Not Available [facility] With [address] [place], [address], 05/25/2024 15:07:14 05/25/19 25 05/25/2024 urina lysis panel , auto Unknown Analyte 5.0-8. 0 Not Available [facility] With [address] [place], [address], 05/25/2024 15:07:14 05/25/19 25 05/25/2024 urina lysis panel , auto Unknown Analyte Negati ve Not Available [facility] With [address] [place], [address], 05/25/2024 15:07:14 05/25/19 25 05/25/2024 urina lysis panel , auto Unknown Analyte Negati ve Not Available [facility] With [address] [place], [address], 05/25/2024 15:07:14 05/25/19 25 05/25/2024 urina lysis panel , auto Unknown Analyte Negati ve Not Available [facility] With [address] [place], [address], 05/25/2024 15:07:14 05/25/19 25 05/25/2024 urina lysis panel , auto Unknown Analyte Negati ve Not Available [facility] With [address] [place], [address], 05/25/2024 15:07:14 05/25/19 25 05/25/2024 urina lysis panel , auto Unknown Analyte Negati ve Not Available [facility] With [address] [place], [place], [address], 05/25/2024 15:07:14 05/25/19 25 05/25/2024 urina lysis panel , auto Unknown Analyte Negati ve Not Available [facility] With [address] [place], [address], 05/25/2024 15:07:14 05/25/19 25 05/25/2024 urina lysis panel , auto Unknown Analyte >1000 mg/dl Not Available [facility] With [address] [place], [address], 05/25/2024 15:07:14 05/25/19 25 05/25/2024 urina lysis panel , auto Unknown Analyte Normal Not Available [facility] With [address] [place], [place], [address], 05/25/2024 15:07:14 05/25/19 25 05/25/2024 urina lysis panel , auto Unknown Analyte Negati ve Not Available [facility] With [address], [place], [address], 05/25/2024 15:07:14 05/25/19 25 05/25/2024 urina lysis panel , auto Unknown Analyte Negati ve Not Available [facility] With [address] [place], [address], 05/25/2024 15:07:14 05/25/19 25 05/25/2024 urina lysis panel , auto Unknown Analyte Normal Not Available [facility] With [address], [place], [address], 05/25/2024 15:07:14 05/25/19 25 05/25/2024 urina lysis panel , auto Unknown Analyte Normal 1 mg/dl Not Available [facility] With [address], [place], [address], 05/25/2024 15:07:14 05/25/19 25 05/25/2024 urina lysis panel , auto Unknown Analyte Negati ve Not Available [facility] With [address] [place], [place], [address], 05/25/2024 15:07:14 05/25/19 25 05/25/2024 urina lysis panel , auto Unknown Analyte Negati ve Not Available [facility] With [address], [place], [address], 05/25/2024 15:07:14 05/25/19 25 05/25/2024 urina lysis panel , auto Unknown Analyte Negati ve Not Available [facility] With [address] [place], [place], [address], 05/25/2024 15:07:14 05/25/19 25 05/25/2024 urina lysis panel , auto Unknown Analyte Negati ve Not Available [facility] With [address] [place], [place], [address], 05/25/2024 15:07:14 Result Notes None recorded. Procedures Surgical History Date Name Laterality Status Provider Name and Address Organization Details Recorded Time 12/17/19 ultrasonography guided insertion of gold seed marker completed Jannette Forte [facility] 02/19/2022 15:47:03 [facility] 15:57:24 [facility] 15:57:35 total knee replacement completed [facility] 08/01/2020 15:58:38 Imaging Results None recorded. Procedure Notes None recorded. Medical Equipment None Reported. Allergies Allergen ID Allergen Name Allergen Category Reaction Reaction Severity Criticality Documentation Date Start Date Code Code System Note Provider Name and Address Organization Details Recorded Time 255222 hydrocodo ne Not available Not available Not available Not available 08/01/2020 5489 Rx[facility] 15:53:46 Medications Name Sig Start Date Stop Date Status Note LastModified by Organization Details LastModified Time atorvastati n 40 mg tablet Take 1 tablet every day by oral route. 2023 active Not Available Not Available Not Avai lable metformin 500 mg tablet Take 1 tablet twice a day by oral route. active Not Available Not Available No t Available bisoprolol 5 mg-hydrochl orothiazide 6.25 mg tablet Take 1 tablet every day by oral route. active Not Available Not Available No t Available sildenafil 100 mg tablet Take 1 tablet 3 times a week by oral route as needed. 09/08 completed Not Available Not Available Not Available Cipro 500 mg tablet Take 1 tablet twice a day by oral route for 3 days. 02/19 completed Not Available Not Available Not Available omeprazole 20 mg capsule,del ayed release Take 1 capsule every day by oral route. active Not Available Not Available No t Available lisinopril 10 mg-hydrochl orothiazide 12.5 mg tablet Take 1 tablet every day by oral route. 02/23 completed Not Available Not Available Not Available Asprin Ec Low Dose 81 mg tablet,bonny yed release Take 1 tablet every day by oral route. active Not Available Not Available No t Available Novolog Mix 70-30 U-100 Insulin 100 unit/mL subcutaneou s solution Inject by subcutane ous route. 05/25 completed Not Available Not Available Not Available tadalafil 5 mg tablet Take 1 tablet every day by oral route for 30 days. 09/08 completed Not Available Not Available Not Available tadalafil 20 mg tablet Take 1 tablet every 72 hours by oral route as needed. 09/08 completed Not Available Not Available Not Available fenofibrate 160 mg tablet Take 1 tablet every day by oral route. active Not Available Not Available No t Available famotidine active Not Available Not Av ailable Not Available furosemide active Not Available Not Av ailable Not Available spironolact one active Not Available Not Available Not Available pantoprazol e active Not Available Not Available Not Available Xarelto 15 mg tablet Take 1 tablet every day by oral route. 05/25 completed Not Available Not Available Not Available Xarelto 20 mg tablet Take 1 tablet every day by oral route. active Not Available Not Available No t Available Jardiance active Not Available Not Juana ilable Not Available Toubrandon Max U-300 SoloStar active Not Available Not Available Not Available Vitals Date Recorded Body height Body mass index (BMI) Body weight Provider Name and Address Organization Details Last Updated DateTime 05/25/2024 175.26 cm 40.6 kg/m2 664971.9 g [facility] 05/25/2024 15:05:39 Date Recorded Body height Body mass index (BMI) Body weight Provider Name and Address Organization Details Last Updated DateTime 09/03/2022 175.26 cm 40.6 kg/m2 019288.9 [facility] 09/03/2022 13:36:11 Date Recorded Body height Body mass index (BMI) Body weight Provider Name and Address Organization Details Last Updated DateTime 09/09/2023 175.26 cm 43 kg/m2 954965.38 g [facility] 09/09/2023 13:59:26 Date Recorded Body height Body mass index (BMI) Body weight Provider Name and Address Organization Details Last Updated DateTime 02/11/2023 175.26 cm 40.6 kg/m2 310390.9 g [facility] 02/11/2023 16:29:53 Date Recorded Body height Body mass index (BMI) Body weight Provider Name and Address Organization Details Last Updated DateTime 02/24/2024 175.26 cm 42.1 kg/m2 673459.83 g Jannette Forte [facility] 02/24/2024 18:18:40 Social History Question Answer Notes LastModified by Organizat ion Details LastModified Time Tobacco Smoking Status Never Smoker David crowe [facility] 08/01/2020 15:56:59 Marital Status Informatio n not available 08/01/2020 What Was The Date Of Your Most Recent Tobacco Screening? 05/25/2024 Information not available 05/25/2024 On What Date Was Tobacco Cessation Counseling Provided? 10/17/2020 Information not available 10/17/2020 Sex: Unknown Functional Status Question Answer Note LastModified by Organization D etails LastModified Time What is your level of alcohol consumption? None Information not available 08/01/2020 Mental Status None recorded. Family History Relationship Description Onset Age of this Age Resolved Age Notes LastModified by Organization Details LastModified Time Unspecified Relation Kidney stone [email or web address] Not available 15:56:38 Unspecified Relation Diabetes mellitus lemuel Not available 2020 15:56:48 Medical History Condition Response False Teeth Y Diabetes Y Hypertension Y Past Encounters Encounter ID Performer Location Encounter Start Date Encounter Closed Date Diagnosis/Indication Diagnosis SNOMED-CT Code Diagnosis ICD10 Code Diagnosis Note [id number] BRITT OHARA MD [facility] [address] [address] 08/01/2020 15:06:38 08/02/2020 15:54:14 Primary erectile dysfunction 090038625 N52.9 Benign pro static hyperplasia with outflow obstruction 631603580 N40.1 [id number] BRITT OHARA MD [facility] [address] [address] 10/17/2020 14:05:45 10/18/2020 13:53:02 Primary erectile dysfunction 355076148 N52.9 Benign pro static hyperplasia with outflow obstruction 767872727 N40.1 [id number] BRITT OHARA MD [facility] [address] [address] 12/05/2020 14:32:04 12/06/2020 09:02:31 Primary erectile dysfunction 133195189 N52.9 Benign pro static hyperplasia with outflow obstruction 156909346 N40.1 [id number] BRITT OHARA MD [facility] [address] [place] [phone] 10/02/2021 14:43:59 10/06/2021 08:30:50 Prostate specific antigen above reference range 599056058 R97.20 Primary er ectile dysfunction 852617904 N52.9 [id number] BRITT OHARA MD SURGERY SCHEDULE [address] [place] [address] 10/21/2021 14:46:42 10/21/2021 14:47:43 [id number] BRITT OHARA MD [facility] [address] [place] [id number] 11/14/2021 10:20:33 11/14/2021 11:40:01 Malignant neoplasm of prostate 126470647 C61 Prostate s pecific antigen above reference range 848388575 R97.20 [id number] ELIZA ESPINAL MD [facility] [address] [place] [address] 11/27/2021 08:05:49 11/27/2021 14:33:11 [id number] BRITT OHARA MD SURGERY SCHEDULE [address] [place] [address] 12/16/2021 11:43:23 12/16/2021 11:43:53 [id number] BRITT OHARA MD [facility] [address],[place] [address] 02/19/2022 15:28:59 02/26/2022 14:36:01 Malignant neoplasm of prostate 046445719 C61 Prostate s pecific antigen above reference range 365300736 R97.20 [id number] BRITT OHARA MD [facility] [address] [address] 06/04/2022 12:56:30 06/19/2022 04:38:17 Malignant neoplasm of prostate 208825888 C61 Prostate s pecific antigen above reference range 335773969 R97.20 Primary er ectile dysfunction 849876947 N52.9 [id number] ELIZA ESPINAL MD [facility] [address] [place] [address] 06/05/2022 08:45:51 06/05/2022 09:24:17 [id number] BRITT OHARA MD [facility] [address] [place] [address] 09/03/2022 13:05:27 09/03/2022 16:01:48 Malignant neoplasm of prostate 902087311 C61 Prostate s pecific antigen above reference range 408357765 R97.20 Primary er ectile dysfunction 542423309 N52.9 [id number] ELIZA ESPINAL MD [facility] [place] [address] [place] [address] 6 12/04/2022 08:38:53 12/04/2022 09:03:00 [id number] BRITT OHARA MD [facility] [address] [place] [address] 02/11/2023 16:16:47 02/11/2023 18:11:20 Malignant neoplasm of prostate 660733537 C61 Prostate s pecific antigen above reference range 073503246 R97.20 Primary er ectile dysfunction 137171283 N52.9 [id number] BRITT OHARA MD [facility] [address] [place] [address] 09/09/2023 13:30:54 09/09/2023 16:46:41 Malignant neoplasm of prostate 917802099 C61 Prostate s pecific antigen above reference range 056177522 R97.20 Secondary erectile dysfunction 614215469 N52.39 [id number] ELIZA ESPINAL MD [facility] [place] [address] [place] [address] 6 12/10/2023 08:43:56 12/10/2023 09:28:48 [id number] BRITT OHARA MD [facility] [address] [place] [address] 02/24/2024 13:20:15 02/24/2024 18:39:41 Malignant neoplasm of prostate 038429484 C61 Balanitis xerotica obliterans 002915361 N48.0 [id number] BRITT OHARA MD [facility] [address] [place] [address],[place] [address] 05/25/2024 14:31:33 05/25/2024 19:05:16 History of malignant neoplasm of prostate 057190202 Z85.46 Balanitis xerotica obliterans 119553824 N48.0 Health Concerns Section Related Observation LastModified by Organization Detai ls LastModified Time None Recorded Concern Status LastModified by Organization Details LastModified Time None Recorded Advance Directives Directive None Recorded Payers Insurance Date Sequence Insurance Name Policy Number Policy Keenan Covered Member ID Keenan Member ID Guarantor Name 06/05/2024 2 [employer] (MEDICARE SUPPLEMENT) Pavel Zapata [id number] Pavel Zapata 08/12/2020 [facility] Pavel Zapata [id number] Pavel Zapata 05/15/2024 1 [place] Pavel Zapata [id number] Pavel Zapata 10/22/2021 2 [employer] (MEDICARE SUPPLEMENT) Pavel Zapata [id number] Pavel Zapata Notes Date Note Type Note Provider Name and Address Organization Details Recorded Time 09/03/2022 text/html 67-year-old male in the office for follow-up evaluation of adenocarcinoma of the prostate status post radiation therapy. He finished radiation therapy in January 2022. No hematuria. No dysuria. He denies any bothersome lower urinary symptoms. PSA from May 2022 was 0.7. He has discontinued cialis. History of BXO. He has history of erectile dysfunction and has taken sildenafil and tadalafil. PSAFebruary 2022-0.711December 2021-1.7 BRITT OHARA MD [address] [place] [address], [address], [facility] [facility]22 09:27:30 02/11/2023 text/html 67-year-old male in the office for follow-up evaluation of adenocarcinoma of the prostate status post radiation therapy. He finished radiation therapy in January 2022. History of BXO. He has history of erectile dysfunction and has taken sildenafil and tadalafil. He has stopped using those medications due to not seeing improvement. No hesitancy. No urgency. Daytime frequency every 2 hours. Nocturia 1 time. No gross hematuria. No dysuria. PSAMay 2022-0.281February 2023-0.711December 2021-1.7 BRITT OHARA MD [address] [place] [address], [phone], [facility] 02/14/2023 10:15:23 09/09/2023 text/html 68-year-old male in the office for follow-up evaluation of adenocarcinoma of the prostate status post radiation therapy. He finished radiation therapy in January 2022. History of BXO. He has history of erectile dysfunction and has taken sildenafil and tadalafil. He has stopped using those medications due to not seeing improvement. Patient had recently large bilateral pulmonary emboli. PSAMay 2023-0.065November 2022-0.095May 2022-0.281February 2022-0.711December 2021-1.7 BRITT OHARA MD [address] [place] [address], [phone], [facility] 09/12/2023 11:51:31 02/24/2024 text/html 68-year-old male in the office for follow-up evaluation of adenocarcinoma of the prostate status post radiation therapy. He finished radiation therapy in January 2022. History of BXO. He has history of erectile dysfunction and has taken sildenafil and tadalafil. He has stopped using those medications due to not seeing improvement. He reports urgency and urge incontinence. Patient notes recent bleeding from the head of his penis and has developed a lesion. There area now has started to heal with overlying scab. Patient had large bilateral pulmonary emboli and he continues to treat and investigate this illness. PSAOctober 2023 - 0.064, patient reportedMay 2023-0.065November 3-0.095May 3-0.281February 3-0.711December 2021-1.7 BRITT OHARA MD [address] [place], [phone], [place] [facility] 02/26/2024 11:53:03 05/25/2024 text/html 69-year-old male in the office for follow-up evaluation of adenocarcinoma of the prostate status post radiation therapy. He finished radiation therapy in January 2022. History of BXO. He has history of erectile dysfunction and has taken sildenafil and tadalafil. He has stopped using those medications due to not seeing improvement. He reports frequency due to diuretic. He was also told that he has too much protein in his urine. He has increased fluids due to being thirsty as a side effect of the diuretic. He states that he still has a small red lesion on the penis that has decreased in size and denies irritation. PSA05/16/24= 0.065October 2023 - 0.064, patient reportedMay 2023-0.065November 2022-0.095May 2022-0.281February 2022-0.711December 2021-1.7 BRITT OHARA MD [facility] [place], [phone], [place] [facility] 06/04/2024 19:59:06
--- OUTSIDE RECORDS SUMMARY | 2024-10-18 07:35 | XMS_ITS | Clinical Summary ---
Author Organization Healthcare Address [address] 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 Name Role Phone Dion Butts MD Primary Care Provider Myrna vailable Encounters Date Type Department Care Team Description 10/02/2024 Orders Only [facility] [address] [place] [address] Asuncion Larson Proteinuria, unspecified type (Primary Dx); Stage 3 chronic kidney disease, unspecified whether stage 3a or 3b CKD (CMS/HCC) from Last 3 Months Social History Tobacco Use Types Packs/Day Years Used Date Smoking Tobacco: Never Assessed Sex and Gender Information Value Date Recorded Sex Assigned at Not on file Legal Sex Male 8:35 PM EDT Gender Identity Not on file Sexual Orientation Not on file Last Filed Vital Signs Vital Sign Reading Time Taken Comments Blood Pressure - - Pulse - - Temperature - - Respiratory Rate - - Oxygen Saturation - - Inhaled Oxygen Concentration - - Weight 126 kg (277 lb 0.1 oz) 09/11/2019 10:25 A M EDT Height 175.3 cm (5' 9 ) 09/11/2019 10:25 AM EDT Body Mass Index 40.91 09/11/2019 10:25 AM EDT Plan of Treatment Upcoming Encounters Date Type Department Care Team (Late st Contact Info) Description 11/01/2024 1:00 PM EDT Office Visit Professional [facility] [address], [address] [place] [address] Frank Luther MD [address] [place] [address] Health Maintenance Due Date Last Done Comments [facility]-Depression Screening 1955 [facility]-Hepatitis C Screening 1955 [facility]-Infant/Child/Adol SDOH Screenings 1955 [facility]- SDOH Screenings 1973 [facility]-Adult SDOH Screenings 1973 [facility]-DTaP,Tdap,and Td Vaccine s (1 - Tdap) 1974 CT Colonography 2000 Colonoscopy 2000 FIT-DNA 2000 FIT 2000 FOBT 2000 Sigmoidoscopy 2000 [facility]-Colorectal Cancer Screening 2000 [facility]-Pneumococcal Vaccine: 50 + Years (1 of 1 - PCV) 2005 [facility]-Zoster Vaccines (1 of 2) 2005 [id number] Vaccine (1 - 20 24-25 season) 2023 [facility]-Influenza Vaccine (#1) 2024 [facility]-RSV Vaccine: 60+ Years o r (1 - 1-dose 75+ series) 2030 HPV Vaccines Aged Out No longer eligi ble based on patient's age to complete this topic [facility]-HIB Vaccines Aged Out No longer e ligible based on patient's age to complete this topic [facility]-Hepatitis A Vaccines Aged Out No longer eligible based on patient's age to complete this topic [facility]-IPV Vaccines Aged Out No longer e ligible based on patient's age to complete this topic [facility]-Rotavirus Vaccines Aged Out No lo nger eligible based on patient's age to complete this topic Care Teams Adhesive Bandage Machine Operator Relationship Specialty Start Date End Date Dion Butts MD PCP - General Family Medicine 05/11/24
--- OUTSIDE RECORDS SUMMARY | 2024-10-18 07:35 | XMS_ITS | Data Portability ---
Author Organization [facility], [facility] Address [address] [place] [address] Care Team Providers Care Microsoft Crm Developer Name Role Phone BRITT PRAKASH Referring Provider ELIZA KEY Radiation Oncologist DAVID ROTH Primary Care Provider [phone] Assessment Encounter Date Assessment Date Assessment LastModified by Organization Details LastModified Time 11/27/2021 11/27/2021 Pavel is a 66-year-old gentleman with clinical stage T1 cN0 M0 grade group 1 [place] 6 prostate adenocarcinoma with a pretreatment PSA of 4.5 and prostate volume was 17.7 cc. I reviewed the national comprehensive cancer network guidelines and discussed the role of radiation in his care. I described radiation treatment options and he is interested in pursuing stereotactic body radiotherapy. He will be scheduled for gold fiducial placement by Dr. Prakash followed by planning prostate MRI and CT simulation. [email or web address] Not available 11/27/2021 09:16:38 06/05/2022 06/05/2022 Pavel is a 67-year-old gentleman with clinical stage T1 cN0 M0 grade group 1 Tarun 6 prostate adenocarcinoma with a pretreatment PSA of 4.5 and prostate volume was 17.7 cc. He completed stereotactic body radiotherapy in January 2022. His PSA has come down nicely. Urinary score is stable. He will return in 6 months or sooner as needed. [email or web address] Not available 06/05/2022 09:21:28 12/04/2022 12/04/2022 Pavel is a 67-year-old gentleman with clinical stage T1 cN0 M0 grade group 1 Tarun 6 prostate adenocarcinoma with a pretreatment PSA of 4.5 and prostate volume was 17.7 cc. He completed stereotactic body radiotherapy in January 2022. His PSA continues to decline nicely. Urinary score is stable. He will return in 1 year or sooner as needed. [email or web address] Not available 12/04/2022 09:00:18 12/10/2023 12/10/2023 Pavel is a 67-year-old gentleman with clinical stage T1 cN0 M0 grade group 1 Tarun 6 prostate adenocarcinoma with a pretreatment PSA of 4.5 and prostate volume was 17.7 cc. He completed stereotactic body radiotherapy in January 2022. His PSA continues to decline nicely. Urinary score is stable. He will return in 1 year or sooner as needed. [email or web address] Not available 12/10/2023 09:11:03 Plan of Treatment Reminders Order Date Submit Date Provider Last Modified By Organization Details Last Modified Time Details Appointments RECHECK 2024 01:30P M BRITT PRAKASH MD Not available Not available Not available RECHECK 2024 09:30A M ELIZA PADILLA MD Not available Not available Not available Lab None recorded . Referral None recorded . Procedures None recorded . Surgeries None recorded . Imaging None recorded . Medication Orders None recorded . Patient TargetsNo targets recorded. Patient InstructionsNo instructions recorded. Reason for Referral None Reported. Results Created Date Observation Date Name Description Value Unit Range Abnormal Flag Note LastModifiedBy Organization Detail LastModifiedTime 01/13/2001/09/2022 MRI, pelvi s, w/wo contr ast [place] [address] [place] [address] Patien t Name: SILVANA MULLINS Patien t : 1954 Patien t Orderi ng Provid er: JAMISON CHRIS IMMERM AN EXAM DATE: 2021 EXAM: MR PELVIS ATTN PROSTA TE W/WO CONTRA ST CLINIC AL INFORM ATION: Prosta te cancer . Study was perfor med for radiat ion therap y planni ng. TECHNI QUE: A baseli ne serum creati nine with eGFR was obtain ed prior to inject ion of contra st medium due to the patien ts risk factor s for JACLYN. Calcul ated eGFR at time of exam was GFR>60 Tripla augie T2, axial DWI, ADC map, axial T1 pre- and dynami c postco ntrast -enhan matty images as well as axial T1 fat-sa t imagin g was perfor med after inject ion of 15 mL (1 x 15 mL bottle of [facility] 93124- [id number] ) IV. The patien t did not requir e sedati on for this exam. COMPAR DARION: None. FINDIN GS: PROSTA TE SIZE MEASUR EMENTS : Prosta te dimens ions = 3.5 x 3.3 x 3.1 cm (T x AP x CC). Rectum is empty. The fat plane betwee n the healthcare liaison ior aspect of the prosta te gland and distal rectum measur es approx imatel y 4-8 mm. QUALIT Y: Excell ent qualit y images PERIPH ERAL ZONE: Overal l. periph eral zone is normal in size and backgr ound signal charac terist ics. No suspic ious focal lesion is seen. TRANSI TION ZONE: A few, well deline ated encaps ulated nodule s are seen consis tent with mild BPH. Follow ing suspic ious lesion s are seen. There are 2 PI-RAD S Catego ry 4/5 lesion s locate d one in each anteri or transi tion zone at the lower mid gland and gland apex levels . Measur ement = 5 mm on the right and 10 mm on the left. Seen best in image 17 of series 25638, 8006, 8007, and image 137 of series 66279. It is positi ve on T2 WI, ADC, DWI and DCE images . CAPSUL E AND NEIGHB ORING STRUCT URES: No capsul ar invasi on is identi fied. Neuro- vascul ar bundle s are normal bilate rally. Semina l vesicl es are normal . PELVIC LYMPH NODES: No pelvic lympha denopa thy. PELVIC BONES: 1. Normal -sized prosta te. 2. Bilate ral PI-RAD S Catego ry 4/5 suspic ious lesion s in both anteri or transi tion zones as descri bed above. 3. No eviden ce of pelvic lympha tic or skelet al spread is seen in the images provid ed. IMPRES LD: 1. Change s of BPH 2. No suspic ious focal lesion is seen.. Interp reted By: Pritesh Macias MD Electr onical ly Signed By: Pritesh Macias MD on 022 9:20 AM [facility] [address] [place] [address], [phone], 01/14/2022 08:40:14 Result Notes Documentation Provider Name and Address Organization Details Recorded Time Mri, Pelvis, W/wo Contrast : [address] [address] Patient Name: PAVEL LANGLEY Patient : 1955 Patient Ordering Provider: ELIZA KEY EXAM DATE: 01/09/2022 EXAM: MR PELVIS ATTN PROSTATE W/WO CONTRAST CLINICAL INFORMATION: Prostate cancer. Study was performed for radiation therapy planning. TECHNIQUE: A baseline serum creatinine with eGFR was obtained prior to injection of contrast medium due to the patients risk factors for JACLYN. Calculated eGFR at time of exam was GFR>60 Triplanar T2, axial DWI, ADC map, axial T1 pre- and dynamic postcontrast-enhanced images as well as axial T1 fat-sat imaging was performed after injection of 15 mL (1 x 15 mL bottle of [facility] [id number]) IV. The patient did not require sedation for this exam. COMPARISON: None. FINDINGS: PROSTATE SIZE MEASUREMENTS: Prostate dimensions = 3.5 x 3.3 x 3.1 cm (T x AP x CC). Rectum is empty. The fat plane between the posterior aspect of the prostate gland and distal rectum measures approximately 4-8 mm. QUALITY: Excellent quality images PERIPHERAL ZONE: Overall. peripheral zone is normal in size and background signal characteristics. No suspicious focal lesion is seen. TRANSITION ZONE: A few, well delineated encapsulated nodules are seen consistent with mild BPH. Following suspicious lesions are seen. There are 2 PI-RADS Category 4/5 lesions located one in each anterior transition zone at the lower mid gland and gland apex levels . Measurement = 5 mm on the right and 10 mm on the left. Seen best in image 17 of series 45397, 8006, 8007, and image 137 of series 19133. It is positive on T2 WI, ADC, DWI and DCE images. CAPSULE AND NEIGHBORING STRUCTURES: No capsular invasion is identified. Neuro-vascular bundles are normal bilaterally. Seminal vesicles are normal. PELVIC LYMPH NODES: No pelvic lymphadenopathy. PELVIC BONES: 1. Normal-sized prostate. 2. Bilateral PI-RADS Category 4/5 suspicious lesions in both anterior transition zones as described above. 3. No evidence of pelvic lymphatic or skeletal spread is seen in the images provided. IMPRESSION: 1. Changes of BPH 2. No suspicious focal lesion is seen.. Interpreted By: Ramez Macias MD [address], [place], [address], [facility] 01/14/2022 08:40:14 Problems Name Problem SNOMED Code Status Onset Date Resolution Date Notes Provider Name and Address Organization Details Recorded Time Malignant neoplasm of prostate 653699696 Active [address],[facility] [place], [address], [facility] 2 11:24:13 History of external beam radiation therapy 340883090557 03 Active [address] [place], [address], [facility] 3 08:52:04 Problem Notes None recorded. Procedures Surgical History Date Name Laterality Status Provider Name and Address Organization Details Recorded Time Appendectomy completed [facility] 11/26/2021 14:58:07 cholecystectomy completed [facility] 11/26/2021 14:59:13 total knee replacement completed [facility] 11/27/2021 09:29:38 extraction of cataract completed [facility] 11/27/2021 09:29:53 extraction of cataract completed [facility] 11/27/2021 09:29:54 Blood clot retraction completed [facility] 12/10/2023 09:00:26 Imaging Results None recorded. Procedure Notes None recorded. Medical Equipment None Reported. Allergies Allergen ID Allergen Name Allergen Category Reaction Reaction Severity Criticality Documentation Date Start Date Code Code System Note Provider Name and Address Organization Details Recorded Time 539469 hydrocodo ne Not available Not available Not available Not available 11/17/2021 5489 RxNorm Brenda Tariq [facility] 15:28:41 Medications Name Sig Start Date Stop Date Status Note LastModified by Organization Details LastModified Time atorvastati n 40 mg tablet Take 1 tablet every day by oral route. 12/09 completed Not Available Not Available Not Available metformin 500 mg tablet Take 1 tablet twice a day by oral route. active Not Available Not Available No t Available atorvastati n 80 mg tablet TAKE ONE TABLET BY MOUTH EVERY DAY active Not Available Not Available No t Available azithromyci n 250 mg tablet TAKE 2 TABLETS BY MOUTH ON DAY 1 AND THEN TAKE 1 TABLET BY MOUTH ONCE A DAY ON DAY 2 THROUGH DAY 5 12/09 completed Not Available Not Available Not Available bisoprolol 5 mg-hydrochl orothiazide 6.25 mg tablet Take 1 tablet every day by oral route. 12/09 completed Not Available Not Available Not Available ciprofloxac in 500 mg tablet Take 1 tablet every 12 hours by oral route for 3 days. 06/05 completed Not Available Not Available Not Available sildenafil 100 mg tablet Take 1 tablet 3 times a week by oral route as needed. 11/27 completed Not Available Not Available Not Available bisoprolol fumarate 5 mg tablet 1/2 tablet daily active Not Available Not Available No t Available cephalexin 500 mg capsule TAKE 1 CAPSULE BY MOUTH 4 TIMES DAILY 12/09 completed Not Available Not Available Not Available pantoprazol e 40 mg tablet,bonny yed release TAKE ONE TABLET BY MOUTH EVERY DAY 12/09 completed Not Available Not Available Not Available omeprazole 20 mg capsule,del ayed release Take 1 capsule every day by oral route. active Not Available Not Available No t Available montelukast 10 mg tablet TAKE 1 TABLET BY MOUTH ONCE DAILY 12/09 completed Not Available Not Available Not Available furosemide 20 mg tablet Take 1 tablet every day by oral route. active Not Available Not Available No t Available lisinopril 10 mg-hydrochl orothiazide 12.5 mg tablet Take 1 tablet every day by oral route. 12/09 completed Not Available Not Available Not Available methylpredn isolone 4 mg tablets in a dose pack TAKE DIRECTED 06/05 completed Not Available Not Available Not Available albuterol sulfate HFA 90 mcg/actuati on aerosol inhaler INHALE 2 PUFFS BY MOUTH 4 TIMES DAILY WHILE AWAKE FOR 2 DAYS THEN 1 TO 2 PUFFS EVERY 4 TO 6 HOURS NEEDED FOR 10 DAYS 11/27 completed Not Available Not Available Not Available lisinopril 2.5 mg tablet TAKE ONE TABLET BY MOUTH EVERY DAY 12/09 completed Not Available Not Available Not Available Novolog Mix 70-30 FlexPen U-100 Insulin 100 unit/mL subcutaneou s pen 12/09 completed Not Available Not Available Not Available Novolog Mix 70-30 U-100 Insulin 100 unit/mL subcutaneou s solution Inject by subcutane ous route. 12/09 completed Not Available Not Available Not Available tadalafil 5 mg tablet Take 1 tablet every day by oral route for 30 days. 11/27 completed Not Available Not Available Not Available tadalafil 20 mg tablet Take 1 tablet every 72 hours by oral route as needed. 11/27 completed Not Available Not Available Not Available fenofibrate 160 mg tablet Take 1 tablet every day by oral route. 12/09 completed Not Available Not Available Not Available lisinopril 25mg daily active Not Available Not Available No t Available fenofibrate 150 mg capsule Take 1 capsule every day by oral route. active Not Available Not Available No t Available Accu-Chek Ashly Plus test strips USE 1 STRIP TO CHECK GLUCOSE TWICE DAILY NEEDED active Not Available Not Available No t Available Xarelto 15 mg tablet TAKE ONE TABLET BY MOUTH TWICE DAILY with meals FOR 19 DAYS 12/09 completed Not Available Not Available Not Available Xarelto 20 mg tablet active Not Available Not Available No t Available Droplet Pen Needle 31 gauge x 5/16 active Not Available Not Available Not Available Droplet Pen Needle 32 gauge x 5/32 active Not Available Not Available Not Available Toujeo Max U-300 SoloStar 300 unit/mL (3 mL) subcutaneou s insulin pen INJECT 160 UNITS SUBCUTANE OUSLY ONCE DAILY active Not Available Not Available No t Available Novolin 70-30 FlexPen U-100 Insulin 100 unit/mL (70-30) subcutaneou s INJECT 50 UNITS SUBCUTANE OUSLY TWICE DAILY FOR 90 DAYS 12/09 completed Not Available Not Available Not Available Vitals Date Recorded Body height Body mass index (BMI) Body weight Body temperature Heart rate Oxygen saturation Oxygen saturation in Arterial blood by Pulse oximetry Systolic And Diastolic Provider Name and Address Organization Details Last Updated DateTime 3 175.26 cm 42.9 kg/m2 101192. 94 g 97.21 [degF] 79 /min 96 % 96 % 143/49 mm[Hg] Tram [facility] 3 08:53:01 Date Recorded Body height Body mass index (BMI) Body weight Body temperature Heart rate Oxygen saturation Oxygen saturation in Arterial blood by Pulse oximetry Provider Name and Address Organization Details Last Updated DateTime 2 175.26 cm 40.6 kg/m2 803925. 9 g 97.3 [degF] 70 /min 96 % 96 % Maria Del Carmen [facility] 2 10:52:00 Date Recorded Body height Body mass index (BMI) Body weight Body temperature Heart rate Oxygen saturation Oxygen saturation in Arterial blood by Pulse oximetry Respiratory rate Systolic And Diastolic Provider Name and Address Organization Details Last Updated DateTime 3 175.26 cm 43.6 kg/m2 272923. 75 g 97.3 [degF] 78 /min 97 % 97 % 16 /min 143/76 mm[Hg] [facility] 3 08:48:35 Date Recorded Body weight Body mass index (BMI) Body height Body temperature Heart rate Oxygen saturation Oxygen saturation in Arterial blood by Pulse oximetry Respiratory rate Systolic And Diastolic Provider Name and Address Organization Details Last Updated DateTime 4 212593. 09 g 43.9 kg/m2 175.26 cm 97 [degF] 72 /min 97 % 97 % 16 /min 116/70 mm[Hg] Rosario [facility] 4 09:03:53 Social History Question Answer Notes LastModified by Organizat ion Details LastModified Time Tobacco Smoking Status Never Smoker Tram Otero [facility] 11/26/2021 14:57:58 What Was The Date Of Your Most Recent Tobacco Screening? 12/10/2023 [email or web address] Information not available 12/10/2023 How Many Children Do You Have? 2 Information not available 11/27/2021 What Is Your Relationship Status? [email or web address] Information not available 11/27/2021 Has Tobacco Cessation Counseling Been Provided? No [email or web address] Information not available 11/27/2021 Have You Recently Traveled Abroad? No [email or web address] Information not available 11/27/2021 Sex: Unknown Functional Status Question Answer Note LastModified by Organizat ion Details LastModified Time Do you use any illicit or recreational drugs? No [email or web address] Information not available 11/27/2021 Do you or have you ever used any other forms of tobacco or nicotine? No [email or web address] Information not available 11/27/2021 What is your level of alcohol consumption? Occasional [email or web address] Information not available 11/27/2021 Mental Status None recorded. Family History Relationship Description Onset Age of this Age Resolved Age Notes LastModified by Organization Details LastModified Time Unspecified Relation Diabetes mellitus Not available 11/26 14:54:46 Unspecified Relation Kidney stone [email or web address] Not available 0 11/26/2021 14:55:04 Mother Family history of stroke Not available 11/27 09:27:34 Father Family history of stroke Not available 11/27 09:27:34 Sister Family history of malignant neoplasm [email or web address] Not available 11/27 09:27:57 Medical History Condition Response Pituitary Disorder N Kidney Stones N Hyperthyroidism N Breast Cancer N Implanted Cardiac Device N Hyperparathyroidism N Digestive Problems N Chemotherapy N Lung Disease N Hypothyroidism N Skin Problems N Head & Neck N Gynecological History N Anemia N Back Pain Y Genitourinary Disease N Mental Illness N Diabetes Y Autoimmune disease N Arthritis Y Seizures/Epilepsy N Tuberculosis N Kidney Failure N Radiation Therapy N Cardiac Disease N Malabsorption N High Cholesterol Y Previous Radiation Therapy? N Liver Disease N Dialysis N Hypertension Y Kidney Disease N Past Encounters Encounter ID Performer Location Encounter Start Date Encounter Closed Date Diagnosis/Indication Diagnosis SNOMED-CT Code Diagnosis ICD10 Code Diagnosis Note [id number] BRITT PRAKASH MD [facility] [address] [place] [address] ,[place] [address] 08/01/2020 15:06:38 08/02/2020 15:54:14 [id number] BRITT PRAKASH MD [facility] [address] [place] [id number] 10/17/2020 14:05:45 10/18/2020 13:53:02 [id number] BRITT PRAKASH MD [facility] [address] [place] [id number] 12/05/2020 14:32:04 12/06/2020 09:02:31 [id number] BRITT PRAKASH MD [facility] [address] [place] [id number] 10/02/2021 14:43:59 10/06/2021 08:30:50 [id number] BRITT PRAKASH MD SURGERY SCHEDULE [address] [place] [address] 10/21/2021 14:46:42 10/21/2021 14:47:43 [id number] BRITT PRAKASH MD [facility] [address] [place] [id number] 11/14/2021 10:20:33 11/14/2021 11:40:01 [id number] ELIZA ESPINAL MD [facility] [address] [place] [address] 11/27/2021 08:05:49 11/27/2021 14:33:11 Malignant neoplasm of prostate 681082514 C61 [id number] BRITT PRAKASH MD SURGERY SCHEDULE [address] [place] [address] 1 12/16/2021 11:43:23 12/16/2021 11:43:53 [id number] BRITT PRAKASH MD [facility] [address] [place] [id number] 02/19/2022 15:28:59 02/26/2022 14:36:01 [id number] BRITT PRAKASH MD [facility] [address] [place] [id number] 06/04/2022 12:56:30 06/19/2022 04:38:17 [id number] ELIZA ESPINAL MD [facility] [address] [place] [id number] 06/05/2022 08:45:51 06/05/2022 09:24:17 Malignant neoplasm of prostate 535535125 C61 [id number] BRITT PRAKASH MD [facility] [address],[place] [id number] 09/03/2022 13:05:27 09/03/2022 16:01:48 [id number] ELIZA ESPINAL MD [facility] [address] [place] [id number] 6 12/04/2022 08:38:53 12/04/2022 09:03:00 Malignant neoplasm of prostate 156670176 C61 History of external beam radiation therapy 1177112778 9103 Z92.3 [id number] BRITT PRAKASH MD [facility] [address],[place] [id number] 02/11/2023 16:16:47 02/11/2023 18:11:20 [id number] BRITT PRAKASH MD [facility] [address],[place] [id number] 09/09/2023 13:30:54 09/09/2023 16:46:41 [id number] ELIZA ESPINAL MD [facility] [address] [place] [id number] 12/10/2023 08:43:56 12/10/2023 09:28:48 Malignant neoplasm of prostate 306179140 C61 History of external beam radiation therapy 8716516026 9103 Z92.3 [id number] BRITT PRAKASH MD [facility] [address],[place] [id number] 02/24/2024 13:20:15 02/24/2024 18:39:41 [id number] [facility] [address] [place] [id number] 05/25/2024 14:31:33 05/25/2024 19:05:16 Health Concerns Section Related Observation LastModified by Organization Detai ls LastModified Time None Recorded Concern Status LastModified by Organization Details LastModified Time None Recorded Advance Directives Directive None Recorded Payers Insurance Date Sequence Insurance Name Policy Number Policy Keenan Covered Member ID Keenan Member ID Guarantor Name 06/05/2024 2 [employer] (MEDICARE SUPPLEMENT) Pavel aLngley [id number] Pavel Langley 08/12/2020 1 [facility]ICAID-[facility] CHOICES - FFS/TRADITI ONAL Pavel Langley [id number] Pavel Langley 05/15/2024 1 [place]ARE[place]ARE[place] Pavel Langley [id number] Pavel Langley 10/22/2021 2 [employer] (MEDICARE SUPPLEMENT) Pavel Langley [id number] Pavel Langley Notes Date Note Type Note Provider Name and Address Organization Details Recorded Time 2 text/html Pavel Langley is a 66-year-old gentleman with newly diagnosed prostate cancer who I am seeing today in consultation at the request of Dr. Prakash. His work-up has been as follows: 09/18/21 PSA 4.5 10/21/21 TRUSTransrectal ultrasonography performed showing prostate width of 38.5 mm, height of 21.2 mm, length of 41.4 mm for prostatic volume of 17.7 cm with a PSA density of 0.25 based upon a PSA of 4.5. 10/21/21 Diagnosis:Prostate needle core biopsies (A-F):A) Left base: Benign prostatic tissueB) Left mid: Prostatic adenocarcinoma, Tarun score 3+3 = 6, Grade Group 1, involving one (1) of two (2) cores, at least 20%; see comment.Comment: PIN4 immunohistochemical stain shows a very tiny focus staining at the end of the one core involved by tumor which could possibly represent discontinuous tumor involvement of a larger percent of the core or artifactual false staining.C) Left apex: Prostatic adenocarcinoma, Tarun score 3+3 = 6, Grade Group 1, involving one (1) of two (2) cores, l0%.D) Right base: Benign prostatic tissueE) Right mid: Prostatic adenocarcinoma, [place] score 3+3 = 6, Grade Group 1, involving two (2) of two (2) cores; l0%, 10%.F) Right apex: Prostatic adenocarcinoma, Tarun score 3+3 = 6, Grade Group 1, involving two (2) of two (2) cores; l0% and < 10%. IPSS score today is 8. Dale score is 7. Medical management erectile dysfunction with sildenafil 100 mg ELIZA KEY MD [address] [facility],[address], [place], [address], [facility] 11/27/2021 11:24:17 3 text/html Pavel Langley is a 67-year-old gentleman with newly diagnosed prostate cancer who I am seeing today in consultation at the request of Dr. Prakash. His work-up has been as follows: 09/18/21 PSA 4.5 10/21/21 TRUSTransrectal ultrasonography performed showing prostate width of 38.5 mm, height of 21.2 mm, length of 41.4 mm for prostatic volume of 17.7 cm with a PSA density of 0.25 based upon a PSA of 4.5. 10/21/21 Diagnosis:Prostate needle core biopsies (A-F):A) Left base: Benign prostatic tissueB) Left mid: Prostatic adenocarcinoma, [place] score 3+3 = 6, Grade Group 1, involving one (1) of two (2) cores, at least 20%; see comment.Comment: PIN4 immunohistochemical stain shows a very tiny focus staining at the end of the one core involved by tumor which could possibly represent discontinuous tumor involvement of a larger percent of the core or artifactual false staining.C) Left apex: Prostatic adenocarcinoma, [place] score 3+3 = 6, Grade Group 1, involving one (1) of two (2) cores, l0%.D) Right base: Benign prostatic tissueE) Right mid: Prostatic adenocarcinoma, [place] score 3+3 = 6, Grade Group 1, involving two (2) of two (2) cores; l0%, 10%.F) Right apex: Prostatic adenocarcinoma, Tarun score 3+3 = 6, Grade Group 1, involving two (2) of two (2) cores; l0% and < 10%.IPSS score prior to RT was 8. Dale score was 7.Medical management erectile dysfunction with sildenafil 100 mg 02/04/22 completed SBRT prostate 3625cGy in 5 fractions 03/25/22 PSA 1.7 05/29/22 PSA 0.711 IPSS today:8Shim today: 10 He complains of some intermittent rectal bleeding that he attributes to his hemorrhoids. ELIZA KEY MD [id number] ,[address], [place], [address], [facility] 06/05/2022 09:22:22 3 text/html Pavel Langley is a 67-year-old gentleman with newly diagnosed prostate cancer who I am seeing today in consultation at the request of Dr. Prakash. His work-up has been as follows: 09/18/21 PSA 4.5 10/21/21 TRUSTransrectal ultrasonography performed showing prostate width of 38.5 mm, height of 21.2 mm, length of 41.4 mm for prostatic volume of 17.7 cm with a PSA density of 0.25 based upon a PSA of 4.5. 10/21/21 Diagnosis:Prostate needle core biopsies (A-F):A) Left base: Benign prostatic tissueB) Left mid: Prostatic adenocarcinoma, Tarun score 3+3 = 6, Grade Group 1, involving one (1) of two (2) cores, at least 20%; see comment.Comment: PIN4 immunohistochemical stain shows a very tiny focus staining at the end of the one core involved by tumor which could possibly represent discontinuous tumor involvement of a larger percent of the core or artifactual false staining.C) Left apex: Prostatic adenocarcinoma, [place] score 3+3 = 6, Grade Group 1, involving one (1) of two (2) cores, l0%.D) Right base: Benign prostatic tissueE) Right mid: Prostatic adenocarcinoma, Tarun score 3+3 = 6, Grade Group 1, involving two (2) of two (2) cores; l0%, 10%.F) Right apex: Prostatic adenocarcinoma, [place] score 3+3 = 6, Grade Group 1, involving two (2) of two (2) cores; l0% and < 10%.IPSS score prior to RT was 8. Dale score was 7.Medical management erectile dysfunction with sildenafil 100 mg 02/04/22 completed SBRT prostate 3625cGy in 5 fractions 03/25/22 PSA 1.7 05/29/22 PSA 0.711 06/05/22 IPSS today:8 Dale today: 10 09/04/22 PSA 0.281 11/26/22 PSA 0.202 12/04/22 IPSS 7; DALE 2 no new c/o; hemorrhoidal bleeding is unchanged; no other bleeding and no pain ELIZA KEY MD [id number], [place], [address], [facility] 12/04/2022 09:00:40 4 text/html Pavel Langley is a 67-year-old gentleman with newly diagnosed prostate cancer who I am seeing today in consultation at the request of Dr. Prakash. His work-up has been as follows: 09/18/21 PSA 4.5 10/21/21 TRUSTransrectal ultrasonography performed showing prostate width of 38.5 mm, height of 21.2 mm, length of 41.4 mm for prostatic volume of 17.7 cm with a PSA density of 0.25 based upon a PSA of 4.5.10/21/21 Diagnosis:Prostate needle core biopsies (A-F):A) Left base: Benign prostatic tissueB) Left mid: Prostatic adenocarcinoma, Tarun score 3+3 = 6, Grade Group 1, involving one (1) of two (2) cores, at least 20%; see comment.Comment: PIN4 immunohistochemical stain shows a very tiny focus staining at the end of the one core involved by tumor which could possibly represent discontinuous tumor involvement of a larger percent of the core or artifactual false staining.C) Left apex: Prostatic adenocarcinoma, Tarun score 3+3 = 6, Grade Group 1, involving one (1) of two (2) cores, l0%.D) Right base: Benign prostatic tissueE) Right mid: Prostatic adenocarcinoma, Tarun score 3+3 = 6, Grade Group 1, involving two (2) of two (2) cores; l0%, 10%.F) Right apex: Prostatic adenocarcinoma, Tarun score 3+3 = 6, Grade Group 1, involving two (2) of two (2) cores; l0% and < 10%.IPSS score prior to RT was 8. Dale score was 7.Medical management erectile dysfunction with sildenafil 100 mg 02/04/22 completed SBRT prostate 3625cGy in 5 fractions 03/25/22 PSA 1.7 05/29/22 PSA 0.711 06/05/22 IPSS today:8 Dale today: 10 09/04/22 PSA 0.281 11/26/22 PSA 0.202 12/04/22 IPSS 7; DALE 2 09/07/23 PSA 0.065 12/10/23 IPSS 5 no new c/o; hemorrhoidal bleeding is unchanged; no other bleeding and no painHad massive PE requiring interventions but is recovering on blood thinners now ELIZA KEY MD [address], [place], [address], [facility] 12/10/2023 09:27:05
--- OUTSIDE RECORDS SUMMARY | 2024-10-18 07:35 | XMS_ITS ---
Author Organization Unknown [facility] Start Date Provider Encounter for Check-up [phone] [facility]
--- OUTSIDE RECORDS SUMMARY | 2024-10-18 07:35 | XMS_ITS | Encounter Summary ---
Author Organization [facility] Address [address] [place] [address] Care Team Providers Care Early Childhood Name Role Phone Dion Butts MD Primary Care Provider Myrna vailable Encounter Details Date Type Department Care Team (Late Contact Info) Description 10/02/2024 Orders Only [facility] [address] [place] [address] Asuncion Larson Proteinuria, unspecified type (Primary Dx); Stage 3 chronic kidney disease, unspecified whether stage 3a or 3b CKD (CMS/HCC) Social History Tobacco Use Types Packs/Day Years Used Date Smoking Tobacco: Never Assessed Sex and Gender Information Value Date Recorded Sex Assigned at Not on file Legal Sex Male 8:35 PM EDT Gender Identity Not on file Sexual Orientation Not on file documented as of this encounter Plan of Treatment Upcoming Encounters Date Type Department Care Team (Late Contact Info) Description 11/01/2024 1:00 PM EDT Office Visit [facility] Nephrology, Bone & Mineral Metabolism [address], [address] [place] [address] Frank Luther MD [address] [place] [phone] Scheduled Orders Name Type Priority Associated Diagnoses Orde r Schedule Renal Function Panel, Plasma Lab Routine Proteinuria, unspecified type Stage 3 chronic kidney disease, unspecified whether stage 3a or 3b CKD (CMS/HCC) Expected: 10/02/2024 (Approximate), Expires: 04/03/2026 CBC W/O Differential Lab Routine Proteinuria, unspecified type Stage 3 chronic kidney disease, unspecified whether stage 3a or 3b CKD (CMS/HCC) Expected: 10/02/2024 (Approximate), Expires: 04/03/2026 Vitamin D 25 Hydroxy Lab Routine Proteinuria, unspecified type Stage 3 chronic kidney disease, unspecified whether stage 3a or 3b CKD ([facility]/HCC) Expected: 10/02/2024 (Approximate), Expires: 04/03/2026 PTH Intact Total Lab Routine Proteinuria, unspecified type Stage 3 chronic kidney disease, unspecified whether stage 3a or 3b CKD ([facility]/HCC) Expected: 10/02/2024 (Approximate), Expires: 04/03/2026 Urinalysis with reflex microscopic (Culture NOT Included) Lab Routine Proteinuria, unspecified type Stage 3 chronic kidney disease, unspecified whether stage 3a or 3b CKD ([facility]) Expected: 10/02/2024 (Approximate), Expires: 04/03/2026 Protein, Random, Urine with Creatinine Lab Routine Proteinuria, unspecified type Stage 3 chronic kidney disease, unspecified whether stage 3a or 3b CKD ([facility]) Expected: 10/02/2024 (Approximate), Expires: 04/03/2026 Creatinine, Random, Urine Lab Routine Proteinuria, unspecified type Stage 3 chronic kidney disease, unspecified whether stage 3a or 3b CKD ([facility]) Expected: 10/02/2024 (Approximate), Expires: 04/03/2026 documented as of this encounter Visit Diagnoses Diagnosis Proteinuria, unspecified type- Primary Stage 3 chronic kidney disease, unspecified whether stage 3a or 3b CKD (CMS/HCC) documented in this encounter Care Teams Early Childhood Relationship Specialty Start Date End Date Dion Butts MD PCP - General Family Medicine 05/11/24 documented as of this encounter
[2024-10-18 08:30] VITALS: PULSE 60
[2024-10-18] MEDS: ALBUTEROL 0.083% 2.5 MG/3 ML NEB IH (08:30)
== END 2024-10-18 23:59 | disposition home or self-care (01) ==
LOC: RT 07:33
PROVIDERS: PCP Family Medicine; Visit Provider Internal Medicine Pulmonary Disease
DX: R94.2 Abnormal results of pulmonary function studies (principal); R06.09 Other forms of dyspnea; R06.02 Shortness of breath
CPT/HCPCS: 94060; 94618; 94640; 94726; 94729

== ENCOUNTER 2024-10-28 08:10 | Outpatient (CLI) | payer MEDICARE, OTHER, SELFPAY ==
--- OUTSIDE RECORDS SUMMARY | 2017-12-04 20:00 | XMS_ITS | Continuity of Care Document ---
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 [address], [place], [id number] , [place]. tel: [phone] Referring Provider: Evans Mays, [address] [place] [place], [address]. tel:[phone] [facility], [address] [place], [id number], [place] tel:[phone] [facility] Inpatient No Information 8 Juan Duron. [address] [place], [place], [id number] , [place]. tel:[phone] Referring Provider: Evans Mays, [address] [place], [address]. tel:[phone] Family History Family Member Type Diagnosis Age At Onset No Information Payers Payer name Insurance type Covered green party ID Authoriza tion(s) Medicare Part B [id number] Medicaid [id number] Social History Type Description Quantity Date Captured Comments Sex Male Smoking Status No Information Chief Complaint And Reason For Visit No Information Reason For Referral Reason For Referral No Information History Of Present Illness Encounter Date Complaint History Of Prese nt Illness No Information Functional Status Date Functional Assessmen t No Information Instructions Date Instruction Additional Infor mation No Information Assessments Type Assessment Date No Information Patient Care Teams Name Effective Dates (start - stop) Status Members No Information
--- OUTSIDE RECORDS SUMMARY | 2024-10-28 08:15 | XMS_ITS | Clinical Summary ---
Author Organization [facility] Address [address] [place] [address] Care Team Providers Care Radius Grinder Name Role Phone Provider, No Known Primary Care Provider Unavail able Allergies Active Allergy Reactions Criticality Noted Date Comments Hydrocodone-Acetamin ophen Other (See Comments) Medium 10/12/2016 NIGHT SWEATS/SHAKING Medications hydrochlorothiaz antonio (MICROZIDE) 12.5 MG capsule Take 12.5 mg by mouth Daily. Active BISOPROLOL FUMARATE PO Take by mouth. Active omeprazole (priLOSEC) 20 MG capsule Take 20 mg by mouth Daily. Active atorvastatin (LIPITOR) 40 MG tablet Take 40 mg by mouth Daily. Active glipiZIDE (GLUCOTROL) 5 MG tablet Take 5 mg by mouth 2 (Two) Times a Day Before Meals. Active metFORMIN (GLUCOPHAGE) 500 MG tablet Take 500 mg by mouth 2 (Two) Times a Day With Meals. Active fenofibrate (TRICOR) 54 MG tablet Take 54 mg by mouth Daily. Active amoxicillin-clav ulanate (AUGMENTIN) 875-125 MG per tabletIndication s:Acute pansinusitis, recurrence not specified Take 1 tablet by mouth 2 (Two) Times a Day. 20 tablet 10/12/2016 Active Active Problems No known active problems Family History Medical History Relation Name Comments Heart disease Father Stroke Father Stroke Mother Relation Name Status Comments Father Mother Social History Tobacco Use Types Packs/Day Years Used Date Smoking Tobacco: Never Abuse Screen Answer Date Recorded Unsafe at Home or Work/School Not on file Feels Threatened by Someone? Not on file 02/2023 Does Anyone Keep You from Co ntacting Others or Doint Things Outside the Home? Not on file 01/20/2023 Physical Sign of Abuse Present Not on file 1 Housing Stability Answer Date Recorded Current Living Arrangements Not on file 01/10 Potentially Unsafe Housing Conditions Not on medardo e 01/20/2023 Family and Community Support Answer Robert e Recorded Help with Day-to-Day Activities Not on file 01/20/2023 Lonely or Isolated Not on file 01/20/2023 Employment Answer Date Recorded Do you want help finding or keeping work or a mervin b? Not on file 01/20/2023 Disabilities Answer Date Recorded Concentrating, Remembering, or Making Decisions Difficulty Not on file 01/20/2023 Doing Errands Independently Difficulty Not on fi le 01/20/2023 Education Answer Date Recorded Help with school or training? Not on file Preferred Language Not on file 01/20/2023 Sex and Gender Information Value Date Recorded Sex Assigned at Not on file Legal Sex Male 9:33 AM EDT Gender Identity Not on file Sexual Orientation Not on file Last Filed Vital Signs Vital Sign Reading Time Taken Comments Blood Pressure - - Pulse 104 10/12/2016 9:50 AM EDT Temperature 36.7 C (98 F) 10/12/2016 9:50 AM EDT Respiratory Rate 16 10/12/2016 9:50 AM EDT Oxygen Saturation 96% 10/12/2016 9:50 AM EDT Inhaled Oxygen Concentration - - Weight 133 kg (292 lb 12.8 oz) 10/12/2016 9:50 A M EDT Height 175.3 cm (5' 9 ) 10/12/2016 9:50 AM EDT Body Mass Index 43.24 10/12/2016 9:50 AM EDT Plan of Treatment Health Maintenance Due Date Last Done Comments TDAP/TD VACCINES (1 - Tdap) 1974 COLOGUARD 2000 COLON CANCER SCREENING 5 YEAR SIGMOIDOSCOPY 2000 COLONOSCOPY [address]CER SCREENING 2000 CT COLONOGRAPHY 2000 FECAL OCCULT BLOOD TEST 2000 FIT Testing (1 year) 2000 Pneumococcal Vaccine 50+ (1 of 1 - PCV) 2005 ZOSTER VACCINE (1 of 2) 2005 ANNUAL PHYSICAL 10/12/2016 HEPATITIS C SCREENING 10/12/2016 AAA SCREEN ONCE 2020 COVID-19 Vaccine (2023- season) 2023 INFLUENZA VACCINE 01/10/2025 Insurance MEDICARE A & B Care Teams Radius Grinder Relationship Specialty Start Date End Date Provider, No Known [facility] [place] [address] PCP - General 10/12/16
--- OUTSIDE RECORDS SUMMARY | 2024-10-28 08:15 | XMS_ITS | Data Portability ---
Author Organization [facility] KARLO Myers [facility] [employer]OS[facility] Address [address] [facility] [address] [place] [address] Care Team Providers Care Door Clamper Name Role Phone DAVID ROTH Primary Care Provider Assessment Encounter Date Assessment Date Assessment LastModified by Organization Details LastModified Time 09/03/2022 09/03/2022 Printed order fo r PSA provided. PSA continues to down trend. Monitor lower urinary symptoms. Medical management of erectile dysfunction with phosphodiesterase inhibitor, sildenafil and tadalafil. [email or web address] Not available 09/07/2022 08:50:30 02/11/2023 02/11/2023 PSA continues to down trend. Check PSA with order provided at appt to be performed at earliest convenience. Monitor lower urinary symptoms. [email or web address] Not available 02/14/2023 10:15:05 09/09/2023 09/09/2023 PSA continues to down trend. Monitor lower urinary symptoms. Follow-up in 6 months. [email or web address] Not available 09/12/2023 11:51:15 02/24/2024 02/24/2024 Continue to betty tor PSA trend and lower urinary symptoms. If the lesion of the penis fails to resolve or worsens we will consider biopsy. [email or web address] Not available 02/26/2024 11:52:48 05/25/2024 05/25/2024 Continue to betty tor PSA trend and lower urinary symptoms. If the lesion of the penis fails to resolve or worsens we will consider biopsy. [email or web address] Not available 06/04/2024 19:57:58 Plan of Treatment Reminders Order Date Submit Date Provider Last Modified By Organization Details Last Modified Time Details Appointments RECHECK 2024 01:30P M BRITT OHARA MD Not available Not available Not available RECHECK 2024 09:30A M ELIZA PADILLA MD Not available Not available Not available Lab urinalysi s panel, auto 2024 025 4 [facility] With [address] [place], [place], [address], 06/04/2024 19:58:50 urinalysi s panel, auto 2023 024 [email or web address] [id number] [facility] With [address] [place], [place], [address], 09/12/2023 11:51:18 Referral None recorded. Procedures None recorded. Surgeries None recorded. Imaging None recorded. Medication Orders None recorded. Patient TargetsNo targets recorded. Patient Instructions Encounter Date Encounter Id Patient Instructions Last Modified By Organization Details Last Modified Time 09/03/2022 [id number] learning about healthy weight [email or web address] Not available 09/07/2022 08:50:31 02/11/2023 [id number] learning about healthy weight [email or web address] Not available 02/14/2023 10:15:05 09/09/2023 [id number] learning about healthy weight [email or web address] Not available 09/12/2023 11:51:16 02/24/2024 [id number] learning about healthy weight [email or web address] Not available 02/26/2024 11:52:48 05/25/2024 [id number] learning about healthy weight [email or web address] Not available 06/04/2024 19:58:50 Reason for Referral None Reported. Results Created Date Observation Date Name Description Value Unit Range Abnormal Flag Note LastModifiedBy Organization Detail LastModifiedTime 09/09/19 24 09/09/2023 urina lysis panel , auto Unknown Analyte Clean Catch Not Available [facility] With [address] [place], [address], 09/09/2023 13:59:30 09/09/19 24 09/09/2023 urina lysis panel , auto Unknown Analyte Yellow Not Available [facility] With [address] [place], [place], [address], 09/09/2023 13:59:30 09/09/19 24 09/09/2023 urina lysis panel , auto Unknown Analyte Clear Not Available [facility] With [address], [place], [address], 09/09/2023 13:59:30 09/09/19 24 09/09/2023 urina lysis panel , auto Unknown Analyte 1.020 Not Available [facility] With [address] [place], [place], [address], 09/09/2023 13:59:30 09/09/19 24 09/09/2023 urina lysis panel , auto Unknown Analyte 1.003- 1.035 Not Available [facility] With [address] [place], [place], [address], 09/09/2023 13:59:30 09/09/19 24 09/09/2023 urina lysis panel , auto Unknown Analyte 5.0 Not Available [facility] With [address] [place], [place], [address], 09/09/2023 13:59:30 09/09/19 24 09/09/2023 urina lysis panel , auto Unknown Analyte 5.0-8. 0 Not Available [facility] With [address] [place], [place], [address], 09/09/2023 13:59:30 09/09/19 24 09/09/2023 urina lysis panel , auto Unknown Analyte Negati ve Not Available [facility] With [address] [place], [place], [address], 09/09/2023 13:59:30 09/09/19 24 09/09/2023 urina lysis panel , auto Unknown Analyte Negati ve Not Available [facility] With [address] [place], [address], 09/09/2023 13:59:30 09/09/19 24 09/09/2023 urina lysis panel , auto Unknown Analyte Negati ve Not Available [facility] With [address] [place], [address], 09/09/2023 13:59:30 09/09/19 24 09/09/2023 urina lysis panel , auto Unknown Analyte Negati ve Not Available [facility] With [address] [place], [address], 09/09/2023 13:59:30 09/09/19 24 09/09/2023 urina lysis panel , auto Unknown Analyte Negati ve Not Available [facility] With [address] [place], [address], 09/09/2023 13:59:30 09/09/19 24 09/09/2023 urina lysis panel , auto Unknown Analyte Negati ve Not Available [facility] With [address] [place], [address], 09/09/2023 13:59:30 09/09/19 24 09/09/2023 urina lysis panel , auto Unknown Analyte Normal Not Available [facility] Services With [address] [place], [address], 09/09/2023 13:59:30 09/09/19 24 09/09/2023 urina lysis panel , auto Unknown Analyte Normal Not Available [facility] Extended Services With [address] [place], [address], 09/09/2023 13:59:30 09/09/19 24 09/09/2023 urina lysis panel , auto Unknown Analyte Negati ve Not Available [facility] With [address] [place], [address], 09/09/2023 13:59:30 09/09/19 24 09/09/2023 urina lysis panel , auto Unknown Analyte Negati ve Not Available [facility] With [address] [place], [address], 09/09/2023 13:59:30 09/09/19 24 09/09/2023 urina lysis panel , auto Unknown Analyte Normal Not Available [facility] Services With [address] [place], [address], 09/09/2023 13:59:30 09/09/19 24 09/09/2023 urina lysis panel , auto Unknown Analyte Normal 1 mg/dl Not Available [facility] With [address] [place], [address], 09/09/2023 13:59:30 09/09/19 24 09/09/2023 urina lysis panel , auto Unknown Analyte Negati ve Not Available [facility] With [address] [place], [address], 09/09/2023 13:59:30 09/09/19 24 09/09/2023 urina lysis panel , auto Unknown Analyte Negati ve Not Available [facility] With [address] [place], [address], 09/09/2023 13:59:30 09/09/19 24 09/09/2023 urina lysis panel , auto Unknown Analyte Negati ve Not Available [facility] With [address] [place], [address], 09/09/2023 13:59:30 09/09/19 24 09/09/2023 urina lysis panel , auto Unknown Analyte Negati ve Not Available [facility] With [address] [place], [address], 09/09/2023 13:59:30 05/25/19 25 05/25/2024 urina lysis panel , auto Unknown Analyte Clean Catch Not Available [facility] With [address] [place], [address], 05/25/2024 15:07:14 05/25/19 25 05/25/2024 urina lysis panel , auto Unknown Analyte Yellow Not Available [facility] With [address] [place], [place], [address], 05/25/2024 15:07:14 05/25/19 25 05/25/2024 urina lysis panel , auto Unknown Analyte Clear Not Available [facility] Services With [address] [place], [place], [address], 05/25/2024 15:07:14 05/25/19 25 05/25/2024 urina lysis panel , auto Unknown Analyte 1.010 Not Available [facility] Services With [address] [place], [address], 05/25/2024 15:07:14 05/25/19 25 05/25/2024 urina lysis panel , auto Unknown Analyte 1.003- 1.035 Not Available [facility] With [address] [place], [place], [address], 05/25/2024 15:07:14 05/25/19 25 05/25/2024 urina lysis panel , auto Unknown Analyte 5.0 Not Available [facility] With [address] [place], [address], 05/25/2024 15:07:14 05/25/19 25 05/25/2024 urina lysis panel , auto Unknown Analyte 5.0-8. 0 Not Available [facility] With [address] [place], [address], 05/25/2024 15:07:14 05/25/19 25 05/25/2024 urina lysis panel , auto Unknown Analyte Negati ve Not Available [facility] With [address] [place], [address], 05/25/2024 15:07:14 05/25/19 25 05/25/2024 urina lysis panel , auto Unknown Analyte Negati ve Not Available [facility] With [address] [place], [address], 05/25/2024 15:07:14 05/25/19 25 05/25/2024 urina lysis panel , auto Unknown Analyte Negati ve Not Available [facility] With [address] [place], [address], 05/25/2024 15:07:14 05/25/19 25 05/25/2024 urina lysis panel , auto Unknown Analyte Negati ve Not Available [facility] With [address] [place], [address], 05/25/2024 15:07:14 05/25/19 25 05/25/2024 urina lysis panel , auto Unknown Analyte Negati ve Not Available [facility] With [address] [place], [place], [address], 05/25/2024 15:07:14 05/25/19 25 05/25/2024 urina lysis panel , auto Unknown Analyte Negati ve Not Available [facility] With [address] [place], [address], 05/25/2024 15:07:14 05/25/19 25 05/25/2024 urina lysis panel , auto Unknown Analyte >1000 mg/dl Not Available [facility] With [address] [place], [address], 05/25/2024 15:07:14 05/25/19 25 05/25/2024 urina lysis panel , auto Unknown Analyte Normal Not Available [facility] Services With [address] [place], [place], [address], 05/25/2024 15:07:14 05/25/19 25 05/25/2024 urina lysis panel , auto Unknown Analyte Negati ve Not Available [facility] With [address] [place], [place], [address], 05/25/2024 15:07:14 05/25/19 25 05/25/2024 urina lysis panel , auto Unknown Analyte Negati ve Not Available [facility] With [address] [place], [address], 05/25/2024 15:07:14 05/25/19 25 05/25/2024 urina lysis panel , auto Unknown Analyte Normal Not Available [facility] Services With [address] [place], [place], [address], 05/25/2024 15:07:14 05/25/19 25 05/25/2024 urina lysis panel , auto Unknown Analyte Normal 1 mg/dl Not Available [facility] With [address] [place], [place], [address], 05/25/2024 15:07:14 05/25/19 25 05/25/2024 urina lysis panel , auto Unknown Analyte Negati ve Not Available [facility] With [address] [place], [place], [address], 05/25/2024 15:07:14 05/25/19 25 05/25/2024 urina lysis panel , auto Unknown Analyte Negati ve Not Available [facility] With [address] [place], [place], [address], 05/25/2024 15:07:14 05/25/19 25 05/25/2024 urina lysis panel , auto Unknown Analyte Negati ve Not Available [facility] With [address] [place], [place], [address], 05/25/2024 15:07:14 05/25/19 25 05/25/2024 urina lysis panel , auto Unknown Analyte Negati ve Not Available [facility] With [address] [place], [place], [address], 05/25/2024 15:07:14 Result Notes None recorded. Procedures Surgical History Date Name Laterality Status Provider Name and Address Organization Details Recorded Time 12/17/19 ultrasonography guided insertion of gold seed marker completed Jannette Forte [facility] 02/19/2022 15:47:03 [facility] 15:57:24 [facility] 15:57:35 total knee replacement completed [facility] 08/01/2020 15:58:38 Imaging Results None recorded. Procedure Notes None recorded. Medical Equipment None Reported. Allergies Allergen ID Allergen Name Allergen Category Reaction Reaction Severity Criticality Documentation Date Start Date Code Code System Note Provider Name and Address Organization Details Recorded Time 757395 hydrocodo ne Not available Not available Not available Not available 08/01/2020 5489 RxNorm [facility] 15:53:46 Medications Name Sig Start Date Stop [...] Updated DateTime 05/25/2024 175.26 cm 40.6 kg/m2 216283.9 g [facility] 05/25/2024 15:05:39 Date Recorded Body height Body mass index (BMI) Body weight Provider Name and Address Organization Details Last Updated DateTime 09/03/2022 175.26 cm 40.6 kg/m2 448409.9 [facility] 09/03/2022 13:36:11 Date Recorded Body height Body mass index (BMI) Body weight Provider Name and Address Organization Details Last Updated DateTime 09/09/2023 175.26 cm 43 kg/m2 721836.38 g [facility] 09/09/2023 13:59:26 Date Recorded Body height Body mass index (BMI) Body weight Provider Name and Address Organization Details Last Updated DateTime 02/11/2023 175.26 cm 40.6 kg/m2 293222.9 g [facility] 02/11/2023 16:29:53 Date Recorded Body height Body mass index (BMI) Body weight Provider Name and Address Organization Details Last Updated DateTime 02/24/2024 175.26 cm 42.1 kg/m2 162396.83 g Jannette Forte [facility] 02/24/2024 18:18:40 Social History Question Answer Notes LastModified by Organizat ion Details LastModified Time Tobacco Smoking Status Never Smoker David crowe [facility] 08/01/2020 15:56:59 Marital Status Informatio n not [...] Details LastModified Time Unspecified Relation Kidney stone lemuel Not available 15:56:38 Unspecified Relation Diabetes mellitus lemuel Not available 2020 15:56:48 Medical History Condition Response Diabetes Y False Teeth Y Hypertension Y Past Encounters Encounter ID Performer Location Encounter Start Date Encounter Closed Date Diagnosis/Indication Diagnosis SNOMED-CT Code Diagnosis ICD10 Code Diagnosis Note [id number] BRITT OHARA MD [facility] [address] [address] 08/01/2020 15:06:38 08/02/2020 15:54:14 Primary erectile dysfunction 773023176 N52.9 Benign pro static hyperplasia with outflow obstruction 519309830 N40.1 [id number] BRITT OHARA MD [facility] [address] [address] 10/17/2020 14:05:45 10/18/2020 13:53:02 Primary erectile dysfunction 779337131 N52.9 Benign pro static hyperplasia with outflow obstruction 781671587 N40.1 [id number] BRITT OHARA MD [facility] [address] [address] 12/05/2020 14:32:04 12/06/2020 09:02:31 Primary erectile dysfunction 960503636 N52.9 Benign pro static hyperplasia with outflow obstruction 848848236 N40.1 [id number] BRITT OHARA MD [facility] [address] [place] [address] 10/02/2021 14:43:59 10/06/2021 08:30:50 Prostate specific antigen above reference range 849237390 R97.20 Primary er ectile dysfunction 197580181 N52.9 [id number] BRITT OHARA MD SURGERY SCHEDULE [address] [place] [address] 10/21/2021 14:46:42 10/21/2021 14:47:43 [id number] BRITT OHARA MD [facility] [address] [place] [address] 11/14/2021 10:20:33 11/14/2021 11:40:01 Malignant neoplasm of prostate 581850241 C61 Prostate s pecific antigen above reference range 149206852 R97.20 [id number] ELIZA ESPINAL MD [facility] [place] [address] [place] [address] 11/27/2021 08:05:49 11/27/2021 14:33:11 [id number] BRITT OHARA MD SURGERY SCHEDULE [address] [place] [address] 12/16/2021 11:43:23 12/16/2021 11:43:53 [id number] BRITT OHARA MD [facility] [address] [address] 02/19/2022 15:28:59 02/26/2022 14:36:01 Malignant neoplasm of prostate 244288859 C61 Prostate s pecific antigen above reference range 249994198 R97.20 [id number] BRITT OHARA MD [facility] [address] [address] 06/04/2022 12:56:30 06/19/2022 04:38:17 Malignant neoplasm of prostate 992464979 C61 Prostate s pecific antigen above reference range 101783671 R97.20 Primary er ectile dysfunction 527921656 N52.9 [id number] ELIZA ESPINAL MD [facility] [place] [address] [place] [address] 06/05/2022 08:45:51 06/05/2022 09:24:17 [id number] BRITT OHARA MD [facility] [address] [place] [address] 09/03/2022 13:05:27 09/03/2022 16:01:48 Malignant neoplasm of prostate 302492751 C61 Prostate s pecific antigen above reference range 014360823 R97.20 Primary er ectile dysfunction 917560929 N52.9 [id number] ELIZA ESPINAL MD [facility] [place] [address] [place] [address] 12/04/2022 08:38:53 12/04/2022 09:03:00 [id number] BRITT OHARA MD [facility] [address] [place] [address] 02/11/2023 16:16:47 02/11/2023 18:11:20 Malignant neoplasm of prostate 287560369 C61 Prostate s pecific antigen above reference range 214640772 R97.20 Primary er ectile dysfunction 105186738 N52.9 [id number] BRITT OHARA MD [facility] [address] [place] [address] 09/09/2023 13:30:54 09/09/2023 16:46:41 Malignant neoplasm of prostate 996582755 C61 Prostate s pecific antigen above reference range 482049460 R97.20 Secondary erectile dysfunction 128794729 N52.39 [id number] ELIZA ESPINAL MD [facility] [place] [address] [place] [address] 6 12/10/2023 08:43:56 12/10/2023 09:28:48 [id number] BRITT OHARA MD [facility] [address] [place] [address] 02/24/2024 13:20:15 02/24/2024 18:39:41 Malignant neoplasm of prostate 492241341 C61 Balanitis xerotica obliterans 192582471 N48.0 [id number] BRITT OHARA MD [facility] [address] [place] [address],[place] [address] 05/25/2024 14:31:33 05/25/2024 19:05:16 History of malignant neoplasm of prostate 086567885 Z85.46 Balanitis xerotica obliterans 548486748 N48.0 Health Concerns Section Related Observation LastModified by Organization Detai ls LastModified Time None Recorded Concern Status LastModified by Organization Details LastModified Time None Recorded Advance Directives Directive None Recorded Payers Insurance Date Sequence Insurance Name Policy Number Policy Keenan Covered Member ID Keenan Member ID Guarantor Name 06/05/2024 2 [employer] (MEDICARE SUPPLEMENT) Pavel Zapata [id number] Pavel Zapata 08/12/2020 [facility] Pavel Zapata [id number] Pavel Zapata 05/15/2024 1 [place] Pavel Zapata [id number] Pavel Zapata 10/22/2021 2 [employer] (MEDICARE SUPPLEMENT) Pavel Zapata [id number] Pavel Zapata Notes Date Note Type Note [...] tadalafil. PSAFebruary 2022-0.711December 2021-1.7 BRITT OHARA MD [address] [place] [address], [phone], [facility] 09/07/2022 09:27:30 02/11/2023 text/html 67-year-old male in [...] PSAMay 2022-0.281February 2023-0.711December 2021-1.7 BRITT OHARA MD [address] [place] [address], [phone], [facility] 02/14/2023 10:15:23 09/09/2023 text/html 68-year-old male in [...] 2022-0.095May 2022-0.281February 2022-0.711December 2021-1.7 BRITT OHARA MD [address] [place] [address], [phone], [facility] 09/12/2023 11:51:31 02/24/2024 text/html 68-year-old male in [...] 3-0.281February 3-0.711December 2021-1.7 BRITT OHARA MD [address] [place], [address], [place] [facility] 02/26/2024 11:53:03 05/25/2024 text/html 69-year-old male in [...] 2022-0.095May 2022-0.281February 2022-0.711December 2021-1.7 BRITT OHARA MD [facility] [place], [address], [place] [facility] 06/04/2024 19:59:06
--- OUTSIDE RECORDS SUMMARY | 2024-10-28 08:15 | XMS_ITS | Data Portability ---
Author Organization [facility], [facility] Address [address] [place] [address] Care Team Providers Care Greenskeeper Name Role Phone BRITT PRAKASH Referring Provider ELIZA KEY Radiation Oncologist DAVID ROTH Primary Care Provider Assessment Encounter Date Assessment Date Assessment LastModified by Organization Details LastModified Time 11/27/2021 11/27/2021 Pavel is a 66-year-old gentleman with clinical stage T1 cN0 M0 grade group 1 Smackover 6 prostate adenocarcinoma with a pretreatment PSA [...] stage T1 cN0 M0 grade group 1 Smackover 6 prostate adenocarcinoma with a pretreatment PSA [...] stage T1 cN0 M0 grade group 1 Smackover 6 prostate adenocarcinoma with a pretreatment PSA [...] pelvi s, w/wo contr ast [place] [address] [place] [address] Patien t Name: SILVANA MULLINS Patien t [...] mL (1 x 15 mL bottle of [facility] 92579- [id number] ) IV. The patien t did not requir e sedati on for this exam. COMPAR DARION: None. FINDIN GS: PROSTA TE SIZE MEASUR EMENTS : Prosta te dimens ions = 3.5 x 3.3 x 3.1 cm (T x AP x CC). Rectum is empty. The fat plane betwee n the pbx operator ior aspect of the prosta te gland [...] Seen best in image 17 of series 18649, 8006, 8007, and image 137 of series 88980. It is positi ve on T2 WI, [...] Pritesh Macias MD on 022 9:[email or web address] [address] [place] [address], [phone], 01/14/2022 08:40:14 Result Notes Documentation Provider Name and Address Organization Details Recorded Time Mri, Pelvis, W/wo Contrast : [address] [address] Patient Name: PAVEL LANGLEY Patient : 1955 [...] mL (1 x 15 mL bottle of [facility] [id number]) IV. The patient did not require sedation [...] Seen best in image 17 of series 93298, 8006, 8007, and image 137 of series 51379. It is positive on T2 WI, ADC, [...] By: Ramez Macias MD [address], [place], [address], [facility] 01/14/2022 08:40:14 Problems Name Problem SNOMED Code Status Onset Date Resolution Date Notes Provider Name and Address Organization Details Recorded Time Malignant neoplasm of prostate 538696345 Active [address] [place], [address], [facility] 2 11:24:13 History of external beam radiation therapy 001533670379 03 Active [address] [place], [address], [facility] 3 08:52:04 Problem Notes None recorded. Procedures Surgical History Date Name Laterality Status Provider Name and Address Organization Details Recorded Time Appendectomy completed [facility] 11/26/2021 14:58:07 cholecystectomy completed [facility] 11/26/2021 14:59:13 total knee replacement completed [facility] 11/27/2021 09:29:38 extraction of cataract completed [facility] 11/27/2021 09:29:53 extraction of cataract completed [facility] 11/27/2021 09:29:54 Blood clot retraction completed Rosario [facility] 12/10/2023 09:00:26 Imaging Results None recorded. Procedure Notes None recorded. Medical Equipment None Reported. Allergies Allergen ID Allergen Name Allergen Category Reaction Reaction Severity Criticality Documentation Date Start Date Code Code System Note Provider Name and Address Organization Details Recorded Time 027851 hydrocodo ne Not available Not available Not available Not available 11/17/2021 5489 RxNorm Brenda Tariq [facility] 15:28:41 Medications Name Sig Start Date Stop [...] Updated DateTime 3 175.26 cm 42.9 kg/m2 231628. 94 g 97.21 [degF] 79 /min 96 % 96 % 143/49 mm[Hg] Tram [facility] 3 08:53:01 Date Recorded Body height Body mass index (BMI) Body weight Body temperature Heart rate Oxygen saturation Oxygen saturation in Arterial blood by Pulse oximetry Provider Name and Address Organization Details Last Updated DateTime 2 175.26 cm 40.6 kg/m2 674164. 9 g 97.3 [degF] 70 /min 96 % 96 % Maria Del Carmen [facility] 2 10:52:00 Date Recorded Body height Body mass index (BMI) Body weight Body temperature Heart rate Oxygen saturation Oxygen saturation in Arterial blood by Pulse oximetry Respiratory rate Systolic And Diastolic Provider Name and Address Organization Details Last Updated DateTime 3 175.26 cm 43.6 kg/m2 844337. 75 g 97.3 [degF] 78 /min 97 % 97 % 16 /min 143/76 mm[Hg] [facility] 3 08:48:35 Date Recorded Body weight Body mass index (BMI) Body height Body temperature Heart rate Oxygen saturation Oxygen saturation in Arterial blood by Pulse oximetry Respiratory rate Systolic And Diastolic Provider Name and Address Organization Details Last Updated DateTime 4 507032. 09 g 43.9 kg/m2 175.26 cm 97 [degF] 72 /min 97 % 97 % 16 /min 116/70 mm[Hg] Rosario [facility] 4 09:03:53 Social History Question Answer Notes LastModified by Organizat ion Details LastModified Time Tobacco Smoking Status Never Smoker Tram Otero [facility] 11/26/2021 14:57:58 What Was The Date Of Your Most Recent Tobacco Screening? 12/10/2023 [email or web address] Information not available 12/10/2023 How Many Children Do You Have? 2 [email or web address] Information not available 11/27/2021 What Is Your Relationship Status? [email or web address] Information not available 11/27/2021 Has Tobacco Cessation Counseling Been Provided? No [email or web address] Information not available 11/27/2021 Have You Recently Traveled Abroad? No [email or web address] Information not available 11/27/2021 Sex: Unknown Functional Status Question Answer Note LastModified by Organizat ion Details LastModified Time Do you use any illicit or recreational drugs? No [email or web address] Information not available 11/27/2021 Do you or have you ever used any other forms of tobacco or nicotine? No [email or web address] Information not available 11/27/2021 What is your level of alcohol consumption? Occasional [email or web address] Information not available 11/27/2021 Mental Status None recorded. Family History Relationship Description Onset Age of this Age Resolved Age Notes LastModified by Organization Details LastModified Time Unspecified Relation Diabetes mellitus [email or web address] Not available 11/26 14:54:46 Unspecified Relation Kidney stone [email or web address] Not available 0 11/26/2021 14:55:04 Mother Family history of stroke [email or web address] Not available 11/27 09:27:34 Father Family history of stroke [email or web address] Not available 11/27 09:27:34 Sister Family history of malignant neoplasm [email or web address] Not available 11/27 09:27:57 Medical History Condition Response Pituitary Disorder N Kidney Stones N Hyperthyroidism N Implanted Cardiac Device N Breast Cancer N Hyperparathyroidism N Digestive Problems N Chemotherapy N Hypothyroidism N Lung Disease N Skin Problems N Head & Neck N Anemia N Gynecological History N Back Pain Y Genitourinary Disease N Mental Illness N Diabetes Y Autoimmune disease N Arthritis Y Seizures/Epilepsy N Tuberculosis N Kidney Failure N Cardiac Disease N Radiation Therapy N Malabsorption N High Cholesterol Y Previous Radiation Therapy? N Liver Disease N Dialysis N Hypertension Y Kidney Disease N Past Encounters Encounter ID Performer Location Encounter Start Date Encounter Closed Date Diagnosis/Indication Diagnosis SNOMED-CT Code Diagnosis ICD10 Code Diagnosis Note [id number] BRITT PRAKASH MD [facility] [address] [place] [address] ,[place] [address] 08/01/2020 15:06:38 08/02/2020 15:54:14 [id number] BRITT PRAKASH MD [facility] [address] [place] [id number] 10/17/2020 14:05:45 10/18/2020 13:53:02 [id number] BRITT PRAKASH MD [facility] [address] [place] [id number] 12/05/2020 14:32:04 12/06/2020 09:02:31 [id number] BRITT PRAKASH MD [facility] [address] [place] [id number] 10/02/2021 14:43:59 10/06/2021 08:30:50 [id number] BRITT PRAKASH MD SURGERY SCHEDULE [address] [place] [address] 10/21/2021 14:46:42 10/21/2021 14:47:43 [id number] BRITT PRAKASH MD [facility] [address] [place] [id number] 11/14/2021 10:20:33 11/14/2021 11:40:01 [id number] ELIZA ESPINAL MD [facility] [address] [place] [address] 11/27/2021 08:05:49 11/27/2021 14:33:11 Malignant neoplasm of prostate 472572556 C61 [id number] BRITT PRAKASH MD SURGERY SCHEDULE [address] [place] [address] 1 12/16/2021 11:43:23 12/16/2021 11:43:53 [id number] BRITT PRAKASH MD [facility] [address] [place] [id number] 02/19/2022 15:28:59 02/26/2022 14:36:01 [id number] BRITT PRAKASH MD [facility] [address] [place] [id number] 06/04/2022 12:56:30 06/19/2022 04:38:17 [id number] ELIZA ESPINAL MD [facility] [address] [place] [id number] 06/05/2022 08:45:51 06/05/2022 09:24:17 Malignant neoplasm of prostate 221198462 C61 [id number] BRITT PRAKASH MD [facility] [address],[place] [id number] 09/03/2022 13:05:27 09/03/2022 16:01:48 [id number] ELIZA ESPINAL MD [facility] [address] [place] [id number] 12/04/2022 08:38:53 12/04/2022 09:03:00 Malignant neoplasm of prostate 860521228 C61 History of external beam radiation therapy 2351767111 9103 Z92.3 [id number] BRITT PRAKASH MD [facility] [address],[place] [id number] 02/11/2023 16:16:47 02/11/2023 18:11:20 [id number] BRITT PRAKASH MD [facility] [address],[place] [id number] 09/09/2023 13:30:54 09/09/2023 16:46:41 [id number] ELIZA ESPINAL MD [facility] [address] [place] [id number] 12/10/2023 08:43:56 12/10/2023 09:28:48 Malignant neoplasm of prostate 322839466 C61 History of external beam radiation therapy 8371005424 9103 Z92.3 [id number] BRITT PRAKASH MD [facility] [address],[place] [id number] 02/24/2024 13:20:15 02/24/2024 18:39:41 [id number] [facility] [address] [place] [id number] 05/25/2024 14:31:33 05/25/2024 19:05:16 Health Concerns Section Related Observation LastModified by Organization Detai ls LastModified Time None Recorded Concern Status LastModified by Organization Details LastModified Time None Recorded Advance Directives Directive None Recorded Payers Insurance Date Sequence Insurance Name Policy Number Policy Keenan Covered Member ID Keenan Member ID Guarantor Name 06/05/2024 2 [employer] (MEDICARE SUPPLEMENT) Pavel Langley [id number] Pavel Langley 08/12/2020 1 [place] CHOICES - FFS/TRADITI ONAL Pavel Langley [id number] Pavel Langley 05/15/2024 1 [place]ARE[place] Pavel Langley [id number] Pavel Langley 10/22/2021 2 [employer] (MEDICARE SUPPLEMENT) Pavel Langley [id number] Pavel Langley Notes Date Note Type Note [...] artifactual false staining.C) Left apex: Prostatic adenocarcinoma, Smackover score 3+3 = 6, Grade Group 1, involving one (1) of two (2) cores, l0%.D) Right base: Benign prostatic tissueE) Right mid: Prostatic adenocarcinoma, Tarun score 3+3 = 6, Grade Group 1, involving two (2) of two (2) cores; l0%, 10%.F) Right apex: Prostatic adenocarcinoma, Smackover score 3+3 = 6, Grade Group 1, involving two (2) of two (2) cores; l0% and < 10%. IPSS score today is 8. Dale score is 7. Medical management erectile dysfunction with sildenafil 100 mg ELIZA KEY MD [address] [facility],[address], [place], [address], [facility] 11/27/2021 11:24:17 3 text/html Pavel Langley [...] Benign prostatic tissueB) Left mid: Prostatic adenocarcinoma, Smackover score 3+3 = 6, Grade Group 1, [...] cores; l0%, 10%.F) Right apex: Prostatic adenocarcinoma, Smackover score 3+3 = 6, Grade Group 1, [...] attributes to his hemorrhoids. ELIZA KEY MD [address] ,[address], [place], [address], [facility] 06/05/2022 09:22:22 3 text/html Pavel Langley [...] Benign prostatic tissueB) Left mid: Prostatic adenocarcinoma, Smackover score 3+3 = 6, Grade Group 1, involving one (1) of two (2) cores, at least 20%; see comment.Comment: PIN4 immunohistochemical stain shows a very tiny focus staining at the end of the one core involved by tumor which could possibly represent discontinuous tumor involvement of a larger percent of the core or artifactual false staining.C) Left apex: Prostatic adenocarcinoma, Smackover score 3+3 = 6, Grade Group 1, involving one (1) of two (2) cores, l0%.D) Right base: Benign prostatic tissueE) Right mid: Prostatic adenocarcinoma, Smackover score 3+3 = 6, Grade Group 1, [...] bleeding and no pain ELIZA KEY MD [address] [facility],[address], [place], [address], [facility] 12/04/2022 09:00:40 4 text/html Pavel Langley [...] Benign prostatic tissueB) Left mid: Prostatic adenocarcinoma, Smackover score 3+3 = 6, Grade Group 1, involving one (1) of two (2) cores, at least 20%; see comment.Comment: PIN4 immunohistochemical stain shows a very tiny focus staining at the end of the one core involved by tumor which could possibly represent discontinuous tumor involvement of a larger percent of the core or artifactual false staining.C) Left apex: Prostatic adenocarcinoma, Smackover score 3+3 = 6, Grade Group 1, involving one (1) of two (2) cores, l0%.D) Right base: Benign prostatic tissueE) Right mid: Prostatic adenocarcinoma, Tarun score 3+3 = 6, Grade Group 1, involving two (2) of two (2) cores; l0%, 10%.F) Right apex: Prostatic adenocarcinoma, Smackover score 3+3 = 6, Grade Group 1, [...] on blood thinners now ELIZA KEY MD [address], [place], [address], [facility] 12/10/2023 09:27:05
--- OUTSIDE RECORDS SUMMARY | 2024-10-28 08:15 | XMS_ITS | Encounter Summary ---
Author Organization Healthcare Address [address] [phone] Care Team Providers Care Inspector Advanced Composite Name Role Phone Dion Butts MD Primary Care Provider Myrna vailable Encounter Details Date Type Department Care Team ([facility] Contact Info) Description 10/24/2024 Telephone Professional [facility] Nephrology, Bone & Mineral Metabolism [address], [address] [place] [address] Derek Lopez [address] [address] Social History Tobacco Use Types Packs/Day Years Used Date Smoking Tobacco: Never Assessed Sex and Gender Information Value Date Recorded Sex Assigned at Not on file Legal Sex Male 8:35 PM EDT Gender Identity Not on file Sexual Orientation Not on file documented as of this encounter Miscellaneous Notes * Telephone Encounter - Derek Lopez - 10/24/2024 1:09 PM EDT LVM CH documented in this encounter Plan of Treatment Upcoming Encounters Date Type Department Care Team (Late Contact Info) Description 11/01/2024 1:00 PM EDT Office Visit Professional [facility] Nephrology, Bone & Mineral Metabolism [address], [address] [place] [address] Frank Luther MD [address] [place] [phone] documented as of this encounter Visit Diagnoses Not on filedocumented in this encounter Care Teams Inspector Advanced Composite Relationship Specialty Start Date End Date Dion Butts MD PCP - General Family Medicine 05/11/24 documented as of this encounter
--- OUTSIDE RECORDS SUMMARY | 2024-10-28 08:15 | XMS_ITS | Clinical Summary ---
Author Organization Healthcare Address [address] [place] [address] Care Team Providers Care Supervisor Boarding Name Role Phone Dion Butts MD Primary Care Provider Myrna vailable Encounters Date Type Department Care Team Description 10/24/2024 Telephone Professional [facility] Nephrology, Bone & Mineral Metabolism [address] , [address] [place] [address] Derek Lopez 10/02/2024 Orders Only [facility] [address] [place] [address] Asuncion Larson Proteinuria, unspecified type [...] 11/01/2024 1:00 PM EDT Office Visit [facility]phrology, Bone & Mineral Metabolism [address], [address] [place] [address] Frank Luther MD [address] [place] [phone] Health Maintenance Due Date Last Done Comments [facility]-Depression Screening 1955 [facility]-Hepatitis C Screening 1955 [facility]-Medicare Annual Wellness (AWV) 1955 [facility]-/Child/Adol SDOH Screenings 1955 [facility]- SDOH Screenings 1973 [facility]-Adult SDOH Screenings 1973 [facility]-DTaP,Tdap,and Td Vaccine s (1 - Tdap) 1974 CT Colonography 2000 Colonoscopy 2000 FIT-DNA 2000 FIT 2000 FOBT 2000 Sigmoidoscopy 2000 [facility]-Colorectal Cancer Screening 2000 [facility]-Pneumococcal Vaccine: 50 + Years (1 of 1 - PCV) 2005 [facility]-Zoster Vaccines (1 of 2) 2005 [facility]-ZMACS-92 Vaccine (1 - 20 24-25 season) 2023 [...] on patient's age to complete this topic Insurance [employer] [phone] Care Teams Supervisor Boarding Relationship Specialty Start Date End Date Dion Butts MD PCP - General Family Medicine 05/11/24
--- OUTSIDE RECORDS SUMMARY | 2024-10-28 08:15 | XMS_ITS | Encounter Summary ---
Author Organization [facility] Address [address] [place] [address] Care Team Providers Care Primary Health Care Nurse Name Role Phone Dion Butts MD Primary Care Provider Myrna vailable Encounter Details Date Type Department Care Team (Late Contact Info) Description 10/02/2024 Orders Only [facility] [address] [place] [address] Asuncion Larson Proteinuria, unspecified type [...] Description 11/01/2024 1:00 PM EDT Office Visit [facility] [place] Nephrology, Bone & Mineral Metabolism [address] [facility], [address] [place] [address] Frank Luther MD [address] [place] [phone] Scheduled Orders Name Type Priority Associated [...] unspecified whether stage 3a or 3b CKD ([facility]/HCC) Expected: 10/02/2024 (Approximate), Expires: 04/03/2026 PTH Intact Total Lab Routine Proteinuria, unspecified type Stage 3 chronic kidney disease, unspecified whether stage 3a or 3b CKD ([facility]/HCC) Expected: 10/02/2024 (Approximate), Expires: 04/03/2026 Urinalysis with reflex microscopic (Culture NOT Included) Lab Routine Proteinuria, unspecified type Stage 3 chronic kidney disease, unspecified whether stage 3a or 3b CKD ([facility]) Expected: 10/02/2024 (Approximate), Expires: 04/03/2026 Protein, Random, Urine with Creatinine Lab Routine Proteinuria, unspecified type Stage 3 chronic kidney disease, unspecified whether stage 3a or 3b CKD ([facility]) Expected: 10/02/2024 (Approximate), Expires: 04/03/2026 Creatinine, Random, Urine Lab Routine Proteinuria, unspecified type Stage 3 chronic kidney disease, unspecified whether stage 3a or 3b CKD ([facility]) Expected: 10/02/2024 (Approximate), Expires: 04/03/2026 documented as of this encounter Visit Diagnoses Diagnosis Proteinuria, unspecified type- Primary Stage 3 chronic kidney disease, unspecified whether stage 3a or 3b CKD (CMS/HCC) documented in this encounter Care Teams Primary Health Care Nurse Relationship Specialty Start Date End Date Dion Butts MD PCP - General Family Medicine 05/11/24 documented as of this encounter
[2024-10-28 08:24] LABS: Microscopic, Urine URINE MICROSCOPIC (MICROSCOPIC)
[2024-10-28 08:39] LABS: Hematocrit 36.1 % (42.0-52.0); Hemoglobin 10.4 g/dL (14.1-18.0); Mean Corpuscular HGB Conc 28.8 g/dL (31.8-35.4); Mean Corpuscular Hemoglobin 21.1 pg (27.0-31.2); Mean Corpuscular Volume 73.1 fl (80-94); Nucleated Red Blood Cells % 0 %; Platelet Count 219 K/mm3 (142-424); Red Blood Count 4.94 M/mm3 (4.60-6.20); Red Cell Distribution Width-SD 53.0 fL; White Blood Count 7.9 K/mm3 (4.8-10.8)
[2024-10-28 10:29] LABS: Albumin Level 4.1 g/dl (3.5-5.0); Anion Gap 11.7 mEq/L (5-15); Blood Urea Nitrogen 30 mg/dl (9-20); Calcium 10.0 mg/dl (8.4-10.2); Carbon Dioxide 25 mmol/L (22.0-30.0); Chloride 106 mmol/L (98-107); Creatinine,Serum 1.40 mg/dl (0.66-1.25); Estimated Glomerular Filt Rate 50 ml/min (>60); GFR (African American) 61 ML/MIN (>60); Glucose 259 mg/dl (74-100); Phosphorous 4.4 mg/dl (2.5-4.5); Potassium 4.7 mmoL/L (3.5-5.1); Sodium 138 mmol/L (136-145)
[2024-10-28 10:46] LABS: 25-OH Vitamin D, Total 28.2 ng/mL (30-100)
[2024-10-28 10:52] LABS: Bilirubin,Urine Negative (Negative); Color,Urine YELLOW (Yellow); Glucose,Urine (UA) 3+ (Negative); Ketones,Urine Negative (Negative); Leukocyte Esterase,Urine Negative (Negative); PH,Urine 5.5 (5.0-8.5); Protein,Urine Negative (Negative); Specific Gravity, Urine 1.015 (1.005-1.030); Urobilinogen,Urine 0.2 EU/dl (0.2)
[2024-10-28 11:11] LABS: Bacteria,Urine Trace /lpf; Squamous Epithelial Cell,Urine Occasional #/hpf (0-5)
== END 2024-10-28 23:59 | disposition home or self-care (01) ==
LOC: LAB 08:13
PROVIDERS: PCP Family Medicine; Visit Provider Student in an Organized Health Care Education/Training Program
DX: R80.9 Proteinuria, unspecified (principal); N18.30 Chronic kidney disease, stage 3 unspecified
CPT/HCPCS: 36415; 80069; 81001; 82306; 82570; 83970; 84156; 85027

== ENCOUNTER 2024-11-17 10:53 | Outpatient (CLI) | payer MEDICARE, OTHER, SELFPAY ==
--- OUTSIDE RECORDS SUMMARY | 2024-11-01 13:00 | XMS_ITS | Encounter Summary ---
Author Organization [facility] Address [address] [place] [address] Care Team Providers Care Switch Crew Supervisor Name Role Phone Dion Butts MD Primary Care Provider Myrna vailable Reason for Referral * Consultation (Routine) - Authorized Specialty Diagnoses / Procedures Referred By Contac t Referred To Contact Diagnoses CKD stage 3a, GFR 45-59 ml/min (CMS/HCC) Frank Luther MD [address] [place] [address] Phone: tel: fax: Referral ID Status Reason Start Date Expiration Date V isits Requested Visits Authorized [id number] Authorized 11/01/2024 05/03/2026 1 1 Reason for Visit * Reason Comments Consult * Consultation (Routine) - Closed Specialty Diagnoses / Procedures Referred By Oliver bello Referred To Contact Nephrology Diagnoses Stage 3 chronic kidney disease, unspecified whether stage 3a or 3b CKD (CMS/HCC) Proteinuria, unspecified type Frank Luther MD [address] [place] [address] Phone: tel: fax: Referral ID Status Reason Start Date Expiration Date V isits Requested Visits Authorized [id number] Closed Specialty Services Required 05/22/2024 11/21/2025 1 1 Encounter Details Date Type Department Care Team ([facility] st Contact Info) Description 11/01/2024 1:00 PM EDT Office Visit [facility] Nephrology, Bone & Mineral Metabolism [address], [address] [place] [address] Frank Luther MD [address] [place] [phone] CKD stage 3a, GFR 45-59 ml/min ([facility]) (Primary Dx); Class III obesity with body mass index (BMI) of 40.0 or higher ([facility]); Mixed hyperlipidemia; Hypertensive chronic kidney disease with stage 1 through stage 4 chronic kidney disease, or unspecified chronic kidney disease; Type 2 diabetes mellitus with stage 3 chronic kidney disease, without long-term current use of insulin, unspecified whether stage 3a or 3b CKD ([facility]) Social History Tobacco Use Types Packs/Day Years Used Date Smoking Tobacco: Never Smokeless Tobacco: Never Tobacco Cessation:Counseling Given: Not Answered Alcohol Use Standard Drinks/Week Comments Never 0 (1 standard drink = 0.6 oz pur e alcohol) Sex and Gender Information Value Date Recorded Sex Assigned at Not on file Legal Sex Male 8:35 PM EDT Gender Identity Not on file Sexual Orientation Not on file documented as of this encounter Last Filed Vital Signs Vital Sign Reading Time Taken Comments Blood Pressure 98/70 11/01/2024 12:48 PM EDT Pulse 71 11/01/2024 12:48 PM EDT Temperature 36.8 C (98.3 F) 11/01/2024 12:48 PM EDT Respiratory Rate 16 11/01/2024 12:48 PM EDT Oxygen Saturation 95% 11/01/2024 12:48 PM EDT Inhaled Oxygen Concentration - - Weight 127 kg (279 lb 1.6 oz) 11/01/2024 12:48 P M EDT Height 175.3 cm (5' 9 ) 11/01/2024 12:48 PM EDT per pt Body Mass Index 41.22 11/01/2024 12:48 PM EDT documented in this encounter Miscellaneous Notes * Progress Notes - Frank Luther MD - 11/01/2024 1:00 PM EDT Nephrology Outpatient Clinic New Consult Note Chronic kidney disease clinic Patient: Pavel Zapata Primary Care Provider: Dion Butts MD Referring Provider: Dion Butts MD Reason for consult: CKD HPI/Subjective Pavel Zapata is a 69 y.o. male with a PMH of large pulmonary embolism in July 2023, HTN, HLD, Obesity BMI 41.22, Prostate Cancer, who presents for evaluation of CKD. He had a 24 hour urine creatinine clearance in April 2024 in the 79.1 and he had a 24 hour urine protein with 369 mg . His spot urine proteins have been undetectable or <0.2. He is unaware of any history of kidney problems. He has had diabetes mellitus and hypertension for several years. He has a history of prostate cancer, but is s/p radiation and with no urinary issues. He says his urine sometimes appears greasy, but otherwise feels like it looks normal. He drinks 3-4 L of fluids per day. No family history of kidney problems. No family members requiring dialysis. He has some chronic lower extremity edema and takes Lasix and Jardiance. No other issues. He feels to be in his normal state of health. He has not eaten since 6:00 am this morning because he has plans to go to [place] this afternoon with his and eat all the crab legs he can. ROS Review of Systems Constitutional: Negative. HENT: Negative. Eyes: Negative. Respiratory: Negative. Cardiovascular: Positive for leg swelling. Gastrointestinal: Negative. Endocrine: Negative. Genitourinary: Negative. Musculoskeletal: Negative. Skin: Negative. Allergic/Immunologic: Negative. Neurological: Negative. Hematological: Negative. Psychiatric/Behavioral: Negative. History: Past Medical History[1] Problem List[2] Surgical History[3] Family History[4] Social History Socioeconomic History Marital status: Spouse name: Not on file Number of children: Not on file Years of education: Not on file Highest education level: Not on file Occupational History Not on file Tobacco Use Smoking status: Not on file Smokeless tobacco: Not on file Substance and Sexual Activity Alcohol use: Not on file Drug use: Not on file Sexual activity: Not on file Other Topics Concern Not on file Social History Narrative Not on file Social Drivers of Health Financial Resource Strain: Not on file Food Insecurity: Not on file Transportation Needs: Not on file Physical Activity: Not on file Stress: Not on file Social Connections: Unknown (01/20/2023) Received from [facility] Family and Community Support Help with Day-to-Day Activities: Not on file Lonely or Isolated: Not on file Intimate Partner Violence: Unknown (01/20/2023) Received from [facility] Abuse Screen Unsafe at Home or Work/School: Not on file Feels Threatened by Someone?: Not on file Does Anyone Keep You from Contacting Others or Doint Things Outside the Home?: Not on file Physical Sign of Abuse Present: Not on file Housing Stability: Unknown (01/20/2023) Received from [facility] Housing Stability Current Living Arrangements: Not on file Potentially Unsafe Housing Conditions: Not on file Allergies[5] Medications: Current Medications: Current Outpatient Medications Medication Instructions aspirin 81 mg, Daily atorvastatin (Lipitor) 80 MG tablet bisoprolol (Zebeta) 5 MG tablet famotidine (Pepcid) 40 MG tablet fenofibrate (TRIGLIDE) 160 mg furosemide (Lasix) 20 MG tablet Jardiance 10 MG omeprazole (PRILOSEC) 20 mg, ZZ Daily RT psyllium (Metamucil) 58.6 % packet 1 packet, Daily spironolactone (Aldactone) 25 MG tablet Toujeo Max SoloStar 300 UNIT/ML injection pen Xarelto 20 mg Objective There were no vitals taken for this visit. Temp: [36.8 ??C (98.3 ??F)] 36.8 ??C (98.3 ??F) Heart Rate: [71] 71 Resp: [16] 16 BP: (98)/(70) 98/70 Physical Exam: Physical Exam Constitutional: General: He is not in acute distress. Appearance: Normal appearance. He is obese. He is not ill-appearing. HENT: Head: Normocephalic. Right Ear: External ear normal. Left Ear: External ear normal. Nose: Nose normal. Mouth/Throat: Mouth: Mucous membranes are moist. Pharynx: Oropharynx is clear. Eyes: Conjunctiva/sclera: Conjunctivae normal. Pupils: Pupils are equal, round, and reactive to light. Cardiovascular: Rate and Rhythm: Normal rate. Pulses: Normal pulses. Pulmonary: Effort: Pulmonary effort is normal. Abdominal: General: Abdomen is flat. Musculoskeletal: General: Normal range of motion. Cervical back: Normal range of motion. Right lower leg: Edema present. Left lower leg: Edema present. Skin: General: Skin is warm and dry. Capillary Refill: Capillary refill takes less than 2 seconds. Neurological: General: No focal deficit present. Mental Status: He is alert and oriented to person, place, and time. Mental status is at baseline. Psychiatric: Mood and Affect: Mood normal. Behavior: Behavior normal. Thought Content: Thought content normal. Judgment: Judgment normal. Laboratory: I have personally reviewed these lab results and discuss their significance below. LAB RESULTS Renal Panel: No results found for: NA , K , CL , CO2 , BUN , BUNPRE , BUNPOST , CREATININE , EGFR , CA , GLU , PHOS , ALBUMIN CBC: No results found for: WBC , RBC , HGB , HCT , PLT , MCV , MCH , MCHC , RDW , NRBC Iron studies: No results found for: FERRITIN , IRON , IRONSAT , TIBC Urine studies: No results found for: CAR , CAUR , CALCIUMUR , PHOSUR , [id number] , [id number] , CREATUR MBD: No results found for: PTH , CA , CALCIUM , ICAS , PHOS , MG VITAMIN D 25 No results found for: VITD25 VITAMIN D 1,25 No results found for: VITD32 Paraproteinemia Labs: No results found for: SPEP , KAPPALAMBDA Nutritional: No results found for: PREALBUMIN , VITD25 Endocrine profile: No results found for: TESTOSTERONE , TESTOST , FSH , LH , PROLACTIN , TSH , [id number] , FREET4 , CORTISOL [facility] Labs 10/28/24 UA +3 glucose, neg blood, neg protein Urine creatinine 15, protein 8.0 CBC: wbc 10.4, hgb 10.9, plt 240 October 28, 2024 RFP: Na 138, K 4.7, Cl 106, CO2 25, BUN 30, Cr 1.4 , GFR 50, Phos 4.4, Alb 4.1 pth 50.8, vit d 28.2 CBC: WBC 7.9, HGB 10.4, PLT 219 05/16/24 Na 140, K 5.1, CL 105, CO2 24, BUN 31, Cr 1.4, GFR 50, A1c 8.4 % 05/10/24 - Cr cl 79.1 24 hr urine protein 369 mg Imaging: No recent kidney imaging to review, but he had several Cts in 2023 which I will attempt to find records to see if I can visualize his kidney anatomy Impression & Plan: Pavel Zapata is a 69 y.o. male with a PMH of HLD, HTN, DM2 who presents for evaluation of CKDstage 3a on 11/01/2024 #CKD Stage 3a #mild, persistent proteinuria #Diabetes mellitus type 2 with CKD Etiology: Diabetic nephropathy Baseline serum creatinine: 1.4 Most recent Scr: 1.4 eGFR 50 mL/min Electrolytes, acid/base, volume status wnl Urine: +3 glucose, Neg protein, neg blood on UA. 24 hr urine protein 369 mg Anatomy: suspected normal pending imaging review Risk factor reduction to slow progression of kidney disease: -BP Control goal BP <130/80 -DM control goal A1c <7.0% -Lifestyle management: ---Maintain healthy weight: Body mass index is 41.22 kg/m??. Is above goal ---Diet recommendations: Heart healthy and Low sodium <2g/day ---Daily exercise 20-30 minutes as tolerated -Avoid NSAIDs -CLAUDIA blockade: Sprionlactone 25 mg -SGLT2 inhibitor: Jardiance 10 mg #HTN in CKD -goal BP <130/80 - at goal today, BP low in clinic but he is asymptomatic -Spironolactone 25 mg -Bisoprolol 5 mg daily #Anemia in CKD -Hgb 10.9 - he is on a blood thinner but does not report any GI blood loss symptoms -Continue to monitor -if stays low or goes below 10, can check iron studies #CKD Bone and Mineral Disease -PTH and vitamin d at goal #Hyperlipidemia in CKD -on statin Recommendations and plan: -I have reviewed Mr. Zapata's laboratory studies from Apr 2024 and, May 2024, and more recently in October 2024 and he has relatively stable creatinine around 1.4 with eGFR in the 50s. He has some nonnephrotic range proteinuria that was confirmed with a 24 hour urine protein of 369 mg. He likely has some degree of diabetic nephropathy. His blood pressure is too low to add an ACEi or ARB today. Heis on an SGLT2 inhibitor. No medication changes today. No further work up needed at this time as his UA has an inactive sediment and creatinine is stable -He should avoid NSAIDs -He drinks a lot of fluids already RTC in 1 year at [facility] specialty clinic Frank Luther MD Division of Nephrology [facility] Counseling Documentation: The patient was counseled regarding COUNSELING TOPICS: diagnostic results, prognosis, risks and benefit of treatment options, risk factor reductions, instructions for management, patient and family education, medication changes, diagnostic impressions, Heart healthy diet, regular physical activity and weight control, Avoidance of NSAIDs and other nephrotoxins, and terminal carman nature of condition. Education provided was verbal counseling. Additional time was spent in care coordination including medical record review. ENCOUNTER TIMING: I personally spent a total of 55 minutes on this encounter. This time includes face to face with patient, counseling and discussion, lab/result interpretation, coordination of follow-up care, document review. The total time of encounter was 55 minutes and greater than 50% of the visit was spent in c ounseling/coordination of care. . MDM: - was based on the following: Labs reviewed Urine studies: UA, spot urine protein and creatinine ratio, or 24 hour urine for creatinine clearance or protein and Metabolic profile: renal panel or CBC Old chart reviewed ORDERS PLACED THIS ENCOUNTER Orders Placed This Encounter Procedures CBC W/O Differential Standing Status: Future Expected Date: 11/01/2025 Expiration Date: 05/05/2026 Release to patient in [facility]: Immediate Urinalysis with reflex microscopic (Culture NOT Included) Standing Status: Future Expected Date: 11/01/2025 Expiration Date: 05/05/2026 [facility]: Immediate Vitamin D 25 Hydroxy Standing Status: Future Expected Date: 11/01/2025 Expiration Date: 05/05/2026 [facility]: Immediate PTH Intact Total Standing Status: Future Expected Date: 11/01/2025 Expiration Date: 05/05/2026 [facility]: Immediate Albumin-creatinine ratio, urine, random Standing Status: Future Expected Date: 11/01/2025 Expiration Date: 05/05/2026 [facility]: Immediate Protein, Random, Urine with Creatinine Standing Status: Future Expected Date: 11/01/2025 Expiration Date: 05/05/2026 [facility]: Immediate Renal Function Panel, Plasma Standing Status: Future Expected Date: 11/01/2025 Expiration Date: 05/05/2026 Release to patient in [facility]: Immediate Follow Up Nephrology [facility] [place] Standing Status: Future Expected Date: 11/01/2025 Expiration Date: 12/02/2025 Referral Priority: Routine Referral Type: Consultation Number of Visits Requested: 1 Problem List Items Addressed This Visit Class III obesity with body mass index (BMI) of 40.0 or higher ([facility]) CKD stage 3a, GFR 45-59 ml/min ([facility]/HCC) - Primary Relevant Medications atorvastatin (Lipitor) 80 MG tablet bisoprolol (Zebeta) 5 MG tablet Jardiance 10 MG furosemide (Lasix) 20 MG tablet spironolactone (Aldactone) 25 MG tablet Other Relevant Orders CBC W/O Differential Urinalysis with reflex microscopic (Culture NOT Included) Vitamin D 25 Hydroxy PTH Intact Total Albumin-creatinine ratio, urine, random Protein, Random, Urine with Creatinine Renal Function Panel, Plasma Follow Up Nephrology Mixed hyperlipidemia Relevant Medications atorvastatin (Lipitor) 80 MG tablet fenofibrate (Triglide) 160 MG tablet Hypertensive chronic kidney disease with stage 1 through stage 4 chronic kidney disease, or unspecified chronic kidney disease Relevant Medications atorvastatin (Lipitor) 80 MG tablet bisoprolol (Zebeta) 5 MG tablet Jardiance 10 MG furosemide (Lasix) 20 MG tablet spironolactone (Aldactone) 25 MG tablet Type 2 diabetes mellitus with stage 3 chronic kidney disease, without long-term current use of insulin ([facility]) Relevant Medications atorvastatin (Lipitor) 80 MG tablet bisoprolol (Zebeta) 5 MG tablet Jardiance 10 MG fenofibrate (Triglide) 160 MG tablet furosemide (Lasix) 20 MG tablet spironolactone (Aldactone) 25 MG tablet Toujeo Max SoloStar 300 UNIT/ML injection pen aspirin 81 MG EC tablet I confirm that I have addressed the patient's longitudinal multifaceted and complex health related active and chronic conditions that will require ongoing care with myself or someone on my team. [1] No past medical history on file. [2] There is no problem list on file for this patient. [3] No past surgical history on file. [4] No family history on file. [5] Not on File documented in this encounter Plan of Treatment Scheduled Orders Name Type Priority Associated Diagnoses Orde r Schedule CBC W/O Differential Lab Routine CKD stage 3a, GFR 45-59 ml/min (CMS/HCC) Expected: 11/01/2025 (Approximate), Expires: 05/05/2026 Urinalysis with reflex microscopic (Culture NOT Included) Lab Routine CKD stage 3a, GFR 45-59 ml/min ([facility]) Expected: 11/01/2025 (Approximate), Expires: 05/05/2026 Vitamin D 25 Hydroxy Lab Routine CKD stage 3a, GFR 45-59 ml/min ([facility]) Expected: 11/01/2025 (Approximate), Expires: 05/05/2026 PTH Intact Total Lab Routine CKD stage 3a, GFR 45-59 ml/min ([facility]) Expected: 11/01/2025 (Approximate), Expires: 05/05/2026 Albumin-creatinine ratio, urine, random Lab Routine CKD stage 3a, GFR 45-59 ml/min ([facility]) Expected: 11/01/2025 (Approximate), Expires: 05/05/2026 Protein, Random, Urine with Creatinine Lab Routine CKD stage 3a, GFR 45-59 ml/min ([facility]) Expected: 11/01/2025 (Approximate), Expires: 05/05/2026 Renal Function Panel, Plasma Lab Routine CKD stage 3a, GFR 45-59 ml/min ([facility]) Expected: 11/01/2025 (Approximate), Expires: 05/05/2026 Scheduled Referrals Name Type Priority Associated Diagnoses Order Schedule Follow Up Nephrology Outpatient Referral Routine CKD stage 3a, GFR 45-59 ml/min ([facility]) Expected: 11/01/2025 (Approximate), Expires: 12/02/2025 documented as of this encounter Visit Diagnoses Diagnosis CKD stage 3a, GFR 45-59 ml/min ([facility])- Primary Class III obesity with body mass index (BMI) of 40.0 or higher ([facility]) Mixed hyperlipidemia Hypertensive chronic kidney disease with stage 1 through stage 4 chronic kidney disease, or unspecified chronic kidney disease Type 2 diabetes mellitus with stage 3 chronic kidney disease, without long-term current use of insulin, unspecified whether stage 3a or 3b CKD ([facility]) documented in this encounter Additional Health Concerns Assessment Noted Time A fall risk assessment has been complete d for the patient 11/01/2024 12:59 PM EDT A Body Mass Index follow-up plan has been documented for the patient 11/01/2024 2:13 PM EDT documented as of this encounter Care Teams Switch Crew Supervisor Relationship Specialty Start Date End Date Dion Butts MD PCP - General Family Medicine 05/11/24 documented as of this encounter
[2024-11-17 16:50] LABS: Hematocrit 36.9 % (42.0-52.0); Hemoglobin 10.2 g/dL (14.1-18.0); Immature Granulocytes % 0.5 %; Mean Corpuscular HGB Conc 27.6 g/dL (31.8-35.4); Mean Corpuscular Hemoglobin 20.1 pg (27.0-31.2); Mean Corpuscular Volume 72.6 fl (80-94); Nucleated Red Blood Cells % 0 %; Platelet Count 259 K/mm3 (142-424); Red Blood Count 5.08 M/mm3 (4.60-6.20); Red Cell Distribution Width-SD 52.8 fL; White Blood Count 7.7 K/mm3 (4.8-10.8)
[2024-11-17 18:57] LABS: Alanine Aminotransferase 25 U/L (12-78); Albumin Level 4.1 g/dl (3.5-5.0); Albumin/Globulin Ratio 1.8 (1.1-1.8); Anion Gap 11.5 mEq/L (5-15); Aspartate Amino Transferase 33 U/L (17-59); Bilirubin,Total 0.5 mg/dl (0.2-1.3); Blood Urea Nitrogen 21 mg/dl (9-20); Calcium 9.6 mg/dl (8.4-10.2); Carbon Dioxide 26 mmol/L (22.0-30.0); Chloride 104 mmol/L (98-107); Creatinine,Serum 1.20 mg/dl (0.66-1.25); Estimated Glomerular Filt Rate 60 ml/min (>60); GFR (African American) 73 ML/MIN (>60); Globulin 2.3 g/dL (1.3-3.2); Glucose 118 mg/dl (74-100); Potassium 4.5 mmoL/L (3.5-5.1); Sodium 137 mmol/L (136-145); Total Protein,Serum 6.4 g/dl (6.3-8.2); Triglycerides 177 mg/dl (30-150)
[2024-11-17 18:58] LABS: Alkaline Phosphatase 83 U/L (38-126); Cholesterol 152 mg/dl (140-200); HDL Cholesterol 27 mg/dl (40-60)
[2024-11-17 19:41] LABS: Prostate Specific Ag, Diagnost < 0.064 ng/ml (0.0-4.0)
[2024-11-17 23:52] LABS: Hemoglobin A1C 7.5 % (4.0-6.0)
--- OUTSIDE RECORDS SUMMARY | 2024-11-20 11:02 | XMS_ITS | Clinical Summary ---
Author Organization [facility] Address [address] [place] [address] Care Team Providers Care Hookman Name Role Phone Dion Butts MD Primary Care Provider Myrna vailable Allergies Active Allergy Reactions Criticality Noted Date Comments Hydrocodone Other - please document in the comment field Low 11/01/2024 Hydrocodone-Acetaminoph en Other - please document in the comment field Medium 10/12/2016 NIGHT SWEATS/SHAKING Medications atorvastatin (Lipitor) 80 MG tablet 10/16/2024 Active bisoprolol (Zebeta) 5 MG tablet 09/30/2024 Active Jardiance 10 MG 10/25/2024 Act veto famotidine (Pepcid) 40 MG tablet 10/06/2024 Active fenofibrate (Triglide) 160 MG tablet Take 1 tablet by mouth. Active furosemide (Lasix) 20 MG tablet 10/27/2024 Active omeprazole (PriLOSEC) [address] capsule Take 1 capsule by mouth 1 time each day. Active Xarelto 20 MG tablet Take 1 tablet by mouth. Active spironolactone (Aldactone) 25 MG tablet 10/25/2024 Active Toujeo Max SoloStar 300 UNIT/ML injection pen 10/06/2024 Activ e psyllium (Metamucil) 58.6 % packet Take 1 packet by mouth daily. Active aspirin 81 MG EC tablet Take 1 tablet by mouth daily. Active Active Problems Problem Noted Date Diagnosed Date Class III obesity with body mass index (BMI) of 40.0 or higher 11/01/2024 CKD stage 3a, GFR 45-59 ml/min 11/01/2024 Mixed hyperlipidemia 11/01/2024 Hypertensive chronic kidney disease with stage 1 through stage 4 chronic kidney disease, or unspecified chronic kidney disease 11/01/2024 Type 2 diabetes mellitus wit h stage 3 chronic kidney disease, without long-term current use of insulin 11/01/2024 Encounters Date Type Department Care Team Description 11/01/2024 1:00 PM EDT Office Visit [facility] Nephrology, Bone & Mineral Metabolism [address], [address] [place] [address] Frank Luther MD CKD stage 3a, GFR 45-59 ml/min ([facility]) (Primary Dx); Class III obesity with body mass index (BMI) of 40.0 or higher (CMS/HCC); Mixed hyperlipidemia; Hypertensive chronic kidney disease with stage 1 through stage 4 chronic kidney disease, or unspecified chronic kidney disease; Type 2 diabetes mellitus with stage 3 chronic kidney disease, without long-term current use of insulin, unspecified whether stage 3a or 3b CKD (CMS/HCC) 11/01/2024 Travel 10/24/2024 Telephone [facility] Nephrology, Bone & Mineral Metabolism [address], [address] [place] [address] Derek Lopez 10/02/2024 Orders Only [facility] [address] [place] [id number] Asuncion Larson Proteinuria, unspecified type (Primary Dx); Stage 3 chronic kidney disease, unspecified whether stage 3a or 3b CKD ([facility]/HCC) from Last 3 Months Social History Tobacco [...] Mass Index 41.22 11/01/2024 12:48 PM EDT Plan of Treatment Health Maintenance Due Date Last Done Comments [facility]-Depression Screening 1955 [facility]-Diabetes: Hemoglobin A1C 1955 [facility]-Hepatitis C Screening 1955 [facility]-Medicare Annual Wellness (AWV) 1955 [facility]-/Child/Adol SDOH Screenings 1955 Diabetes: Dental Exam 1965 [facility]- SDOH Screenings 1973 [facility]-Adult SDOH Screenings 1973 [facility]-DTaP,Tdap,and Td Vaccine s (1 - Tdap) 1974 [facility]-Pneumococcal Vaccine: 50 + Years (1 of 2 - PCV) 1974 CT Colonography 2000 Colonoscopy 2000 FIT-DNA 2000 FIT 2000 FOBT 2000 Sigmoidoscopy 2000 [facility]-Colorectal Cancer Screening 2000 [facility]-Zoster Vaccines (1 of 2) 2005 [facility]-RSV Vaccine: 60+ Years o r (1 - Risk 60-74 years 1-dose series) 2015 APV-[id number]-70 Vaccine (1 - 20 24-25 season) 2023 [facility]-Influenza Vaccine (#1) 2024 [facility]-Obesity Intervention Completed 11/01/2024 HPV Vaccines Aged Out No longer eligi [...] patient's age to complete this topic Insurance [place] [address] Care Teams Hookman Relationship Specialty Start Date End Date Dion Butts MD PCP - General Family Medicine 05/11/24
--- OUTSIDE RECORDS SUMMARY | 2024-11-20 11:02 | XMS_ITS | Clinical Summary ---
Author Organization [facility] Address [address] [place] [address] Care Team Providers Care Surface Grinder Tender Name Role Phone Provider, No Known Primary [...] Insurance MEDICARE A & B Care Teams Surface Grinder Tender Relationship Specialty Start Date End Date Provider, No Known [facility] [place] [address] PCP - General 10/12/16
--- OUTSIDE RECORDS SUMMARY | 2024-11-20 11:02 | XMS_ITS | Encounter Summary ---
Author Organization Healthcare Address [address] [id number] Care Team Providers Care Roofing Sales Representative Name Role Phone Dion Butts MD Primary Care Provider Myrna vailable Encounter Details Date Type Department Care Team ([facility] st Contact Info) Description 10/24/2024 Telephone [facility] [address], [address] [place] [address] [facility] [address] [place] [address] Social History Tobacco Use Types Packs/Day Years [...] documented in this encounter Plan of Treatment Not on file documented as of this encounter Visit Diagnoses Not on filedocumented in this encounter Care Teams Roofing Sales Representative Relationship Specialty Start Date End Date Dion Butts MD PCP - General Family Medicine 05/11/24 documented as of this encounter
--- OUTSIDE RECORDS SUMMARY | 2024-11-20 11:02 | XMS_ITS | Encounter Summary ---
Author Organization Healthcare Address [address] [place] [address] Care Team Providers Care Practice Coordinator Name Role Phone Dion Butts MD Primary Care Provider Myrna vailable Encounter Details Date Type Department Care Team (Latest Contact Info) Description 11/01/2024 Travel Social History Tobacco Use Types Packs/Day Years Used Date Smoking Tobacco: Never Smokeless Tobacco: Never Alcohol Use Standard Drinks/Week Comments Never 0 (1 standard drink = 0.6 oz pur e alcohol) Sex and Gender Information Value Date Recorded Sex Assigned at Not on file Legal Sex Male 8:35 PM EDT Gender Identity Not on file Sexual Orientation Not on file documented as of this encounter Plan of Treatment Not on file documented as of this encounter Visit Diagnoses Not on filedocumented in this encounter Additional Health Concerns Assessment Noted Time A fall risk assessment has been complete d for the patient 11/01/2024 12:59 PM EDT A Body Mass Index follow-up plan has been documented for the patient 11/01/2024 2:13 PM EDT documented as of this encounter Care Teams Practice Coordinator Relationship Specialty Start Date End Date Dion Butts MD PCP - General Family Medicine 05/11/24 documented as of this encounter
--- OUTSIDE RECORDS SUMMARY | 2024-11-20 11:02 | XMS_ITS | Encounter Summary ---
Author Organization Healthcare Address [address] [place] [address] Care Team Providers Care Finish Opener Name Role Phone Dion Butts MD Primary Care Provider Myrna vailable Encounter Details Date Type Department Care Team (Late st Contact Info) Description 10/02/2024 Orders Only [facility] [address] [place] [id number] [...] as of this encounter Plan of Treatment Scheduled Orders [...] CKD (CMS/HCC) Expected: 10/02/2024 (Approximate), Expires: 04/03/2026 PTH Intact Total Lab Routine Proteinuria, unspecified type Stage 3 chronic kidney disease, unspecified whether stage 3a or 3b CKD (CMS/HCC) Expected: 10/02/2024 (Approximate), Expires: 04/03/2026 Urinalysis with reflex microscopic (Culture NOT Included) Lab Routine Proteinuria, unspecified type Stage 3 chronic kidney disease, unspecified whether stage 3a or 3b CKD ([facility]) Expected: 10/02/2024 (Approximate), Expires: 04/03/2026 Protein, Random, Urine with Creatinine Lab Routine Proteinuria, unspecified type Stage 3 chronic kidney disease, unspecified whether stage 3a or 3b CKD ([facility]) Expected: 10/02/2024 (Approximate), Expires: 04/03/2026 Creatinine, Random, Urine Lab Routine Proteinuria, unspecified type Stage 3 chronic kidney disease, unspecified whether stage 3a or 3b CKD ([facility]) Expected: 10/02/2024 (Approximate), Expires: 04/03/2026 documented as of this encounter Visit Diagnoses Diagnosis Proteinuria, unspecified type- Primary Stage 3 chronic kidney disease, unspecified whether stage 3a or 3b CKD ([facility]) documented in this encounter Care Teams Finish Opener Relationship Specialty Start Date End Date Dion Butts MD PCP - General Family Medicine 05/11/24 documented as of this encounter
== END 2024-11-17 23:59 | disposition home or self-care (01) ==
LOC: LAB.DROPOF 11-20 10:54
PROVIDERS: PCP Nurse Practitioner Family; Visit Provider Nurse Practitioner Family
DX: E11.9 Type 2 diabetes mellitus without complications (principal); C61 Malignant neoplasm of prostate; I10 Essential (primary) hypertension; E78.5 Hyperlipidemia, unspecified; Z79.4 Long term (current) use of insulin
CPT/HCPCS: 80053; 80061; 83036; 84153; 85025

== ENCOUNTER 2025-03-28 10:05 | Outpatient (CLI) | payer MEDICARE, OTHER, SELFPAY ==
[2025-03-28 17:59] LABS: Hematocrit 48.8 % (42.0-52.0); Hemoglobin 15.7 g/dL (14.1-18.0); Immature Granulocytes % 0.3 %; Mean Corpuscular HGB Conc 32.2 g/dL (31.8-35.4); Mean Corpuscular Hemoglobin 29.1 pg (27.0-31.2); Mean Corpuscular Volume 90.5 fl (80-94); Nucleated Red Blood Cells % 0 %; Platelet Count 169 K/mm3 (142-424); Red Blood Count 5.39 M/mm3 (4.60-6.20); Red Cell Distribution Width-SD 53.9 fL; White Blood Count 7.2 K/mm3 (4.8-10.8)
[2025-03-28 18:39] LABS: Albumin Level 4.3 g/dl (3.5-5.0); Chloride 106 mmol/L (98-107); Potassium 4.1 mmoL/L (3.5-5.1); Sodium 137 mmol/L (136-145)
[2025-03-28 18:42] LABS: Alanine Aminotransferase 31 U/L (12-78); Albumin/Globulin Ratio 1.7 (1.1-1.8); Alkaline Phosphatase 74 U/L (38-126); Anion Gap 10.1 mEq/L (5-15); Aspartate Amino Transferase 38 U/L (17-59); Bilirubin,Total 0.7 mg/dl (0.2-1.3); Blood Urea Nitrogen 26 mg/dl (9-20); Calcium 9.3 mg/dl (8.4-10.2); Carbon Dioxide 25 mmol/L (22.0-30.0); Creatinine,Serum 1.20 mg/dl (0.66-1.25); Estimated Glomerular Filt Rate 60 ml/min (>60); GFR (African American) 72 ML/MIN (>60); Globulin 2.6 g/dL (1.3-3.2); Glucose 106 mg/dl (74-100); Total Protein,Serum 6.9 g/dl (6.3-8.2)
--- OUTSIDE RECORDS SUMMARY | 2025-03-29 10:41 | XMS_ITS | Clinical Summary ---
Author Organization [facility] Address [address] [place] [address] Care Team Providers Care Casting Wheel Operator Helper Name Role Phone Dion Butts MD Primary [...] without long-term current use of insulin 11/01/2024 Social History Tobacco Use Types Packs/Day Years [...] Health Maintenance Due Date Last Done Comments [facility]-Depression Screening 1955 [facility]-Diabetes: Hemoglobin A1C 1955 [facility]-Hepatitis C Screening 1955 [facility]-Medicare Annual Wellness (AWV) 1955 [facility]-Infant/Child/Adol SDOH Screenings 1955 Diabetes: Dental Exam 1965 [facility]- SDOH Screenings 1973 [facility]-Adult SDOH Screenings 1973 [facility]-DTaP,Tdap,and Td Vaccine s (1 - Tdap) 1974 [facility]-Pneumococcal Vaccine: 50 + Years (1 of 2 - PCV) 1974 CT Colonography 2000 Colonoscopy 2000 [facility]-DNA 2000 FIT 2000 FOBT 2000 Sigmoidoscopy 2000 [facility]-Colorectal Cancer Screening 2000 [facility]-RSV Vaccine: 60+ Years o r (1 - Risk 50-74 years 1-dose series) 2005 [facility]-Zoster Vaccines (1 of 2) 2005 [id number] Vaccine (1 - 20 25-26 season) 2024 [facility]-Influenza Vaccine (#1) 2024 [facility]-Obesity Intervention Completed 11/01/2024 HPV Vaccines (No Doses Required) Completed [facility]-HIB Vaccines Aged Out No longer e [...] patient's age to complete this topic [place] [address] [place] [address] MEDICARE Care Teams Casting Wheel Operator Helper Relationship Specialty Start Date End Date Dion Butts MD PCP - General Family Medicine 05/11/24
--- OUTSIDE RECORDS SUMMARY | 2025-03-29 10:41 | XMS_ITS | Clinical Summary ---
Author Organization [facility] Address [address] [place] [address] Care Team Providers Care Road Roller Operator Name Role Phone Provider, No Known Primary [...] C SCREENING 10/12/2016 AAA SCREEN ONCE 2020 INFLUENZA VACCINE 11/10/2024 COVID-19 Vaccine ( season) 2024 Insurance MEDICARE A & B Care Teams Road Roller Operator Relationship Specialty Start Date End Date Provider, No Known [facility] [place] [address] PCP - General 10/12/16
== END 2025-03-28 23:59 | disposition home or self-care (01) ==
LOC: LAB.DROPOF 03-29 10:04
PROVIDERS: PCP Family Medicine; Visit Provider Family Medicine
DX: E11.69 Type 2 diabetes mellitus with other specified complication (principal); Z79.4 Long term (current) use of insulin
CPT/HCPCS: 80053; 85025